=== PATIENT | female | born 1950 | race Caucasian/White ===

== ENCOUNTER 2022-06-17 13:34 | Outpatient (RCR) | payer MEDICARE, SELFPAY ==
--- NOTE | 2022-05-27 15:42 | URNOTE ---
Request received for authorization for Zoledronic acid (Reclast) ([id number]). Prior Authorization is Not Required per [facility] injectable drug authorization list.
[2022-06-17 14:15] VITALS: BP 126/76; PULSE 98; RESP 16; TEMP 36.9; O2SAT 98
[2022-06-17 14:31] LABS: Creatinine* 0.6 mg/dL (0.5-1.5); Est. Creatinine Clearance* 41.99; Estimated Glomerular Filt Rate 97 ml/min
[2022-06-17 14:32] LABS: Calcium* 9.2 mg/dL (8.4-10.6)
== END 2022-12-14 23:59 | disposition home or self-care (01) ==
LOC: CCIC 13:34
PROVIDERS: PCP Family Medicine; Referring Provider Family Medicine; Visit Provider Clinical Nurse Specialist
DX: M81.0 Age-related osteoporosis without current pathological fracture (principal)
CPT/HCPCS: 36415; 82310; 82565; 96374

== ENCOUNTER 2022-08-26 12:47 | Outpatient (CLI) | payer MEDICARE, SELFPAY ==
--- NOTE | 2022-08-26 13:00 | CRLHL7_ITS ---
For Patients: As a result of the Century Cures Act, medical imaging exams and procedure reports are released immediately into your electronic medical record. You may view this report before your referring provider. If you have questions, please contact your health care provider. DXA BONE MINERAL DENSITY STUDY 08/26/2022 Current height (in): 62.0. Weight (lb): 160.0. Menopause age: 54. Ethnicity: White. 1. Have you had a previous hip or vertebral fracture? No. 2. Have you had any fractures during your adult life which did not result from significant trauma (e.g., auto accident)? No. 3. Did either of your parents have a hip fracture? No. 4. Do you smoke? No. 5. Have you ever taken Glucocorticoids? No. 6. Do you have rheumatoid arthritis? No. 7. Do you have secondary osteoporosis? No. 8. Do you drink 3 or more alcoholic drinks per day? No. 9. Are you being treated for osteoporosis? Yes. 10. Have you ever taken any of the following medications: Actonel, Evista, Fosamax, Miacalcin, Reclast, Boniva, Forteo, HRT (i.e. estrogen/hormone therapy), Protelos, Prolia, Vitamin D, Calcium, other ??? please specify. ANSWER: Yes, Fosamax, Reclast, vitamin D, calcium. 11. Do you have any of the following medical conditions: Anorexia or bulimia, asthma or emphysema, end stage renal disease, hyperparathyroidism, any seizure disorders, cancer, inflammatory bowel diseases, hysterectomy, other ??? please specify. ANSWER: No. 12. What was your maximum height (inches)? 64. 13. Do you perform weight bearing exercise regularly? No. 14. Do you regularly consume dairy products? Yes. 15. Do you drink caffeinated beverages? Yes. 16. At what age did your period start? 15. 17. Are you premenopausal? No. 18. How many full term pregnancies have you had? 3. 19. Have you ever missed your period for more than 6 months in a row (not including or menopause)? No. TECHNIQUE: Bone mineral density study was performed using the [employer]. FINDINGS: The results of the study expressed as bone mineral density (BMD) are as follows: Lumbar spine L1 to L3: BMD: 0.838 g/cm2. T-score: -1.6. Z-score: 0.4. Neck Left: BMD: 0.601 g/cm2. T-score: -2.2. Z-score: -0.4. Right: BMD: 0.683 g/cm2. T-score: -1.5. Z-score: 0.3. Total Left: BMD: 0.720 g/cm2. T-score: -1.8. Z-score: -0.3. Right: BMD: 0.757 g/cm2. T-score: -1.5. Z-score: -0.0. IMPRESSION: Osteopenia. *Comparison exams done prior to 01/2020 were performed on different unit, [email or web address]. COMPARISON: Compared with scan of 07/11/2022, the bone mineral density has increased by 5.5 percent at the spine and decreased by 2.0 percent at the hips. Compared with scan of 03/17/2018, the bone mineral density has increased by 11.2 percent at the spine and increased by 4.8 percent at the hips. Eric Hardy M.D. Diagnostic Radiologist [email or web address] NEW/marline / be/Dictated by: Eric Hardy MD @ 08/27/2022 1:18:00 PM (Electronically Signed)
== END 2022-08-26 12:48 | disposition home or self-care (01) ==
LOC: RAD 12:48
PROVIDERS: PCP Family Medicine; Visit Provider Family Medicine
DX: M81.0 Age-related osteoporosis without current pathological fracture (principal); M85.89 Other specified disorders of bone density and structure, multiple sites
CPT/HCPCS: 77080

== ENCOUNTER 2023-05-28 14:04 | Outpatient (CLI) | payer MEDICARE, SELFPAY | END 2023-05-28 14:05 | disposition home or self-care (01) | LOC: NFLDREF 05-30 06:10 | PROVIDERS: PCP Family Medicine; Referring Provider Family Medicine; Visit Provider Family Medicine | DX: E05.90 Thyrotoxicosis, unspecified without thyrotoxic crisis or storm (principal); E78.5 Hyperlipidemia, unspecified; M81.0 Age-related osteoporosis without current pathological fracture | CPT/HCPCS: 80053; 80061; 82306; 84443 ==

== ENCOUNTER 2023-06-08 13:53 | Outpatient (RCR) | payer MEDICARE, SELFPAY ==
--- NOTE | 2023-06-03 12:39 | URNOTE ---
Request received for authorization for Zoledronic acid (Reclast) ([id number]). Prior Authorization is Not Required per [facility] injectable drug authorization list.
[2023-06-08 14:04] VITALS: BP 144/79; PULSE 81; RESP 16; TEMP 36.9; O2SAT 96
== END 2023-12-05 23:59 | disposition home or self-care (01) ==
LOC: CCIC 13:53
PROVIDERS: PCP Family Medicine; Referring Provider Family Medicine; Visit Provider Clinical Nurse Specialist
DX: M81.0 Age-related osteoporosis without current pathological fracture (principal)
CPT/HCPCS: 96374; J3489

== ENCOUNTER 2023-07-19 14:18 | Outpatient (CLI) | payer MEDICARE, SELFPAY | END 2023-07-19 14:19 | disposition home or self-care (01) | LOC: NFLDREF 07-23 18:38 | PROVIDERS: PCP Family Medicine; Referring Provider Family Medicine; Visit Provider Physician Assistant | DX: R30.0 Dysuria (principal); N39.0 Urinary tract infection, site not specified | CPT/HCPCS: 87086; 87186 ==

== ENCOUNTER 2023-09-07 15:47 | Outpatient (CLI) | payer MEDICARE, SELFPAY ==
--- OUTSIDE RECORDS SUMMARY | 2023-09-07 15:50 | XMS_ITS ---
Author Name Unknown Organization [facility] Address [address] [place] [address] Care Team Providers Care Vocational Aide Name Role Phone Unavailable Unavailable Unavailable Surgery Details Not on file Complications Check Surgery Details section. Procedure Estimated Blood Loss Check Surgery Details section. Procedure Findings Check Surgery Details section. Procedure Specimens Taken Check Surgery Details section.
--- OUTSIDE RECORDS SUMMARY | 2023-09-07 15:50 | XMS_ITS | Clinical Summary ---
Author Name Unknown Organization [facility] Address [address] [place] [address] Care Team Providers Care Ferruler Name Role Phone Unavailable Primary Care Provider Unavailabl e Source Comments Patient records contain information from all sites at [facility]. For routine questions regarding patient records, call [phone] during business hours, M-F 8:00 AM - 5:00 PM Central Time. Record requests for emergency care only can be directed to [phone] at any time.[facility] Allergies No known active allergies Immunizations Name Administration Dates Next Due Influenza, Unspecified 07/18/2013 Tdap 07/18/2013 Family History Medical History Relation Name Comments Arrhythmia Brother Coronary artery disease Father Deep vein thrombosis Father Tobacco Use Son Relation Name Status Comments Brother Father Son Social History Tobacco Use Types Packs/Day Years Used Date Smoking Tobacco: Former Social Connection and Isolation Panel [NHANES] A nswer Date Recorded Frequency of Communication with Friends and Fami ly Three times a week 02/19/2019 Frequency of Social Gatherin gs with Friends and Family Patient declined 02/19/2019 Attends Spiritism Services Patient declined 01/29 Active Member of Clubs or Organizations Patient declined 02/19/2019 Attends Club or Organization Meetings Patient de clined 02/19/2019 Marital Status 02/19/2019 AUDIT-C Answer Date Recorded Frequency of Alcohol Consumption 2-3 times a wee k 02/19/2019 Average Number of Drinks 3 or 4 019 Frequency of Binge Drinking Never 01/29 [facility] of Occupat ional Health - Occupational Stress Questionnaire Answer Date Recorded Feeling of Stress To some extent 02/19/2019 Hunger Vital Sign Answer Date Recorded Worried About Running Out of Food in the Last Ye ar Never true 02/19/2019 Ran Out of Food in the Last Year Never true 02/19/2019 PRAPARE - Transportation Answer Date Re corded Lack of Transportation (Medical) No 02/19/2019 Lack of Transportation (Non-Medical) No 02/19/2019 Nutrition Answer Date Recorded Nutrition: EVOO Fat Source Unknown 10/31 Nutrition: Servings of Fruits/Vegetables per Day Not on file 10/31/2020 Dental Answer Date Recorded Dental: Regular Dentist Unknown 11/01/19 Education Answer Date Recorded What is the highest level of school you have completed or the highest degree you have received? 12th grade 02/19/2019 Sex and Gender Information Value Date Recorded Sex Assigned at Not on file Gender Identity Not on file Sexual Orientation Not on file Last Filed Vital Signs Vital Sign Reading Time Taken Comments Blood Pressure 110/60 08/28/2013 3:02 PM TRAINING INSTRUCTOR Pulse 72 08/28/2013 3:02 PM TRAINING INSTRUCTOR Temperature - - Respiratory Rate 18 08/28/2013 3:02 PM TRAINING INSTRUCTOR Oxygen Saturation - - Inhaled Oxygen Concentration - - Weight 72.9 kg (160 lb 11.5 oz) 08/28/2013 3:02 PM TRAINING INSTRUCTOR Height 160 cm (5' 2.99) 07/18/2013 7:54 AM TRAINING INSTRUCTOR Body Mass Index 28.48 07/18/2013 7:54 AM TRAINING INSTRUCTOR Plan of Treatment Health Maintenance Due Date Last Done Comments Bone Density Scan (Osteoporo sis Screen) 1952 CT Colonography 1950 Cologuard 1950 FIT 1950 Hepatitis C Screening 1950 Colonoscopy 12/17/2015 12/16/2005 Colorectal Cancer Screening 12/17/2015 Fasting Glucose for Diabetes Screening 07/18/2016 07/18/2013, 02/23/2012 Depression Screening (Annual PHQ-2) 08/30/2022 Fall Risk Screen (Annual) 08/30/2022 COVID-19 Vaccine (4 - 2022-2 4 season) 2023 07/18/2021, 11/01/2020, 10/04/2020 DTaP,Tdap,and Td Vaccines (2 - Td or Tdap) 07/18/2023 07/18/2013, 07/18/2013 Mammogram 07/22/2023 07/22/2022, 06/30, 07/11/2020, Additional history exists Pneumococcal vaccine (65+ years) Completed 09/07/19, 09/16/2017 Zoster Vaccines Completed 09/15/2021, 03/2021, 02/19/2015 Influenza Vaccine Completed 05/05/2023, , 06/26/2020, Additional history exists
--- OUTSIDE RECORDS SUMMARY | 2023-09-07 15:50 | XMS_ITS | Encounter Summary ---
Author Name Unknown Organization [facility] Address [address] [place] [address] Care Team Providers Care Chaplaincy Name Role Phone HuseyinRamos Primary Care Provider Unavaila ble Encounter Details Date Type Department Care Team (Late st Contact Info) Description 06/23/2008 [facility] [address] [place] [phone] Linnea Rutherford [address] [place] [phone] Social History Tobacco Use Types Packs/Day Years Used Date Smoking Tobacco: Former Smokeless Tobacco: Never Alcohol Use Standard Drinks/Week Comments Yes 0 (1 standard drink = 0.6 oz pur e alcohol) once a week Sex and Gender Information Value Date Recorded Sex Assigned at Not on file Gender Identity Not on file Sexual Orientation Not on file documented as of this encounter Plan of Treatment Not on file documented as of this encounter Visit Diagnoses Not on filedocumented in this encounter Care Teams Chaplaincy Relationship Specialty Start Date End Date Edie FontanezBrodhead PCP - General 12/31/05 documented as of this encounter
--- OUTSIDE RECORDS SUMMARY | 2023-09-07 15:50 | XMS_ITS | Referral Summary ---
Author Name Unknown Organization [facility] Address [address] [place] [address] Care Team Providers Care Carpenter Mine Name Role Phone Unavailable Primary Care Provider Unavailabl e Source Comments Patient records contain information from all sites at [facility]. For routine questions regarding patient records, call [phone] during business hours, M-F 8:00 AM - 5:00 PM Central Time. Record requests for emergency care only can be directed to [phone] at any time.[facility] Allergies No known active allergies Immunizations Name Administration Dates Next Due Influenza, Unspecified 07/18/2013 Tdap 07/18/2013 Social History Tobacco Use Types Packs/Day Years Used Date Smoking Tobacco: Former Social Connection and Isolation Panel [NHANES] A nswer Date Recorded Frequency of Communication with Friends and Fami ly Three times a week 02/19/2019 Frequency of Social Gatherin gs with Friends and Family Patient declined 02/19/2019 Attends Buddhist Services Patient declined 01/29 Active Member of Clubs or Organizations Patient declined 02/19/2019 Attends Club or Organization Meetings Patient de clined 02/19/2019 Marital Status 02/19/2019 AUDIT-C Answer Date Recorded Frequency of Alcohol Consumption 2-3 times a wee k 02/19/2019 Average Number of Drinks 3 or 4 019 Frequency of Binge Drinking Never 01/29 [facility] [place] of Occupat ional Health - Occupational Stress [...] Date Recorded Dental: Regular Dentist Unknown 11/01/19 21 Education Answer Date Recorded What is the highest level of school you have completed or the highest degree you have received? 12th grade 02/19/2019 Sex and Gender Information Value Date Recorded Sex Assigned at Not on file Gender Identity Not on file Sexual Orientation Not on file Last Filed Vital Signs Vital Sign Reading Time Taken Comments Blood Pressure 110/60 08/28/2013 3:02 PM HAND BOOTMAKER Pulse 72 08/28/2013 3:02 PM HAND BOOTMAKER Temperature - - Respiratory Rate 18 08/28/2013 3:02 PM HAND BOOTMAKER Oxygen Saturation - - Inhaled Oxygen Concentration - - Weight 72.9 kg (160 lb 11.5 oz) 08/28/2013 3:02 PM HAND BOOTMAKER Height 160 cm (5' 2.99) 07/18/2013 7:54 AM HAND BOOTMAKER Body Mass Index 28.48 07/18/2013 7:54 AM HAND BOOTMAKER Plan of Treatment Not on file
--- OUTSIDE RECORDS SUMMARY | 2023-09-07 15:50 | XMS_ITS | Clinical Summary ---
Author Name Unknown Organization [facility] Address [address] [place] [address] Care Team Providers Care Soda Room Operator Name Role Phone Frmarco aMonikaPort Orange Primary Care Provider Unavaila ble Allergies No known active allergies Medications Medication Sig Dispensed Refills Start Date End Date Status alendronate (FOSAMAX) 70 MG tablet Take 70 mg by mouth every 7 days 0 07/09/2015 Active simvastatin (ZOCOR) 10 MG tablet 0 07/24/2016 Active cholecalciferol (VITAMIN D) 1000 UNIT tablet 0 10/14/2016 Active Active Problems Problem Noted Date Diagnosed Date Graves disease 08/16/2015 Hyperthyroidism 08/02/2015 Resolved Problems Problem Noted Date Diagnosed Date Resolved Date Graves disease 08/16/2015 08/16/2015 iamSPRAIN ROTATOR CUFF 05/27/200507/16 Immunizations Name Administration Dates Next Due Influenza (High Dose) 3 valent vaccine 9 Influenza Vaccine, 6+MO IM ( QUADRIVALENT W/PRESERVATIVES) 07/30/2015 Pneumo Conj 13-V (2010&after) 09/16/2017 Pneumococcal 23 valent 09/07/2018 Tdap (Adult) Unspecified Formulation 07/18/2013 Zoster vaccine, live 02/19/2015 Family History Medical History Relation Comments Heart Disease Brother Heart Disease Father Relation Status Comments Brother Father Social History Tobacco Use Types Packs/Day Years Used Date Smoking Tobacco: Former Smokeless Tobacco: Never Tobacco Cessation:Counseling Given: Yes Alcohol Use Standard Drinks/Week Comments Yes 0 (1 standard drink = 0.6 oz pur e alcohol) once a week Adolescent Education Answer Date Record ed Getting School Help Needed Not on file 05/31 Sex and Gender Information Value Date Recorded Sex Assigned at Not on file Gender Identity Not on file Sexual Orientation Not on file Last Filed Vital Signs Vital Sign Reading Time Taken Comments Blood Pressure 136/83 09/01/2019 9:42 AM CUSTOM SEAMSTRESS Pulse 71 09/01/2019 9:42 AM CUSTOM SEAMSTRESS Temperature 36.6 ??C (97.9 ??F) 09/01/2019 9:42 AM CS T Respiratory Rate 16 09/01/2019 9:42 AM CUSTOM SEAMSTRESS Oxygen Saturation 98% 03/16/2019 10:00 AM CDT Inhaled Oxygen Concentration - - Weight 74.4 kg (164 lb) 09/01/2019 9:42 AM CUSTOM SEAMSTRESS Height 158.8 cm (5' 2.5) 03/16/2019 10:00 AM CD T Body Mass Index 29.52 03/16/2019 10:00 AM CDT Plan of Treatment Health Maintenance Due Date Last Done Comments ADVANCE CARE PLANNING 1950 ANNUAL REVIEW OF HM ORDERS 1952 CT COLONOGRAPHY 1952 FIT 1950 FLEX SIG 1950 MAMMO SCREENING 1950 sDNA (Cologuard) 1950 COVID-19 Vaccine (#1) 03[birth year]20/1953 HEPATITIS C SCREENING 1970 LUNG CANCER SCREENING 2002 RSV VACCINE ( & 60+) (1 - 1-dose 60+ series) 2012 ZOSTER IMMUNIZATION (2 of 3) 04/16/2015 02/19/2015 MEDICARE ANNUAL WELLNESS VISIT 2017 FALL RISK ASSESSMENT 09/19/2019 09/19/2018 LIPID 02/20/2020 02/19/2015 PHQ-2 (once per calendar year) 2022 INFLUENZA VACCINE (#1) 2023 9, 09/07/2018, 09/16/2017, Additional history exists DTAP/TDAP/TD IMMUNIZATION (2 - Td or Tdap) 07/18/2023 07/18/2013 COLONOSCOPY 08/24/2026 08/24/2016, 12/16/2005 COLORECTAL CANCER SCREENING 08/24/2026 DEXA 02/19/2030 02/19/2015, 05/31, 06/15/2008, Additional history exists Pneumococcal Vaccine: 65+ Years Completed 09/07/2018, 09/16/2017 HPV IMMUNIZATION Aged Out No longer e ligible based on patient's age to complete this topic IPV IMMUNIZATION Aged Out No longer e ligible based on patient's age to complete this topic MENINGITIS IMMUNIZATION Aged Out No l onger eligible based on patient's age to complete this topic RSV MONOCLONAL ANTIBODY Aged Out No l onger eligible based on patient's age to complete this topic Care Teams Soda Room Operator Relationship Specialty Start Date End Date Monika Fontanez PCP - General 12/31/05
--- OUTSIDE RECORDS SUMMARY | 2023-09-07 15:50 | XMS_ITS | Referral Summary ---
Author Name Unknown Organization [facility] Address [address] [place] [address] Care Team Providers Care Information Systems Security Manager Name Role Phone Frmarco aRamosWoodworth Primary Care Provider Unavaila ble Allergies No [...] Unspecified Formulation 07/18/2013 Zoster vaccine, live 02/19/2015 Social History Tobacco Use Types Packs/Day Years [...] Comments Blood Pressure 136/83 09/01/2019 9:42 AM RESIN MIXER Pulse 71 09/01/2019 9:42 AM RESIN MIXER Temperature 36.6 ??C (97.9 ??F) 09/01/2019 9:42 AM CS T Respiratory Rate 16 09/01/2019 9:42 AM RESIN MIXER Oxygen Saturation 98% 03/16/2019 10:00 AM CDT Inhaled Oxygen Concentration - - Weight 74.4 kg (164 lb) 09/01/2019 9:42 AM RESIN MIXER Height 158.8 cm (5' 2.5) 03/16/2019 10:00 AM CD T Body Mass Index 29.52 03/16/2019 10:00 AM CDT Plan of Treatment Not on file Care Teams Information Systems Security Manager Relationship Specialty Start Date End Date Ramos Fontanez PCP - General 12/31/05
--- NOTE | 2023-09-07 16:00 | CRLHL7_ITS ---
For Patients: As a result of the Cures Act, medical imaging exams and procedure reports are released immediately into your electronic medical record. You may view this report before your referring provider. If you have questions, please contact your health care provider. BILATERAL SCREENING MAMMOGRAM WITH COMPUTER-AIDED DETECTION AND TOMOSYNTHESIS TECHNIQUE: CC and MLO views were obtained. These mammographic images have been obtained using full-field digital technique. These mammographic images were interpreted with the benefit of computer-aided detection. Breast Tomosynthesis was used in this interpretation. COMPARISON FILM: 07/22/22, 07/14/21, 07/11/20. FINDINGS: There are scattered areas of fibroglandular density IMPRESSION: There is no radiographic evidence for malignancy. ASSESSMENT: BI-RADS Category 1: Negative RECOMMENDATION: Routine screening mammogram in 1 year. A lay language report of this examination will be provided to the patient. ZACH FERNANDEZ M.D. Diagnostic/Nuclear Medicine Radiologist [email or web address] Transcribed: 3:01 p.mManny leslie/Dictated by: Zach Fernandez MD @ 09/09/2023 9:18:00 AM (Electronically Signed)
== END 2023-09-07 15:48 | disposition home or self-care (01) ==
LOC: MAMMO 15:47
PROVIDERS: PCP Family Medicine; Visit Provider Family Medicine
DX: Z12.31 Encounter for screening mammogram for malignant neoplasm of breast (principal)
CPT/HCPCS: 77063; 77067

== ENCOUNTER 2023-10-06 14:38 | Outpatient (CLI) | payer MEDICARE, SELFPAY ==
--- OUTSIDE RECORDS SUMMARY | 2023-10-08 06:06 | XMS_ITS | Referral Summary ---
Author Name Unknown Organization [facility] Address [address] [place] [address] Care Team Providers Care Medical Chemist Name Role Phone Frmarco aMonikaBenkelman Primary Care Provider Unavaila ble Allergies No [...] Comments Blood Pressure 136/83 09/01/2019 9:42 AM CUSTOMS DIRECTOR Pulse 71 09/01/2019 9:42 AM CUSTOMS DIRECTOR Temperature 36.6 ??C (97.9 ??F) 09/01/2019 9:42 AM CS T Respiratory Rate 16 09/01/2019 9:42 AM CUSTOMS DIRECTOR Oxygen Saturation 98% 03/16/2019 10:00 AM CDT Inhaled Oxygen Concentration - - Weight 74.4 kg (164 lb) 09/01/2019 9:42 AM CUSTOMS DIRECTOR Height 158.8 cm (5' 2.5) 03/16/2019 10:00 AM CD T Body Mass Index 29.52 03/16/2019 10:00 AM CDT Plan of Treatment Not on file Care Teams Medical Chemist Relationship Specialty Start Date End Date Monika Fontanez PCP - General 12/31/05
--- OUTSIDE RECORDS SUMMARY | 2023-10-08 06:06 | XMS_ITS | Encounter Summary ---
Author Name Unknown Organization [facility] Address [address] [place] [address] Care Team Providers Care Analytical Consultant Name Role Phone HuseyinRamos Primary Care Provider Unavaila ble Encounter Details Date Type Department Care Team (Late st Contact Info) Description 06/14/2008 [facility] [address] [place] [phone] Linnea Rutherford [address] [place] [phone] Social History Tobacco Use Types Packs/Day Years [...] on filedocumented in this encounter Care Teams Analytical Consultant Relationship Specialty Start Date End Date Edie FontanezWilliamsport PCP - General 12/31/05 documented as of this encounter
--- OUTSIDE RECORDS SUMMARY | 2023-10-08 06:06 | XMS_ITS ---
Author Name Unknown Organization [facility] Address [address] [place] [address] Care Team Providers Care Disability Insurance Claim Examiner Name Role Phone Unavailable Unavailable Unavailable Surgery Details Not on file Complications Check Surgery Details section. Procedure Estimated Blood Loss Check Surgery Details section. Procedure Findings Check Surgery Details section. Procedure Specimens Taken Check Surgery Details section.
--- OUTSIDE RECORDS SUMMARY | 2023-10-08 06:06 | XMS_ITS | Encounter Summary ---
Author Name Unknown Organization [facility] Address [address] [place] [address] Care Team Providers Care Mail Clerks Supervisor Name Role Phone HuseyinRamos Primary Care Provider Unavaila ble Encounter Details Date Type Department Care Team (Late st Contact Info) Description 06/23/2008 [facility] in [facility] [address] [place] [phone] Linnea Rutherford [address] [place] [phone] Social History Tobacco Use Types Packs/Day Years [...] on filedocumented in this encounter Care Teams Mail Clerks Supervisor Relationship Specialty Start Date End Date Edie FontanezDuncan PCP - General 12/31/05 documented as of this encounter
--- OUTSIDE RECORDS SUMMARY | 2023-10-08 06:06 | XMS_ITS | Referral Summary ---
Author Name Unknown Organization [facility] Address [address] [place] [address] Care Team Providers Care Gutter Hanger Name Role Phone Unavailable Primary Care Provider Unavailabl e Source Comments Patient records contain information from all sites at [facility]. For routine questions regarding patient records, call [phone] during business hours, M-F 8:00 AM - 5:00 PM Central Time. Record requests for emergency care only can be directed to [phone] at any time.[facility] Allergies No known active allergies Immunizations [...] Friends and Family Patient declined 02/19/2019 Attends Sikhism Services Patient declined 01/29 Active Member of Clubs or Organizations Patient declined 02/19/2019 Attends Club or Organization Meetings Patient de clined 02/19/2019 Marital Status 02/19/2019 AUDIT-C Answer Date Recorded Frequency of Alcohol Consumption 2-3 times a wee k 02/19/2019 Average Number of Drinks 3 or 4 019 Frequency of Binge Drinking Never 01/29 [facility] [place] of Occupat ional Health - Occupational Stress [...] Comments Blood Pressure 110/60 08/28/2013 3:02 PM CHIEF OF INTERNAL MEDICINE Pulse 72 08/28/2013 3:02 PM CHIEF OF INTERNAL MEDICINE Temperature - - Respiratory Rate 18 08/28/2013 3:02 PM CHIEF OF INTERNAL MEDICINE Oxygen Saturation - - Inhaled Oxygen Concentration - - Weight 72.9 kg (160 lb 11.5 oz) 08/28/2013 3:02 PM CHIEF OF INTERNAL MEDICINE Height 160 cm (5' 2.99) 07/18/2013 7:54 AM CHIEF OF INTERNAL MEDICINE Body Mass Index 28.48 07/18/2013 7:54 AM CHIEF OF INTERNAL MEDICINE Plan of Treatment Not on file
--- OUTSIDE RECORDS SUMMARY | 2023-10-08 06:06 | XMS_ITS | Clinical Summary ---
Author Name Unknown Organization [facility] Address [address] [place] [address] Care Team Providers Care Charge Loader Name Role Phone Frmarco aMonikaDuke Primary Care Provider Unavaila ble Allergies No [...] Comments Blood Pressure 136/83 09/01/2019 9:42 AM BINDER SELECTOR Pulse 71 09/01/2019 9:42 AM BINDER SELECTOR Temperature 36.6 ??C (97.9 ??F) 09/01/2019 9:42 AM CS T Respiratory Rate 16 09/01/2019 9:42 AM BINDER SELECTOR Oxygen Saturation 98% 03/16/2019 10:00 AM CDT Inhaled Oxygen Concentration - - Weight 74.4 kg (164 lb) 09/01/2019 9:42 AM BINDER SELECTOR Height 158.8 cm (5' 2.5) 03/16/2019 10:00 [...] 04/16/2015 02/19/2015 MEDICARE ANNUAL WELLNESS VISIT 2017 GLUCOSE 03/05/2018 03/05/2015, 02/19/2015 FALL RISK ASSESSMENT 09/19/2019 09/19/2018 LIPID 02/20/2020 02/19/2015 INFLUENZA VACCINE (#1) 2023 9, 09/07/2018, 09/16/2017, Additional history exists DTAP/TDAP/TD IMMUNIZATION (2 - Td or Tdap) 07/18/2023 07/18/2013 PHQ-2 (once per calendar year) 2023 COLONOSCOPY 08/24/2026 08/24/2016, 12/16/2005 COLORECTAL CANCER SCREENING [...] age to complete this topic Care Teams Charge Loader Relationship Specialty Start Date End Date Monika Fontanez PCP - General 12/31/05
--- OUTSIDE RECORDS SUMMARY | 2023-10-08 06:06 | XMS_ITS | Clinical Summary ---
Author Name Unknown Organization [facility] Address [address] [place] [address] Care Team Providers Care Grinder Set Up Operator Surface Name Role Phone Unavailable Primary Care Provider Unavailabl e Source Comments Patient records contain information from all sites at [facility]. For routine questions regarding patient records, call [phone] during business hours, M-F 8:00 AM - 5:00 PM Central Time. Record requests for emergency care only can be directed to [phone] at any time.[facility] Allergies No known active allergies Immunizations Name [...] Friends and Family Patient declined 02/19/2019 Attends Yazidi Services Patient declined 01/29 Active Member of Clubs or Organizations Patient declined 02/19/2019 Attends Club or Organization Meetings Patient de clined 02/19/2019 Marital Status 02/19/2019 AUDIT-C Answer Date Recorded Frequency of Alcohol Consumption 2-3 times a wee k 02/19/2019 Average Number of Drinks 3 or 4 019 Frequency of Binge Drinking Never 01/29 [facility] [place] of Occupat ional Health - Occupational Stress [...] Comments Blood Pressure 110/60 08/28/2013 3:02 PM HYPERBARIC TECH Pulse 72 08/28/2013 3:02 PM HYPERBARIC TECH Temperature - - Respiratory Rate 18 08/28/2013 3:02 PM HYPERBARIC TECH Oxygen Saturation - - Inhaled Oxygen Concentration - - Weight 72.9 kg (160 lb 11.5 oz) 08/28/2013 3:02 PM HYPERBARIC TECH Height 160 cm (5' 2.99) 07/18/2013 7:54 AM HYPERBARIC TECH Body Mass Index 28.48 07/18/2013 7:54 AM HYPERBARIC TECH Plan of Treatment Health Maintenance Due Date Last Done Comments Bone Density Scan (Osteoporo sis Screen) 1950 CT Colonography 1950 Cologuard 1950 FIT 1950 Hepatitis C Screening 1950 Colonoscopy 12/17/2015 12/16/2005 Colorectal Cancer Screening 12/17/2015 Fasting Glucose for Diabetes Screening 07/18/2016 07/18/2013, 02/23/2012 COVID-19 Vaccine ( - 2022-2 4 season) 2023 07/18/2021, 11/01/2020, 10/04/2020 DTaP,Tdap,and Td Vaccines (2 - Td or Tdap) 07/18/2023 07/18/2013, 07/18/2013 Mammogram 07/22/2023 07/22/2022, 06/30, 07/11/2020, Additional history exists Depression Screening (Annual PHQ-2) 08/30/2023 Fall Risk Screen (Annual) 08/30/2023 Pneumococcal vaccine (65+ years) Completed 09/07/19, 09/16/2017 Zoster Vaccines Completed 09/15/2021, 03/2021, 02/19/2015 Influenza Vaccine Completed 05/05/2023, , 06/26/2020, Additional history exists
== END 2023-10-06 14:39 | disposition home or self-care (01) ==
LOC: NFLDREF 10-08 06:04
PROVIDERS: PCP Family Medicine; Referring Provider Family Medicine; Visit Provider Physician Assistant
DX: R35.0 Frequency of micturition (principal); N39.0 Urinary tract infection, site not specified
CPT/HCPCS: 87086; 87186

== ENCOUNTER 2023-10-19 07:09 | Outpatient (CLI) | payer MEDICARE, SELFPAY ==
--- OUTSIDE RECORDS SUMMARY | 2023-10-19 07:11 | XMS_ITS | Referral Summary ---
Author Name Unknown Organization [facility] Address [address] [place] [address] Care Team Providers Care Lithographic Printing Machinist Name Role Phone Frmarco aMonikaSaratoga Primary Care Provider Unavaila ble Allergies No [...] Comments Blood Pressure 136/83 09/01/2019 9:42 AM OBSTETRICS/GYNECOLOGY NURSE Pulse 71 09/01/2019 9:42 AM OBSTETRICS/GYNECOLOGY NURSE Temperature 36.6 ??C (97.9 ??F) 09/01/2019 9:42 AM CS T Respiratory Rate 16 09/01/2019 9:42 AM OBSTETRICS/GYNECOLOGY NURSE Oxygen Saturation 98% 03/16/2019 10:00 AM CDT Inhaled Oxygen Concentration - - Weight 74.4 kg (164 lb) 09/01/2019 9:42 AM OBSTETRICS/GYNECOLOGY NURSE Height 158.8 cm (5' 2.5) 03/16/2019 10:00 AM CD T Body Mass Index 29.52 03/16/2019 10:00 AM CDT Plan of Treatment Not on file Care Teams Lithographic Printing Machinist Relationship Specialty Start Date End Date Monika Fontanez PCP - General 12/31/05
--- OUTSIDE RECORDS SUMMARY | 2023-10-19 07:11 | XMS_ITS | Encounter Summary ---
Author Name Unknown Organization [facility] Address [address] [place] [address] Care Team Providers Care Supervisor Refractory Products Name Role Phone HuseyinRamos Primary Care Provider Unavaila ble Encounter Details Date Type Department Care Team (Late st Contact Info) Description 06/23/2008 [facility] in [facility] [address] [place] [phone] Linnea Rutherford [address] [place] [phone] Social History Tobacco Use Types Packs/Day Years [...] on filedocumented in this encounter Care Teams Supervisor Refractory Products Relationship Specialty Start Date End Date Huseyin Webber PCP - General 12/31/05 documented as of this encounter
--- OUTSIDE RECORDS SUMMARY | 2023-10-19 07:11 | XMS_ITS | Referral Summary ---
Author Name Unknown Organization [facility] Address [address] [place] [address] Care Team Providers Care Hr Shared Services Consultant Name Role Phone Unavailable Primary Care Provider Unavailabl e Source Comments Patient records contain information from all sites at [facility]. For routine questions regarding patient records, call [phone] during business hours, M-F 8:00 AM - 5:00 PM Central Time. Record requests for emergency care only can be directed to [phone] at any time.[facility] Allergies No known active allergies Immunizations Name [...] Friends and Family Patient declined 02/19/2019 Attends Pentecostalism Services Patient declined 01/29 Active Member of Clubs or Organizations Patient declined 02/19/2019 Attends Club or Organization Meetings Patient de clined 02/19/2019 Marital Status 02/19/2019 AUDIT-C Answer Date Recorded Frequency of Alcohol Consumption 2-3 times a wee k 02/19/2019 Average Number of Drinks 3 or 4 019 Frequency of Binge Drinking Never 01/29 [facility] [place] of Occupat ional Health - Occupational Stress [...] Comments Blood Pressure 110/60 08/28/2013 3:02 PM RECYCLABLE MATERIALS SORTER Pulse 72 08/28/2013 3:02 PM RECYCLABLE MATERIALS SORTER Temperature - - Respiratory Rate 18 08/28/2013 3:02 PM RECYCLABLE MATERIALS SORTER Oxygen Saturation - - Inhaled Oxygen Concentration - - Weight 72.9 kg (160 lb 11.5 oz) 08/28/2013 3:02 PM RECYCLABLE MATERIALS SORTER Height 160 cm (5' 2.99) 07/18/2013 7:54 AM RECYCLABLE MATERIALS SORTER Body Mass Index 28.48 07/18/2013 7:54 AM RECYCLABLE MATERIALS SORTER Plan of Treatment Not on file
--- OUTSIDE RECORDS SUMMARY | 2023-10-19 07:11 | XMS_ITS | Encounter Summary ---
Author Name Unknown Organization [facility] Address [address] [place] [address] Care Team Providers Care Windscreen Fitter Name Role Phone HuseyinRamos Primary Care Provider Unavaila ble Encounter Details Date Type Department Care Team (Late st Contact Info) Description 06/14/2008 [facility] in [facility] [address] [place] [phone] Linnea Rutherford [address] [place] [phone] Social History Tobacco Use Types Packs/Day Years [...] on filedocumented in this encounter Care Teams Windscreen Fitter Relationship Specialty Start Date End Date Huseyin Keene PCP - General 12/31/05 documented as of this encounter
--- OUTSIDE RECORDS SUMMARY | 2023-10-19 07:11 | XMS_ITS | Clinical Summary ---
Author Name Unknown Organization [facility] Address [address] [place] [address] Care Team Providers Care Orthopedics Pediatric Physician Name Role Phone Frmarco aMon[place]igs[place] Primary Care Provider Unavaila ble Allergies No [...] Comments Blood Pressure 136/83 09/01/2019 9:42 AM LABOR EMPLOYMENT ASSOCIATE Pulse 71 09/01/2019 9:42 AM LABOR EMPLOYMENT ASSOCIATE Temperature 36.6 ??C (97.9 ??F) 09/01/2019 9:42 AM CS T Respiratory Rate 16 09/01/2019 9:42 AM LABOR EMPLOYMENT ASSOCIATE Oxygen Saturation 98% 03/16/2019 10:00 AM CDT Inhaled Oxygen Concentration - - Weight 74.4 kg (164 lb) 09/01/2019 9:42 AM LABOR EMPLOYMENT ASSOCIATE Height 158.8 cm (5' 2.5) 03/16/2019 10:00 [...] age to complete this topic Care Teams Orthopedics Pediatric Physician Relationship Specialty Start Date End Date oMnika Fontanez PCP - General 12/31/05
--- OUTSIDE RECORDS SUMMARY | 2023-10-19 07:11 | XMS_ITS | Clinical Summary ---
Author Name Unknown Organization [facility] Address [address] [place] [address] Care Team Providers Care Bill Of Lading Clerk Name Role Phone Unavailable Primary Care Provider Unavailabl e Source Comments Patient records contain information from all sites at [facility]. For routine questions regarding patient records, call [phone] during business hours, M-F 8:00 AM - 5:00 PM Central Time. Record requests for emergency care only can be directed to [phone] at any time.[facility] Allergies No known active allergies Immunizations [...] Friends and Family Patient declined 02/19/2019 Attends Jainism Services Patient declined 01/29 Active Member of Clubs or Organizations Patient declined 02/19/2019 Attends Club or Organization Meetings Patient de clined 02/19/2019 Marital Status 02/19/2019 AUDIT-C Answer Date Recorded Frequency of Alcohol Consumption 2-3 times a wee k 02/19/2019 Average Number of Drinks 3 or 4 019 Frequency of Binge Drinking Never 01/29 [facility] [place] of Occupat ional Health - Occupational Stress [...] Comments Blood Pressure 110/60 08/28/2013 3:02 PM BRAND DIRECTOR Pulse 72 08/28/2013 3:02 PM BRAND DIRECTOR Temperature - - Respiratory Rate 18 08/28/2013 3:02 PM BRAND DIRECTOR Oxygen Saturation - - Inhaled Oxygen Concentration - - Weight 72.9 kg (160 lb 11.5 oz) 08/28/2013 3:02 PM BRAND DIRECTOR Height 160 cm (5' 2.99) 07/18/2013 7:54 AM BRAND DIRECTOR Body Mass Index 28.48 07/18/2013 7:54 AM BRAND DIRECTOR Plan of Treatment Health Maintenance Due Date [...]
--- OUTSIDE RECORDS SUMMARY | 2023-10-19 07:12 | XMS_ITS ---
Author Name Unknown Organization [facility] Address [address] [place] [address] Care Team Providers Care Tube Laser Operator Name Role Phone Unavailable Unavailable Unavailable Surgery Details Not on file Complications Check Surgery Details section. Procedure Estimated Blood Loss Check Surgery Details section. Procedure Findings Check Surgery Details section. Procedure Specimens Taken Check Surgery Details section.
--- NOTE | 2023-10-19 07:15 | MR_ITS ---
[facility] [address] [facility] [address] Phone:?[phone] Fax:?[phone] Referring Physician Information: Tommy Cook M.D. [address] [facility] [address] Phone:?[phone] Fax:?[phone] Patient:Laney Ferguson D.O.B:?1950 Sex:?Female Phone:?[phone] [facility] MRN:?[id number] Exam Date:?10/19/2023 EXAM: MRI CERVICAL SPINE WITHOUT CONTRAST CLINICAL INFORMATION: Cervical radiculopathy region suspect C6-7. TECHNICAL INFORMATION: T1, T2 FSE and GRE, and STIR sagittal thin sections through the cervical spine with T2 FSE and GRE axial sections at selected levels. INTERPRETATION: Partially visualized intracranial structures appear normal. No Chiari malformation. Normal signal in the cervical spinal cord. Mild cervical lordotic straightening. Vertebral body heights are maintained. Normal atlantodental and atlantooccipital articulations. Paraspinal soft tissues appear normal. C2-3: Moderate right facet degeneration. No central or foraminal stenosis. C3-4: Developing left facet ankylosis. Mild to moderate disc degeneration and 2 mm degenerative spondylolisthesis, uncovertebral spurring, left facet degeneration. No central stenosis. Mild right and moderate to severe left foraminal stenosis. C4-5: Moderate disc degeneration with prominent left asymmetric degenerative endplate inflammation (Modic 1 signal), disc bulge and uncovertebral spurring, normal facet joints. No central stenosis. Severe right and moderate to severe left foraminal stenosis. C5-6: Moderate to severe disc degeneration, disc bulge and uncovertebral spurring, normal facet joints. No central stenosis. Mild right and moderate to severe left foraminal stenosis. C6-7: Moderate severe disc degeneration, subtle degenerative endplate inflammation, disc bulge and uncovertebral normal facet joints. No central stenosis. Moderate right and moderate to severe left foraminal stenosis. C7-T1, T1-2: Mild disc degeneration. No stenosis or impingement. CONCLUSION: Multilevel spondylosis with the following notable findings: 1. Chronic foraminal stenosis at least moderate to severe left C3-4 to C6-7, and right C4-5. 2. C4-5 prominent type 1 discogenic signal, minimally C6-7. 3. C2-3 moderate right facet degeneration, left C3-4 facet degeneration with developing ankylosis. Electronically signed on 10/20/2023 11:25:[address] M.D.
== END 2023-10-19 07:10 | disposition home or self-care (01) ==
LOC: MRI 07:09
PROVIDERS: PCP Family Medicine; Visit Provider Family Medicine
DX: M54.12 Radiculopathy, cervical region (principal); M48.02 Spinal stenosis, cervical region; M50.31 Other cervical disc degeneration, high cervical region
CPT/HCPCS: 72141

== ENCOUNTER 2024-01-05 15:30 | Outpatient (RCR) | payer MEDICARE, SELFPAY ==
--- NOTE | 2023-11-29 17:20 | PT.OPEX ---
PT [facility] Outpatient Eval PT [facility] Outpatient Eval Start: 11/29/23 10:08 Freq: Status: Active Protocol: Document 11/29/23 10:09 GUILLERMINA (Rec: 11/29/23 16:16 GUILLERMINA [id number]) E-signed By Yelitza Burks, PT Physical Therapy Outpatient Evaluation Insurance Information Recert Due Date 02/23/24 Insurance Name Medicare B,UCare Medical Diagnosis Cervical Radiculopathy C6 Treating Diagnosis Cervicalgia, radiculopathy- cervical, DNF and periscapular weakness Referring MD Cook Subjective Subjective Chely reports to PT with primary complaint of acute on chronic neck pain. Pain started about 2 months ago. With sharp pain mostly in the right side of her neck and radiating down to her shoulder and occasionally the elbow. 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 She has previously had R shoulder issues with RC tear however has done PT in the past and this pain feels different than that did in the past. She received R transforaminal DIAMOND C4-C5 in the middle of October which has helped the severity of the pain. She has tried ice and heat without much relief. She was originally not able to move her head to the side following the initial start of pain however now able to move it about 50%. She does do a lot of looking down at her ipad as well which she feels could be contributing to the pain. Denies headaches. Goals are to reduce neck and right shoulder pain in order to improve ability to drive, work (pushing, lifting, swinging arm). PMH: R RCT MRI 10/19/23: Multilevel spondylosis with the following notable findings : 1. Chronic foraminal stenosis at least moderate to severe left C3-4 to C6-7, and right C4-5. 2. C4-5 prominent type 1 discogenic signal, minimally C6-7. 3. C2-3 moderate right facet degeneration, left C3-4 facet degeneration with developing ankylosis. 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 Precautions Therapy Limitations/Systems Review Not Limited Objective Other/Pertinent Objective Seated posture: forward head and rounded shoulders, prominent inferior and medial border of R>L scapula Cervical ROM: -Flx: 16 -Ext: 11 -R Rot: 43 -L Rot: 50 -R Sidebend: 11 -L Sidebend: 15 DNF strength: 5 sec prior to accessory muscle use Spurling: + pain Distraction: + symptom relieving Palpation: excessive C-spine curvature, increased tone L>R UT, cervical paraspinals, hypomobility R cervical sideglides throughout c-spine Shoulder ROM: R/L -flexion 156 painful arc 80- 110/160 -abduction 148 painful arc 80- 110/162 Functional Test Performed & Score NDI: 9, 18% Assessment Assessment/Impression Patient is a 73 year old female presenting to physical therapy for evaluation and treatment of neck pain with C6 radiculopathy. Patient presents with limited cervical ROM, poor postural positioning, limited R UE ROM and pain in C6 distribution, DNF and periscapular weakness with possible continued underlying RC pathology. These impairments are limiting the patients ability to drive, sleep, perform job related tasks such as lifting, pushing , pulling. Patient appears motivated to participate in PT and presents with good prognosis to improve mobility, strength, proprioception and return to functional activities with skilled physical therapy intervention. Primary Functional Limitations drive, sleep, perform job related tasks such as lifting, pushing, pulling Plan of Care Rehabilitation Potential Good Physical Therapy Goals In 6 weeks (01/10/24) Pt will be able to look in all directions in order to perform ADLs and safe driving without pain. Pt will demonstrate improved sitting posture without cueing in consecutive sessions in order to decrease strain on neck and shoulder Pt will report 25-50% improvement in radicular symptoms in order to demonstrate functional improvement In 10 weeks (02/07/24) Pt will report 50-75% improvement in radicular symptoms in order to demonstrate functional improvement Pt will exhibit 10% improvement (or 5 points) in NDI Outcome measure to demonstrate functional improvement and progress towards goals. Pt will be able to maintain DNF chin tuck + lift for 30 seconds with minimal accessory muscle compensation in order to demonstrate increased DNF strength. Pt will demonstrate cervical rotation at least 60 degrees in order to perform ADLs and drive without pain Treatment Plan/Direct Interventions Ice/Cold/Vasopneumatic,Joint Mobilization,Manual Therapy, Neuromuscular Re-ed,Self-Care/ Home Management,Therapeutic Activities,Therapeutic Exercises Frequency/Duration 1x/wk for 6 weeks with additional 2-4 sessions prn based on progress Patient Will Be Discharged From Therapy Completion of LTG(s), Independent w/HEP, Independently Progressing Evaluation Billing Untimed Code Treatment Minutes 22 Complexity Low Certification Information Initial Certification Date 11/29/23 Ending Certification Date 02/23/24 Provider Signature Shows Agreement With POC & Medical Necessity Physician Signature & Date Requested Please Sign/Date Here Physician Comment/Change : Physician NPI Number #
== END 2024-01-05 17:00 | disposition home or self-care (01) ==
PROVIDERS: PCP Family Medicine; Visit Provider Family Medicine
DX: M54.12 Radiculopathy, cervical region (principal); Z51.89 Encounter for other specified aftercare
CPT/HCPCS: 97110; 97140; 97161

== ENCOUNTER 2024-03-01 07:10 | Outpatient (CLI) | payer MEDICARE, SELFPAY ==
--- OUTSIDE RECORDS SUMMARY | 2024-03-01 07:12 | XMS_ITS | Referral Summary ---
Author Organization [facility] Address [address] [place] [address] Care Team Providers Care Industrial Hygiene Manager Name Role Phone Unavailable Primary Care Provider Unavailabl e Source Comments Patient records contain information from all sites at [facility]. For routine questions regarding patient records, call [phone] during business hours, M-F 8:00 AM - 5:00 PM Central Time. Record requests for emergency care only can be directed to [phone] at any time.[facility] Allergies No known active allergies Immunizations [...] Friends and Family Patient declined 02/19/2019 Attends Church Services Patient declined 01/29 Active Member of Clubs or Organizations Patient declined 02/19/2019 Attends Club or Organization Meetings Patient de clined 02/19/2019 Marital Status 02/19/2019 AUDIT-C Answer Date Recorded Frequency of Alcohol Consumption 2-3 times a wee k 02/19/2019 Average Number of Drinks 3 or 4 019 Frequency of Binge Drinking Never 01/29 [place] of Occupat ional Health - Occupational Stress [...] Comments Blood Pressure 110/60 08/28/2013 3:02 PM SUPERVISOR IN CHARGE Pulse 72 08/28/2013 3:02 PM SUPERVISOR IN CHARGE Temperature - - Respiratory Rate 18 08/28/2013 3:02 PM SUPERVISOR IN CHARGE Oxygen Saturation - - Inhaled Oxygen Concentration - - Weight 72.9 kg (160 lb 11.5 oz) 08/28/2013 3:02 PM SUPERVISOR IN CHARGE Height 160 cm (5' 2.99) 07/18/2013 7:54 AM SUPERVISOR IN CHARGE Body Mass Index 28.48 07/18/2013 7:54 AM SUPERVISOR IN CHARGE Plan of Treatment Not on file Procedures Procedure Name Priority Date/Time Associated Diagnosis Comments BI BREAST SCREENING BILATERAL WITH TOMOSYNTHESIS RAD - Routine (most inpatients and all outpatients) 07/22/2022 2:42 PM SUPERVISOR IN CHARGE Screening Mammogram Breast Cancer GLUCOSE, FASTING, S/P Routine 07/18/2013 9:11 AM SUPERVISOR IN CHARGE from Last 3 Months or Most Recently Relevant to Health Maintenance Results * BI Breast Screening Bilateral with Tomosynthesis (07/22/2022 2:42 PM SUPERVISOR IN CHARGE) Anatomical Region Laterality Modality Breast, Breast Imaging RST L OS, Breast Imaging ARZ LOS, Breast Imaging FLA LOS Bilateral Mammography 07/23/2022 8:56 AM SUPERVISOR IN CHARGE Impressions 07/23/2022 8:59 AM SUPERVISOR IN CHARGE Negative. RECOMMENDATION: ??Annual Screening Mammogram ASSESSMENT: ??BI-RADS: 1: Negative. Narrative 07/23/2022 8:59 AM SUPERVISOR IN CHARGE EXAM: ??BI BREAST SCREENING BILATERAL WITH TOMOSYNTHESIS Current study was evaluated with a Computer Aided Detection (CAD) system. INDICATION: ??Screening mammogram. COMPARISON: ??Prior exam(s) were available and reviewed for comparison. DENSITY: ??b. There are scattered areas of fibroglandular density. FINDINGS: ??No mammographic findings of malignancy. Procedure Note Saul Costa M.D. - 07/23/2022 EXAM: BI BREAST SCREENING BILATERAL WITH TOMOSYNTHESIS Current study was evaluated with a Computer Aided Detection (CAD) system. INDICATION: Screening mammogram. COMPARISON: Prior exam(s) were available and reviewed for comparison. DENSITY: b. There are scattered areas of fibroglandular density. FINDINGS: No mammographic findings of malignancy. IMPRESSION: Negative. RECOMMENDATION: Annual Screening Mammogram ASSESSMENT: BI-RADS: 1: Negative. Anat Berumen M.D. IMG BI PROCEDURES * Glucose, Fasting (07/18/2013 9:11 AM SUPERVISOR IN CHARGE) Glucose, Fasting, S 93 70 - 99 MGDL POWERCHART Blood 07/18/2013 9:11 AM SUPERVISOR IN CHARGE Madonna Sanchez M.D. LAB BLOOD NON ADD-ON POWERCHART from Last 3 Months or Most Recently Relevant to Health Maintenance
--- OUTSIDE RECORDS SUMMARY | 2024-03-01 07:12 | XMS_ITS | Encounter Summary ---
Author Organization [facility] Address [address] [place] [address] Care Team Providers Care Strategic Planning Manager Name Role Phone HuseyinRamosChattanooga Primary Care Provider Unavaila ble Encounter Details Date Type Department Care Team (Late st Contact Info) Description 06/14/2008 [facility] in [facility] [address] [place] [phone] Linnea Rutherford [address] [place] [phone] Social History Tobacco Use Types Packs/Day Years [...] on filedocumented in this encounter Care Teams Strategic Planning Manager Relationship Specialty Start Date End Date Edie FontanezChattanooga PCP - General 12/31/05 documented as of this encounter
--- OUTSIDE RECORDS SUMMARY | 2024-03-01 07:12 | XMS_ITS | Clinical Summary ---
Author Organization [facility] Address [address] [place] [address] Care Team Providers Care Access Lead Name Role Phone Huseyin[place]amos[place] Primary Care Provider Unavaila ble Allergies No known active allergies Medications Medication Sig Dispensed Refills Start Date End Date Status alendronate (FOSAMAX) 70 MG tablet Take 70 mg by mouth every 7 days 07/09/2015 Active simvastatin (ZOCOR) 10 MG tablet 07/24/2016 Active cholecalciferol (VITAMIN D) 1000 UNIT tablet 10/14/2016 Active Active Problems Problem Noted Date [...] Comments Blood Pressure 136/83 09/01/2019 9:42 AM HOSPITAL PHARMACY DIRECTOR Pulse 71 09/01/2019 9:42 AM HOSPITAL PHARMACY DIRECTOR Temperature 36.6 ??C (97.9 ??F) 09/01/2019 9:42 AM CS T Respiratory Rate 16 09/01/2019 9:42 AM HOSPITAL PHARMACY DIRECTOR Oxygen Saturation 98% 03/16/2019 10:00 AM CDT Inhaled Oxygen Concentration - - Weight 74.4 kg (164 lb) 09/01/2019 9:42 AM HOSPITAL PHARMACY DIRECTOR Height 158.8 cm (5' 2.5) 03/16/2019 10:00 AM CD T Body Mass Index 29.52 03/16/2019 10:00 AM CDT Plan of Treatment Not on file Care Teams Access Lead Relationship Specialty Start Date End Date Ramos Fontanez PCP - General 12/31/05
--- OUTSIDE RECORDS SUMMARY | 2024-03-01 07:12 | XMS_ITS | Clinical Summary ---
Author Organization [facility] Address [address] [place] [address] Care Team Providers Care Workers Compensation Analyst Name Role Phone Unavailable Primary Care Provider Unavailabl e Source Comments Patient records contain information from all sites at [facility]. For routine questions regarding patient records, call [phone] during business hours, M-F 8:00 AM - 5:00 PM Central Time. Record requests for emergency care only can be directed to [phone] at any time.[facility] Allergies No known active allergies [...] Friends and Family Patient declined 02/19/2019 Attends Christianity Services Patient declined 01/29 Active Member of Clubs or Organizations Patient declined 02/19/2019 Attends Club or Organization Meetings Patient de clined 02/19/2019 Marital Status 02/19/2019 AUDIT-C Answer Date Recorded Frequency of Alcohol Consumption 2-3 times a wee k 02/19/2019 Average Number of Drinks 3 or 4 019 Frequency of Binge Drinking Never 01/29 [facility] [place] of Occupat ional Health - Occupational Stress [...] Comments Blood Pressure 110/60 08/28/2013 3:02 PM TIME CHECKER Pulse 72 08/28/2013 3:02 PM TIME CHECKER Temperature - - Respiratory Rate 18 08/28/2013 3:02 PM TIME CHECKER Oxygen Saturation - - Inhaled Oxygen Concentration - - Weight 72.9 kg (160 lb 11.5 oz) 08/28/2013 3:02 PM TIME CHECKER Height 160 cm (5' 2.99) 07/18/2013 7:54 AM TIME CHECKER Body Mass Index 28.48 07/18/2013 7:54 AM TIME CHECKER Plan of Treatment Health Maintenance Due Date Last Done Comments Bone Density Scan (Osteoporo sis Screen) 1950 CT Colonography 1950 Cologuard 1950 FIT 1950 Hepatitis C Screening 1950 Colonoscopy 12/17/2015 12/16/2005 Colorectal Cancer Screening 12/17/2015 Fasting Glucose for Diabetes Screening 07/18/2016 07/18/2013, 02/23/2012 COVID-19 Vaccine (4 - 2022-2 4 season) 2023 07/18/2021, 11/01/2020, 10/04/2020 DTaP,Tdap,and Td Vaccines (2 - Td or Tdap) 07/18/2023 07/18/2013, 07/18/2013 Mammogram 07/22/2023 07/22/2022, 06/30, 07/11/2020, Additional history exists Depression Screening (Annual PHQ-2) 08/30/2023 Fall Risk Screen (Annual) 08/30/2023 Influenza Vaccine (#1) 2024 3, 06/19/2022, 06/26/2020, Additional history exists Pneumococcal vaccine (65+ years) Completed 09/07/19 19, 09/16/2017 Zoster Vaccines Completed 09/15/2021, 1003/2021, 02/19/2015 Procedures Procedure Name Priority Date/Time Associated Diagnosis Comments BI BREAST SCREENING BILATERAL WITH TOMOSYNTHESIS RAD - Routine (most inpatients and all outpatients) 07/22/2022 2:42 PM TIME CHECKER Screening Mammogram Breast Cancer GLUCOSE, FASTING, S/P Routine 07/18/2013 9:11 AM TIME CHECKER from Last 3 Months or Most Recently Relevant to Health Maintenance Results * BI Breast Screening Bilateral with Tomosynthesis (07/22/2022 2:42 PM TIME CHECKER) Anatomical Region Laterality Modality Breast, Breast Imaging RST L OS, Breast Imaging ARZ LOS, Breast Imaging FLA LOS Bilateral Mammography 07/23/2022 8:56 AM TIME CHECKER Impressions 07/23/2022 8:59 AM TIME CHECKER Negative. RECOMMENDATION: ??Annual Screening Mammogram ASSESSMENT: ??BI-RADS: 1: Negative. Narrative 07/23/2022 8:59 AM TIME CHECKER EXAM: ??BI BREAST SCREENING BILATERAL WITH TOMOSYNTHESIS [...] PROCEDURES * Glucose, Fasting (07/18/2013 9:11 AM TIME CHECKER) Glucose, Fasting, S 93 70 - 99 MGDL POWERCHART Blood 07/18/2013 9:11 AM TIME CHECKER Madonna Sanchez M.D. LAB BLOOD NON ADD-ON POWERCHART from Last 3 Months or Most Recently Relevant to Health Maintenance
--- OUTSIDE RECORDS SUMMARY | 2024-03-01 07:12 | XMS_ITS ---
Author Organization [facility] Address [address] [place] [address] Care Team Providers Care Statistical Methods Teacher Name Role Phone Unavailable Unavailable Unavailable Surgery Details Not on file Complications Check Surgery Details section. Procedure Estimated Blood Loss Check Surgery Details section. Procedure Findings Check Surgery Details section. Procedure Specimens Taken Check Surgery Details section.
--- OUTSIDE RECORDS SUMMARY | 2024-03-01 07:12 | XMS_ITS | Continuity of Care Document ---
Author Organization [facility] Address [address] [address] [place] [address] Phone Care Team Providers Care Clinical Research Administrator Name Role Phone Unavailable Unavailable Unavailable Allergies, Adverse Reactions, Alerts Substance Reaction Status Criticality No Known Allergies Active No Inform ation Medications Medication Instructions Dosage Effective Dates (start - stop) Status Comments methimazole 10 mg tablet take 3 Tablet b y oral route every day 30 MG - Active simvastatin 10 mg tablet take 1 tablet b y oral route every day in the evening 10 MG - Active Vitamin D3 1,000 unit capsule take 1 Tablet by Oral route every day 1 Tablet - Active aspirin 81 mg chewable tablet chew 1 tablet by oral route every day 81 MG - Active Flonase Allergy Relief 50 mcg/actuation nasal spray,suspension spray 1 - 2 spray by intranasal route every day in each nostril as needed 50-100 MCG - Active MiralaxBisacodylMagCit Colon Prep Use as directed - No Longer Active Procedures Procedure Date Colonoscopy Flex; Dx (sep Pro) 16 Advance Directives Directive Yes / No Effective Date File Name No Information Encounters Encounter Description Practice Location Reason(s) For Visit Diagnoses Date Provider Providers Copied on Encounter [facility], [address] [address], [place], [id number], [place] tel:[phone] Mackenzie [facility] Diverticulosis of large intestine without hemorrhageColo n cancer screeningEncou nter for screening for malignant neoplasm of colonDvrtclos of lg int w/o perforation or abscess w/o bleeding No Information Referring Provider: Referral Self, USE FOR SELF REFERRALS. [facility], [address] [address], [place], [place], [id number], [place] tel:[phone] [facility] No Information Link MD Wang. [address] [place] [facility], [address], [place], [place], [id number], [place]. tel:[phone] Referring Provider: Referral Self, USE FOR SELF REFERRALS. Family History Family Member Type Diagnosis Age At Onset Mother Problem (finding) Son Problem (finding) Alive and well Brother Problem (finding) Alive and well Sister Problem (finding) Alive and well Father Problem (finding) Payers Payer name Insurance type Covered libertarian ID Jen reyes(s) [id number] Social History Type Description Quantity Date Captured Comments Alcohol Use Details Unknown Caffeine Use Details Unknown Tobacco Use Status No Information Smoking Status Never smoker Sex Female Vital Signs Date / Time: Height Weight BMI Pulse Rate Blood Pressure Temperature Respiratory Rate Body Surface Area Head Circumference Head Circ. Percentile Wt./Valentino. Percentile BMI percentile Pulse Ox Inhaled Ox 64.00 in 65.310 kg (144.00 lbs) 24.7 0 kg/m eter (2) 81 /min 154/72 mm[Hg] 0.00 F 16 /min 99 % Chief Complaint And Reason For Visit No Information Reason For Referral Reason For Referral No Information History Of Present Illness Encounter Date Complaint History Of Prese nt Illness No Information Functional Status Date Functional Assessmen t No Information Instructions Date Instruction Additional Infor mation No Information Assessments Type Assessment Date assessment Diverticulosis of large intestin e without hemorrhage Patient Care Teams Name Effective Dates (start - stop) Status Members No Information
--- OUTSIDE RECORDS SUMMARY | 2024-03-01 07:12 | XMS_ITS | Referral Summary ---
Author Organization [facility] Address [address] [place] [address] Care Team Providers Care Gray Tender Name Role Phone HuseyinRamosFairbank Primary Care Provider Unavaila ble Allergies No [...] Comments Blood Pressure 136/83 09/01/2019 9:42 AM CHILD DEVELOPMENT ASSOCIATE TEACHER Pulse 71 09/01/2019 9:42 AM CHILD DEVELOPMENT ASSOCIATE TEACHER Temperature 36.6 ??C (97.9 ??F) 09/01/2019 9:42 AM CS T Respiratory Rate 16 09/01/2019 9:42 AM CHILD DEVELOPMENT ASSOCIATE TEACHER Oxygen Saturation 98% 03/16/2019 10:00 AM CDT Inhaled Oxygen Concentration - - Weight 74.4 kg (164 lb) 09/01/2019 9:42 AM CHILD DEVELOPMENT ASSOCIATE TEACHER Height 158.8 cm (5' 2.5) 03/16/2019 10:00 AM CD T Body Mass Index 29.52 03/16/2019 10:00 AM CDT Plan of Treatment Not on file Care Teams Gray Tender Relationship Specialty Start Date End Date Ramos Fontanez PCP - General 12/31/05
--- OUTSIDE RECORDS SUMMARY | 2024-03-01 07:12 | XMS_ITS | Encounter Summary ---
Author Organization [facility] Address [address] [place] [address] Care Team Providers Care Strip Winder Name Role Phone HuseyinRamosBella Vista Primary Care Provider Unavaila ble Encounter Details Date Type Department Care Team (Late st Contact Info) Description 06/23/2008 [facility] in [facility] [address] [place] [phone] Linnea Rutherford [address] [place] [phone] Social History Tobacco Use Types Packs/Day Years [...] on filedocumented in this encounter Care Teams Strip Winder Relationship Specialty Start Date End Date Edie FontanezBella Vista PCP - General 12/31/05 documented as of this encounter
== END 2024-03-01 07:11 | disposition home or self-care (01) ==
LOC: NFLDREF 07:10
PROVIDERS: PCP Family Medicine; Visit Provider Family Medicine
DX: R39.9 Unspecified symptoms and signs involving the genitourinary system (principal); N30.00 Acute cystitis without hematuria
CPT/HCPCS: 87086; 87186

== ENCOUNTER 2024-04-20 10:03 | Outpatient (CLI) | payer MEDICARE, SELFPAY ==
--- OUTSIDE RECORDS SUMMARY | 2024-04-20 10:06 | XMS_ITS | Referral Summary ---
Author Organization [facility] Address [address] [place] [address] Care Team Providers Care Pastry Artist Name Role Phone Unavailable Primary Care Provider Unavailabl e Source Comments Patient records contain information from all sites at [facility]. For routine questions regarding patient records, call [phone] during business hours, M-F 8:00 AM - 5:00 PM Central Time. Record requests for emergency care only can be directed to [phone] at any time.[facility] Allergies No known active allergies Immunizations [...] Friends and Family Patient declined 02/19/2019 Attends Jain Services Patient declined 01/29 Active Member of Clubs or Organizations Patient declined 02/19/2019 Attends Club or Organization Meetings Patient de clined 02/19/2019 Marital Status 02/19/2019 AUDIT-C Answer Date Recorded Frequency of Alcohol Consumption 2-3 times a wee k 02/19/2019 Average Number of Drinks 3 or 4 019 Frequency of Binge Drinking Never 01/29 [employer] [facility] [place] of Occupat ional Health - Occupational Stress [...] Comments Blood Pressure 110/60 08/28/2013 3:02 PM EPIC AMBULATORY ANALYST Pulse 72 08/28/2013 3:02 PM EPIC AMBULATORY ANALYST Temperature - - Respiratory Rate 18 08/28/2013 3:02 PM EPIC AMBULATORY ANALYST Oxygen Saturation - - Inhaled Oxygen Concentration - - Weight 72.9 kg (160 lb 11.5 oz) 08/28/2013 3:02 PM EPIC AMBULATORY ANALYST Height 160 cm (5' 2.99) 07/18/2013 7:54 AM EPIC AMBULATORY ANALYST Body Mass Index 28.48 07/18/2013 7:54 AM EPIC AMBULATORY ANALYST Plan of Treatment Not on file Procedures Procedure Name Priority Date/Time Associated Diagnosis Comments BI BREAST SCREENING BILATERAL WITH TOMOSYNTHESIS RAD - Routine (most inpatients and all outpatients) 07/22/2022 2:42 PM EPIC AMBULATORY ANALYST Screening Mammogram Breast Cancer GLUCOSE, FASTING, S/P Routine 07/18/2013 9:11 AM EPIC AMBULATORY ANALYST from Last 3 Months or Most Recently Relevant to Health Maintenance Results * BI Breast Screening Bilateral with Tomosynthesis (07/22/2022 2:42 PM EPIC AMBULATORY ANALYST) Anatomical Region Laterality Modality Breast, Breast Imaging RST L OS, Breast Imaging ARZ LOS, Breast Imaging FLA LOS Bilateral Mammography 07/23/2022 8:56 AM EPIC AMBULATORY ANALYST Impressions 07/23/2022 8:59 AM EPIC AMBULATORY ANALYST Negative. RECOMMENDATION: ??Annual Screening Mammogram ASSESSMENT: ??BI-RADS: 1: Negative. Narrative 07/23/2022 8:59 AM EPIC AMBULATORY ANALYST EXAM: ??BI BREAST SCREENING BILATERAL WITH TOMOSYNTHESIS [...] PROCEDURES * Glucose, Fasting (07/18/2013 9:11 AM EPIC AMBULATORY ANALYST) Glucose, Fasting, S 93 70 - 99 MGDL POWERCHART Blood 07/18/2013 9:11 AM EPIC AMBULATORY ANALYST Madonna Sanchez M.D. LAB BLOOD NON ADD-ON POWERCHART from Last 3 Months or Most Recently Relevant to Health Maintenance
--- OUTSIDE RECORDS SUMMARY | 2024-04-20 10:06 | XMS_ITS | Encounter Summary ---
Author Organization [facility] Address [address] [place] [address] Care Team Providers Care Life Skills Educator Name Role Phone HuseyinRamosBlairsburg Primary Care Provider Unavaila ble Encounter Details Date Type Department Care Team (Late st Contact Info) Description 06/14/2008 [facility] in [facility] [address] [place] [phone] Linnea Rutherford [address] [place] [phone] Social History Tobacco Use Types Packs/Day Years [...] on filedocumented in this encounter Care Teams Life Skills Educator Relationship Specialty Start Date End Date Edie FontanezBlairsburg PCP - General 12/31/05 documented as of this encounter
--- OUTSIDE RECORDS SUMMARY | 2024-04-20 10:06 | XMS_ITS | Referral Summary ---
Author Organization [facility] Address [address] [place] [address] Care Team Providers Care Electrician Deck Name Role Phone HuseyinRamosTacoma Primary Care Provider Unavaila ble Allergies No [...] Comments Blood Pressure 136/83 09/01/2019 9:42 AM COLLECTION SPECIALIST Pulse 71 09/01/2019 9:42 AM COLLECTION SPECIALIST Temperature 36.6 ??C (97.9 ??F) 09/01/2019 9:42 AM CS T Respiratory Rate 16 09/01/2019 9:42 AM COLLECTION SPECIALIST Oxygen Saturation 98% 03/16/2019 10:00 AM CDT Inhaled Oxygen Concentration - - Weight 74.4 kg (164 lb) 09/01/2019 9:42 AM COLLECTION SPECIALIST Height 158.8 cm (5' 2.5) 03/16/2019 10:00 AM CD T Body Mass Index 29.52 03/16/2019 10:00 AM CDT Plan of Treatment Not on file Care Teams Electrician Deck Relationship Specialty Start Date End Date Ramos Fontanez PCP - General 12/31/05
--- OUTSIDE RECORDS SUMMARY | 2024-04-20 10:06 | XMS_ITS ---
Author Organization [facility] Address [address] [place] [address] Care Team Providers Care School Bus Driver/Mechanic Name Role Phone Unavailable Unavailable Unavailable Surgery Details Not on file Complications Check Surgery Details section. Procedure Estimated Blood Loss Check Surgery Details section. Procedure Findings Check Surgery Details section. Procedure Specimens Taken Check Surgery Details section.
--- OUTSIDE RECORDS SUMMARY | 2024-04-20 10:06 | XMS_ITS | Clinical Summary ---
Author Organization [facility] Address [address] [place] [address] Care Team Providers Care Directional Drill Operator Name Role Phone HuseyinRamosLitch[place] Primary Care Provider Unavaila ble Allergies No [...] Comments Blood Pressure 136/83 09/01/2019 9:42 AM PLAYGROUND WORKER Pulse 71 09/01/2019 9:42 AM PLAYGROUND WORKER Temperature 36.6 ??C (97.9 ??F) 09/01/2019 9:42 AM CS T Respiratory Rate 16 09/01/2019 9:42 AM PLAYGROUND WORKER Oxygen Saturation 98% 03/16/2019 10:00 AM CDT Inhaled Oxygen Concentration - - Weight 74.4 kg (164 lb) 09/01/2019 9:42 AM PLAYGROUND WORKER Height 158.8 cm (5' 2.5) 03/16/2019 10:00 AM CD T Body Mass Index 29.52 03/16/2019 10:00 AM CDT Plan of Treatment Not on file Care Teams Directional Drill Operator Relationship Specialty Start Date End Date Ramos Fontanez PCP - General 12/31/05
--- OUTSIDE RECORDS SUMMARY | 2024-04-20 10:06 | XMS_ITS | Clinical Summary ---
Author Organization [facility] Address [address] [place] [address] Care Team Providers Care Observation Assistant Name Role Phone Unavailable Primary Care Provider Unavailabl e Source Comments Patient records contain information from all sites at [facility]. For routine questions regarding patient records, call [phone] during business hours, M-F 8:00 AM - 5:00 PM Central Time. Record requests for emergency care only can be directed to [phone] at any time.[facility] Allergies No known active allergies Immunizations [...] Friends and Family Patient declined 02/19/2019 Attends Hindu Services Patient declined 01/29 Active Member of Clubs or Organizations Patient declined 02/19/2019 Attends Club or Organization Meetings Patient de clined 02/19/2019 Marital Status 02/19/2019 AUDIT-C Answer Date Recorded Frequency of Alcohol Consumption 2-3 times a wee k 02/19/2019 Average Number of Drinks 3 or 4 019 Frequency of Binge Drinking Never 01/29 [facility] [place] of Occupat ional Health - Occupational Stress [...] Comments Blood Pressure 110/60 08/28/2013 3:02 PM LINER MACHINE OPERATOR Pulse 72 08/28/2013 3:02 PM LINER MACHINE OPERATOR Temperature - - Respiratory Rate 18 08/28/2013 3:02 PM LINER MACHINE OPERATOR Oxygen Saturation - - Inhaled Oxygen Concentration - - Weight 72.9 kg (160 lb 11.5 oz) 08/28/2013 3:02 PM LINER MACHINE OPERATOR Height 160 cm (5' 2.99) 07/18/2013 7:54 AM LINER MACHINE OPERATOR Body Mass Index 28.48 07/18/2013 7:54 AM LINER MACHINE OPERATOR Plan of Treatment Health Maintenance Due Date [...] 09/07/19 19, 09/16/2017 Zoster Vaccines Completed 09/15/2021, 10/0 03/2021, 02/19/2015 Procedures Procedure Name Priority Date/Time Associated Diagnosis Comments BI BREAST SCREENING BILATERAL WITH TOMOSYNTHESIS RAD - Routine (most inpatients and all outpatients) 07/22/2022 2:42 PM LINER MACHINE OPERATOR Screening Mammogram Breast Cancer GLUCOSE, FASTING, S/P Routine 07/18/2013 9:11 AM LINER MACHINE OPERATOR from Last 3 Months or Most Recently Relevant to Health Maintenance Results * BI Breast Screening Bilateral with Tomosynthesis (07/22/2022 2:42 PM LINER MACHINE OPERATOR) Anatomical Region Laterality Modality Breast, Breast Imaging RST L OS, Breast Imaging ARZ LOS, Breast Imaging FLA LOS Bilateral Mammography 07/23/2022 8:56 AM LINER MACHINE OPERATOR Impressions 07/23/2022 8:59 AM LINER MACHINE OPERATOR Negative. RECOMMENDATION: ??Annual Screening Mammogram ASSESSMENT: ??BI-RADS: 1: Negative. Narrative 07/23/2022 8:59 AM LINER MACHINE OPERATOR EXAM: ??BI BREAST SCREENING BILATERAL WITH TOMOSYNTHESIS [...] PROCEDURES * Glucose, Fasting (07/18/2013 9:11 AM LINER MACHINE OPERATOR) Glucose, Fasting, S 93 70 - 99 MGDL POWERCHART Blood 07/18/2013 9:11 AM LINER MACHINE OPERATOR Madonna Sanchez M.D. LAB BLOOD NON ADD-ON POWERCHART from Last 3 Months or Most Recently Relevant to Health Maintenance
--- OUTSIDE RECORDS SUMMARY | 2024-04-20 10:06 | XMS_ITS | Encounter Summary ---
Author Organization [facility] Address [address] [place] [address] Care Team Providers Care E Commerce Merchant Name Role Phone HuseyinRamosEaston Primary Care Provider Unavaila ble Encounter Details Date Type Department Care Team (Late st Contact Info) Description 06/23/2008 [facility] [address] [place] [phone] Linnea Rutherford [address] [place] [phone] Social History Tobacco Use Types Packs/Day Years [...] on filedocumented in this encounter Care Teams E Commerce Merchant Relationship Specialty Start Date End Date Edie FontanezEaston PCP - General 12/31/05 documented as of this encounter
--- NOTE | 2024-04-20 10:15 | MR_ITS ---
[facility] [address] [facility] [address] Phone:?[phone] Fax:?[phone] Referring Physician Information: Emerson Greenwood M.D. [address] [facility] [address] Phone:?[phone] Fax:?[phone] Patient:Laney Ferguson D.O.B:?1950 Sex:?Female Phone:?[phone] [facility] MRN:?[id number] Exam Date:?04/20/2024 EXAM: MRI of the RIGHT SHOULDER, without contrast CLINICAL: Female, 73 years old, with right shoulder pain. INDICATION: Evaluate rotator cuff for tear. PRIOR SURGERY: None reported. PLAIN FILMS: 04/11/2024 radiographic series of the right shoulder. COMPARISONS: No prior MRIs available. TECHNICAL: Using a 1.5T MR scanner and a localizing shoulder surface coil: 3.0 mm?coronal obliques: PD, T2, STIR 3.0 mm?sagittal obliques: PD, T2 3.0 mm?axials: PD, T2 SEDATION: None. CONTRAST: None. IMPRESSION: 1. 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 2. Also abnormal tendinosis/attenuation of the subscapularis tendon without full-thickness tear but with moderate muscle atrophy. 3. Intermediate approaching late stage biceps jessica lesion with biceps tendinopathy. 4. Early rotator cuff arthropathy predominantly consisting of localized chondral thinning of the superior glenoid rim as well as an element of spherical sculpting of the undersurface of the acromion. 5. Marked inferior degenerative hypertrophy of the acromioclavicular joint contributes encroachment upon the subacromial space. FINDINGS: Glenohumeral joint: Effusion/cyst: Small] glenohumeral joint effusion. Ganglion cyst: None. Articular cartilage: Humeral head: Intact. Glenoid: Localized chondral thinning of the superior glenoid rim without subjacent marrow edema. Loose bodies: None demonstrable. Inferior glenohumeral ligament/axillary recess: Unremarkable. Labrum: Chronic attenuation of the superior labrum without defined linear tear. The anterior and posterior labrum appear intact. Bones: Proximal humerus: Mild chronic hyperostosis of the greater tuberosity and humeral sulcus underlies chronic full-thickness rotator cuff tear detailed below. The proximal humerus otherwise intact and unremarkable. No humeral Hill-Sachs or reverse Hill-Sachs lesion. Glenoid: Intact. No osseous Bankart lesion. Coracoacromial arch: Acromion morphology: Pronounced type II acromion with suspected chronic spherical sculpting of inferior surface as may reflect chronic residua of chronic proximal migration of the humeral head associated with rotator cuff tear and rotator cuff arthropathy. Os acromiale: None. Acromiohumeral space: Severely narrowed at a minimum of 1 mm predominantly secondary to proximal migration of the humeral head associated with the very large chronic full-thickness rotator cuff tear detailed below. Coracohumeral space: Within normal limits. Acromioclavicular joint: Joint: Marked chronic degenerative hypertrophy of the acromioclavicular joint contributes marked encroachment upon the subacromial space (coronal PD series 5, images 14-12; sagittal PDFS series 7, images 12 & 13). Ligaments: Intact coracoclavicular ligaments. Bursae: Subacromial-subdeltoid: Fluid in the subacromial space reflects accumulation associated with the full-thickness rotator cuff tear discussed below. Subcoracoid: Unremarkable. Rotator cuff and muscles/tendons: Supraspinatus: Chronic full-thickness full-width supraspinatus and infraspinatus tendon tears with marked 5 cm of proximal tendon retraction to the level of the glenohumeral joint and severe Goutallier stage 3- 4 fatty infiltration (coronal images 9-15). Infraspinatus: Full-thickness tear extends into most of the infraspinatus tendon although there is an attenuated portion of its posterior aspect which does remain intact. Moderate decreased muscle bulk and pronounced Goutallier stage 3 fatty infiltration. Teres minor: Unremarkable. Subscapularis: Tendinosis and some deep surface attenuation of the subscapularis tendon is not associated with full-thickness tear. Associated moderate decreased superior supraspinatus and infraspinatus muscle bulk and pronounced Goutallier stage 2 fatty infiltration. Deltoid: Unremarkable. Biceps tendon, long head: Although the long head of biceps tendon is intact, rather prominent medial subluxation from the bicipital sulcus superficial to the lesser tuberosity is accompanied by moderate towards marked tendinopathy with some thickening and then also some abnormal attenuation, without full-thickness tear or complete dislocation at this time (axial images 24-11). Axilla: None. HMF Electronically signed on 04/20/2024 5:45:00 PM by Ismael Kelley M.D.
== END 2024-04-20 10:04 | disposition home or self-care (01) ==
LOC: MRI 10:04
PROVIDERS: PCP Family Medicine; Visit Provider Orthopaedic Surgery Sports Medicine
DX: M25.511 Pain in right shoulder (principal); M75.101 Unspecified rotator cuff tear or rupture of right shoulder, not specified as traumatic
CPT/HCPCS: 73221

== ENCOUNTER 2024-04-25 10:32 | Emergency (ER) | payer MEDICARE, SELFPAY ==
[2024-04-25 10:37] VITALS: BP 145/84; PULSE 96; RESP 16; TEMP 36.6; O2SAT 98; BMI 28.9
--- NOTE | 2024-04-25 10:50 | ED_ITS ---
HPI - General Adult General Chief complaint: Back Injury/Pain Stated complaint: Back and foot pain Time Seen by Provider: 04/25/24 10:35 History of Present Illness HPI narrative: Lower back pain since beginning of March, worse on the right. Fell on her right hip in December. Has been seeing Dr. Cook at spine clinic with minimal improvement. Patient has been icing, last night took a leftover muscle relaxer without relief. Patient notes she is now having pain in buttocks, lateral legs ( felix aterally). She also notes her left foot has been quite swollen, she stubbed her toe around the same time her back started ( has had negative xray per patient). 73-year-old woman presenting to the emergency department with worsening low back pain now radiating into the buttocks. Had a fall onto her hip in December and has had increasing low back pain. Did not really have radicular symptoms beyond her low back. Does have cervical spine problems treated back in November. Took a leftover cyclobenzaprine this morning with increased pain. Pain is escalated across the low back seems to radiate somewhat into her buttocks but in particular over the lateral hips down her legs. Incidentally has also noticed now that her left foot is more swollen. In the 1st week of March while on vacation sounds as though stubbed the left 2nd toe. Think she had an insect bite in the same vicinity around the same time. Has been favoring on ambulation now. 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 She is having more pain in the right hip area particularly painful to roll over onto that side at night. Is having trouble sleeping due to this. No fever. No wound/drainage. Reviewing recent clinic notes was seen 5 days ago. Noted to have osteoarthritic changes on imaging along with discogenic disease. Discussion of upper level imaging was done at that time. The left toe is more swollen as well as swelling into her distal foot since that time. Did receive x-rays of the left 2nd toe at that time as well at the same time showing osteoarthritic changes but no fractures. Related Data Home Medications ?Medication ?Instructions ?Recorded ?Confirmed [id number]-tyh-odzw 18 mg-FA 400 1 tab PO DAILY 06/01/23 04/25/24 mcg-calcium 500 mg-vit K 50 mcg tablet (Women's Multivitamin) gabapentin 100 mg capsule 200 mg PO QHS 04/25/24 04/25/24 Previous Rx's ?Medication ?Instructions ?Recorded rosuvastatin 5 mg tablet 5 mg PO QDAY #90 tabs 03/01/24 ibuprofen 800 mg tablet 800 mg PO TID #30 tabs 04/13/24 hydrocodone 5 mg-acetaminophen 325 1 - 2 tab PO Q4-6H PRN pain #8 tabs 04/25/24 mg tablet prednisone 20 mg tablet 40 mg (2 x 20 mg) PO DAILY 5 days 04/25/24 #10 tabs Allergies Allergy/AdvReac Type Severity Reaction Status Date / Time alendronate sodium Allergy Mild Verified 04/25/24 10:42 [From Fosamax] Review of Systems Status of ROS: Reports: 6 or more systems reviewed and unremarkable except as noted in History and below [facility] Medical History Osteoarthritis of right patellofemoral joint (11/2020) ?M17.11 - Unilateral primary osteoarthritis, right knee (ICD-10) Cognitive change (05/22/21) ?R41.89 - Other symptoms and signs involving cognitive functions and awareness (ICD-10) Hyperthyroidism (07/2015) ?E05.90 - Thyrotoxicosis, unspecified without thyrotoxic crisis or storm (ICD-10) History of vitamin D deficiency ?Z86.39 - Personal history of other endocrine, nutritional and metabolic disease (ICD-10) GERD (gastroesophageal reflux disease) ?K21.9 - Gastro-esophageal reflux disease without esophagitis (ICD-10) Dyslipidemia ?E78.5 - Hyperlipidemia, unspecified (ICD-10) Antibiotic-associated diarrhea ?K52.1 - Toxic gastroenteritis and colitis (ICD-10) ?T36.95XA - Adverse effect of unspecified systemic antibiotic, initial encounter (ICD-10) Surgical History Status post tonsillectomy and adenoidectomy ?Z90.89 - Acquired absence of other organs (ICD-10) History of tubal ligation ?Z98.51 - Tubal ligation status (ICD-10) History of endoscopy (05/30/20) ?Z98.890 - Other specified postprocedural states (ICD-10) Family History Father Coronary artery disease, Onset Age: 50 Hx of CABG, Onset Age: 50 Son High blood pressure Cardiomyopathy Maternal Grandfather Lupus erythematosus Social History Narrative: -[place]. 3 adult children. 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 Nonsmoker (quit age 27; 15 pack years). Regular exercise (walks >10,000 steps daily & weights). Smoking Status: Former smoker What tobacco products do you use: cigarettes Smoking quit date/years: >15 years ago Do you use any of these nicotine containing products: None Second hand tobacco smoke exposure: No How often do you have a drink containing alcohol: 2-3 times a week AUDIT-C Alcohol total score: 3 Non-prescribed substance use: denies use Little interest or pleasure in doing things: not at all Feeling down, depressed, or hopeless: not at all Exam Narrative: Exam Narrative: Very pleasant. Uncomfortable appearing in transitions. Skin is warm, dry. Has pain to palpation across the low back right greater than left sacroiliac joints. Negative straight leg raise bilaterally. Not really positive with Sandra's. Is quite sore to palpation behind bilateral greater trochanters right greater than left. Is sore somewhat also down that lateral thighs but not at pes anserine bursa area. The left foot distally mildly warm faintly erythematous puffy. Moderately swollen and rather tender left 2nd toe as well. Faintly erythematous. Tender particularly on the plantar surface at the metatarsal heads and more so at this 2nd toe. Const: Vital Signs, click to edit/add: Vital Signs - 24 hr 04/25/24 10:37 Temperature 97.8 F Pulse Rate [Pulse Oximeter] 96 Respiratory Rate 16 Blood Pressure [Ri ght Upper Arm] 145/84 H Pulse Oximetry 98 Oxygen Delivery Me thod Room Air Documenting provider has reviewed patient's vital signs: yes Course Vital Signs Vital signs: Initial Vital Signs Temperature 97.8 F 04/25/24 10:37 Temperature Source Temporal Artery Scan 04/25/24 10:37 Pulse Rate 96 04/25/24 10:37 Respiratory Rate 16 04/25/24 10:37 Blood Pressure 145/84 H 04/25/24 10:37 Blood Pressure Mean 104 04/25/24 10:37 Blood Pressure Position Sitting 04/25/24 10:37 Pulse Oximetry 98 04/25/24 10:37 Oxygen Delivery Method Room Air 04/25/24 10:37 Vital Signs Temperature 97.8 F 04/25/24 10:37 Pulse Rate 96 04/25/24 10:37 Respiratory Rate 16 04/25/24 10:37 Blood Pressure 145/84 H 04/25/24 10:37 Pulse Oximetry 98 04/25/24 10:37 Oxygen Delivery Method Room Air 04/25/24 10:37 Temperature 97.8 F 04/25/24 10:37 Pulse Rate 96 04/25/24 10:37 Respiratory Rate 16 04/25/24 10:37 Blood Pressure 145/84 H 04/25/24 10:37 Pulse Oximetry 98 04/25/24 10:37 Oxygen Delivery Method Room Air 04/25/24 10:37 Medical Decision Making MDM Narrative Medical decision making narrative: Seems to have pain across the low back with focus in the sacroiliac joints. Pain also about the greater trochanters. I think iliotibial band irritation, may be evolving greater trochanteric bursitis as well. Differential in the foot includes capsulitis or fracture. Gout? However unusual location and has never had this before. Metatarsalgia? Does not appear to be cellulitis; appears to be inflammatory otherwise. Osteoarthritic inflammation? Repeating x-rays of the left 2nd toe does not reveal any acute abnormality other than soft tissue swelling. I did review these images. I am not convinced that the pain with which she is presenting here today represents radicular back pain. I think perhaps compensating for this left foot pain and has resulted in worse right hip and back area discomfort. Discussed with clinician who has seen her for her back. Anticipating close follow-up in his clinic. I would defer to his judgment as to when or if lumbar MRI per Ms. Winn concern, will be necessary. Meanwhile plan is to increase gabapentin. Initiate course of prednisone. nsaids. With further discussion though Ms. Samuels is particularly concerned given the degree of pain she has been experiencing overnight. We settled on having available a small quantity of [place] if really needed. Please see patient discharge plan for further discussion/recommendations. Dispensed postop sandal. Medical Records Medical records reviewed: Yes I reviewed the patient's medical records Discharge Plan Discharge Clinical Impression: Iliotibial band syndrome, Sacroiliac joint pain, Foot pain, left Patient Disposition: Home w/ Parent or Adult Condition: Stable Additional Instructions: Elevate your left foot for comfort. You seem to be experiencing some degree of capsulitis or metatarsalgia in your left foot. For now avoid walking on hard floors while barefoot or just wearing socks. I think you have had some underlying sacroiliac joint pain in your back. Your handout says greater trochanteric bursitis -- what I think your actual diagnosis here is more of an iliotibial band syndrome but these really exist in somewhat of a continuing. Either the sacral iliac joint pain or the iliotibial band syndrome/trochanteric bursitis would be/could be exacerbated by lower extremity problem like your foot. To make sure to wear good insoles like soft soled Birkenstock. Other good insoles but that do not include the metatarsal pad are Superfeet or SOLE brand. Hafflinger clogs/slippers would probably also be a good option and comfortable over the course of the school day. Consider wearing this postop sandal over the next week or 2. [address] a metatarsal pad (can usually purchase them [id number]) as discussed right behind the point on the sole of your foot where it most seems to hurt; could also stick on to the postop sandal. Or attach this to your usual flat insoles. Your requested some more pain medication for particularly for at night; prescribing a small quantity of [place] from [facility]. Member this can make you sleepy and also potentially constipated. Otherwise as discussed prednisone from [facility]. Increase gabapentin dosing to 300 mg twice a day. As discussed, consider taking 200-375 mg of naproxen twice daily. We have arranged to follow-up for you with Dr. Cook on . Follow up appointment is scheduled at the [facility] on 04/27 with a 12:20 appointment time. If you have any questions or need to reschedule, please call [phone]. Prescriptions: New prednisone 20 mg tablet 40 mg PO DAILY 5 Days Qty: 10 0RF hydrocodone-acetaminophen 5-325 mg tablet 1 - 2 tab PO Q4-6H PRN (Reason: pain) Qty: 8 0RF No Action ibuprofen 800 mg tablet 800 mg PO TID Qty: 30 0RF Hold Instructions: on hold per Joey. Taking 200mg gabapentin instead Women's Multivitamin 18 mg-400 mcg- 500 mg-50 mcg tablet 1 tab PO DAILY rosuvastatin 5 mg tablet 5 mg PO QDAY Qty: 90 0RF gabapentin 100 mg capsule 200 mg PO QHS Follow Up/Referrals: Diana Perkins MD [Primary Care Provider] - Stand Alone Forms: Clicks for a Cause Info Instructions
--- NOTE | 2024-04-25 11:30 | CRLHL7_ITS ---
For Patients: As a result of the Cures Act, medical imaging exams and procedure reports are released immediately into your electronic medical record. You may view this report before your referring provider. If you have questions, please contact your health care provider. INDICATION: Pain and swelling. COMPARISON: 04/20/2024 TECHNIQUE: Two views left 2nd toe. FINDINGS: Normal mineralization and alignment. No fracture. Nonspecific diffuse soft tissue swelling, similar to the prior study. IMPRESSION: Soft tissue swelling. Dictated by Kali Proctor MD @ 04/25/2024 12:07:53 PM (Electronically Signed)
== END 2024-04-25 13:26 | disposition home or self-care (01) ==
PROVIDERS: Emergency Provider Family Medicine; PCP Family Medicine
DX: M76.32 Iliotibial band syndrome, left leg (principal); M53.3 Sacrococcygeal disorders, not elsewhere classified
CPT/HCPCS: 73660; 99284

== ENCOUNTER 2024-05-09 14:12 | Outpatient (CLI) | payer MEDICARE, SELFPAY ==
--- OUTSIDE RECORDS SUMMARY | 2024-05-09 14:15 | XMS_ITS | Referral Summary ---
Author Organization [facility] Address [address] [place] [address] Care Team Providers Care Redevelopment Manager Name Role Phone Unavailable Primary Care Provider Unavailabl e Source Comments Patient records contain information from all sites at [facility]. For routine questions regarding patient records, call [phone] during business hours, M-F 8:00 AM - 5:00 PM Central Time. Record requests for emergency care only can be directed to [phone] at any time.[facility] Allergies No known active allergies Immunizations Name [...] Friends and Family Patient declined 02/19/2019 Attends Catholic Services Patient declined 01/29 Active Member of Clubs or Organizations Patient declined 02/19/2019 Attends Club or Organization Meetings Patient de clined 02/19/2019 Marital Status 02/19/2019 AUDIT-C Answer Date Recorded Frequency of Alcohol Consumption 2-3 times a wee k 02/19/2019 Average Number of Drinks 3 or 4 019 Frequency of Binge Drinking Never 01/29 [employer] [place] of Occupat ional Health - Occupational Stress [...] Comments Blood Pressure 110/60 08/28/2013 3:02 PM AUTO BODY REPAIRMAN Pulse 72 08/28/2013 3:02 PM AUTO BODY REPAIRMAN Temperature - - Respiratory Rate 18 08/28/2013 3:02 PM AUTO BODY REPAIRMAN Oxygen Saturation - - Inhaled Oxygen Concentration - - Weight 72.9 kg (160 lb 11.5 oz) 08/28/2013 3:02 PM AUTO BODY REPAIRMAN Height 160 cm (5' 2.99) 07/18/2013 7:54 AM AUTO BODY REPAIRMAN Body Mass Index 28.48 07/18/2013 7:54 AM AUTO BODY REPAIRMAN Plan of Treatment Not on file Procedures Procedure Name Priority Date/Time Associated Diagnosis Comments BI BREAST SCREENING BILATERAL WITH TOMOSYNTHESIS RAD - Routine (most inpatients and all outpatients) 07/22/2022 2:42 PM AUTO BODY REPAIRMAN Screening Mammogram Breast Cancer GLUCOSE, FASTING, S/P Routine 07/18/2013 9:11 AM AUTO BODY REPAIRMAN from Last 3 Months or Most Recently Relevant to Health Maintenance Results * BI Breast Screening Bilateral with Tomosynthesis (07/22/2022 2:42 PM AUTO BODY REPAIRMAN) Anatomical Region Laterality Modality Breast, Breast Imaging RST L OS, Breast Imaging ARZ LOS, Breast Imaging FLA LOS Bilateral Mammography 07/23/2022 8:56 AM AUTO BODY REPAIRMAN Impressions 07/23/2022 8:59 AM AUTO BODY REPAIRMAN Negative. RECOMMENDATION: ??Annual Screening Mammogram ASSESSMENT: ??BI-RADS: 1: Negative. Narrative 07/23/2022 8:59 AM AUTO BODY REPAIRMAN EXAM: ??BI BREAST SCREENING BILATERAL WITH TOMOSYNTHESIS [...] PROCEDURES * Glucose, Fasting (07/18/2013 9:11 AM AUTO BODY REPAIRMAN) Glucose, Fasting, S 93 70 - 99 MGDL POWERCHART Blood 07/18/2013 9:11 AM AUTO BODY REPAIRMAN Madonna Sanchez M.D. LAB BLOOD NON ADD-ON POWERCHART from Last 3 Months or Most Recently Relevant to Health Maintenance
--- OUTSIDE RECORDS SUMMARY | 2024-05-09 14:15 | XMS_ITS | Clinical Summary ---
Author Organization [facility] Address [address] [place] [address] Care Team Providers Care Hiv Counselor Name Role Phone HuseyinRamosUnalakleet Primary Care Provider Unavaila ble Allergies No [...] Administration Dates Next Due Influenza (High Dose) Trivalent,PF (Fluzone) 04/2019 Influenza Vaccine, 6+MO IM ( QUADRIVALENT W/PRESERVATIVES) [...] Comments Blood Pressure 136/83 09/01/2019 9:42 AM UX DESIGN MANAGER Pulse 71 09/01/2019 9:42 AM UX DESIGN MANAGER Temperature 36.6 ??C (97.9 ??F) 09/01/2019 9:42 AM CS T Respiratory Rate 16 09/01/2019 9:42 AM UX DESIGN MANAGER Oxygen Saturation 98% 03/16/2019 10:00 AM CDT Inhaled Oxygen Concentration - - Weight 74.4 kg (164 lb) 09/01/2019 9:42 AM UX DESIGN MANAGER Height 158.8 cm (5' 2.5) 03/16/2019 10:00 AM CD T Body Mass Index 29.52 03/16/2019 10:00 AM CDT Plan of Treatment Not on file Care Teams Hiv Counselor Relationship Specialty Start Date End Date Ramos Fontanez PCP - General 12/31/05
--- OUTSIDE RECORDS SUMMARY | 2024-05-09 14:15 | XMS_ITS | Referral Summary ---
Author Organization [facility] Address [address] [place] [address] Care Team Providers Care Marketing Director Name Role Phone HuseyinRamosCowdrey Primary Care Provider Unavaila ble Allergies No [...] Comments Blood Pressure 136/83 09/01/2019 9:42 AM MED AIDE Pulse 71 09/01/2019 9:42 AM MED AIDE Temperature 36.6 ??C (97.9 ??F) 09/01/2019 9:42 AM CS T Respiratory Rate 16 09/01/2019 9:42 AM MED AIDE Oxygen Saturation 98% 03/16/2019 10:00 AM CDT Inhaled Oxygen Concentration - - Weight 74.4 kg (164 lb) 09/01/2019 9:42 AM MED AIDE Height 158.8 cm (5' 2.5) 03/16/2019 10:00 AM CD T Body Mass Index 29.52 03/16/2019 10:00 AM CDT Plan of Treatment Not on file Care Teams Marketing Director Relationship Specialty Start Date End Date Ramos Fontanez PCP - General 12/31/05
--- OUTSIDE RECORDS SUMMARY | 2024-05-09 14:15 | XMS_ITS ---
Author Organization [facility] Address [address] [place] [address] Care Team Providers Care Enterprise Security Architect Name Role Phone Unavailable Unavailable Unavailable Surgery Details Not on file Complications Check Surgery Details section. Procedure Estimated Blood Loss Check Surgery Details section. Procedure Findings Check Surgery Details section. Procedure Specimens Taken Check Surgery Details section.
--- OUTSIDE RECORDS SUMMARY | 2024-05-09 14:15 | XMS_ITS | Clinical Summary ---
Author Organization [facility] Address [address] [place] [address] Care Team Providers Care Clutch Assembler Name Role Phone Unavailable Primary Care Provider Unavailabl e Source Comments Patient records contain information from all sites at [facility]. For routine questions regarding patient records, call [phone] during business hours, M-F 8:00 AM - 5:00 PM Central Time. Record requests for emergency care only can be directed to [phone] at any time.[facility] Allergies No known active allergies Immunizations [...] Friends and Family Patient declined 02/19/2019 Attends [employer] Services Patient declined 01/29 Active Member of Clubs or Organizations Patient declined 02/19/2019 Attends Club or Organization Meetings Patient de clined 02/19/2019 Marital Status 02/19/2019 AUDIT-C Answer Date Recorded Frequency of Alcohol Consumption 2-3 times a wee k 02/19/2019 Average Number of Drinks 3 or 4 019 Frequency of Binge Drinking Never 01/29 [facility] [place] of Occupat ional Health - Occupational Stress [...] Comments Blood Pressure 110/60 08/28/2013 3:02 PM DIRECTOR OF OCCUPATIONAL HEALTH Pulse 72 08/28/2013 3:02 PM DIRECTOR OF OCCUPATIONAL HEALTH Temperature - - Respiratory Rate 18 08/28/2013 3:02 PM DIRECTOR OF OCCUPATIONAL HEALTH Oxygen Saturation - - Inhaled Oxygen Concentration - - Weight 72.9 kg (160 lb 11.5 oz) 08/28/2013 3:02 PM DIRECTOR OF OCCUPATIONAL HEALTH Height 160 cm (5' 2.99) 07/18/2013 7:54 AM DIRECTOR OF OCCUPATIONAL HEALTH Body Mass Index 28.48 07/18/2013 7:54 AM DIRECTOR OF OCCUPATIONAL HEALTH Plan of Treatment Health Maintenance Due Date Last Done Comments Bone Density Scan (Osteoporo sis Screen) 1952 CT Colonography 1950 Cologuard 1950 FIT 1950 Hepatitis C Screening 1950 Colonoscopy 12/17/2015 12/16/2005 Colorectal Cancer Screening 12/17/2015 Fasting Glucose for Diabetes Screening 07/18/2016 07/18/2013, 02/23/2012 DTaP,Tdap,and Td Vaccines (2 - Td or Tdap) 07/18/2023 07/18/2013, 07/18/2013 Mammogram 07/22/2023 07/22/2022, 06/30, 07/11/2020, Additional history exists Depression Screening (Annual PHQ-2) 08/30/2023 Fall Risk Screen (Annual) 08/30/2023 COVID-19 Vaccine (4 - 2022-2 4 season) 2024 07/18/2021, 11/01/2020, 10/04/2020 Influenza Vaccine (#1) 2024 3, 06/19/2022, 06/26/2020, Additional history exists Pneumococcal vaccine (65+ years) Completed 09/07/19 19, 09/16/2017 Zoster Vaccines Completed 09/15/2021, 10/0 03/2021, 02/19/2015 Procedures Procedure Name Priority Date/Time Associated Diagnosis Comments BI BREAST SCREENING BILATERAL WITH TOMOSYNTHESIS RAD - Routine (most inpatients and all outpatients) 07/22/2022 2:42 PM DIRECTOR OF OCCUPATIONAL HEALTH Screening Mammogram Breast Cancer GLUCOSE, FASTING, S/P Routine 07/18/2013 9:11 AM DIRECTOR OF OCCUPATIONAL HEALTH from Last 3 Months or Most Recently Relevant to Health Maintenance Results * BI Breast Screening Bilateral with Tomosynthesis (07/22/2022 2:42 PM DIRECTOR OF OCCUPATIONAL HEALTH) Anatomical Region Laterality Modality Breast, Breast Imaging RST L OS, Breast Imaging ARZ LOS, Breast Imaging FLA LOS Bilateral Mammography 07/23/2022 8:56 AM DIRECTOR OF OCCUPATIONAL HEALTH Impressions 07/23/2022 8:59 AM DIRECTOR OF OCCUPATIONAL HEALTH Negative. RECOMMENDATION: ??Annual Screening Mammogram ASSESSMENT: ??BI-RADS: 1: Negative. Narrative 07/23/2022 8:59 AM DIRECTOR OF OCCUPATIONAL HEALTH EXAM: ??BI BREAST SCREENING BILATERAL WITH TOMOSYNTHESIS [...] PROCEDURES * Glucose, Fasting (07/18/2013 9:11 AM DIRECTOR OF OCCUPATIONAL HEALTH) Glucose, Fasting, S 93 70 - 99 MGDL POWERCHART Blood 07/18/2013 9:11 AM DIRECTOR OF OCCUPATIONAL HEALTH Madonna Sanchez M.D. LAB BLOOD NON ADD-ON POWERCHART from Last 3 Months or Most Recently Relevant to Health Maintenance
--- OUTSIDE RECORDS SUMMARY | 2024-05-09 14:15 | XMS_ITS | Encounter Summary ---
Author Organization [facility] Address [address] [place] [address] Care Team Providers Care Cardiology Tech Name Role Phone HuseyinRamosTampa Primary Care Provider Unavaila ble Encounter Details Date Type Department Care Team (Late st Contact Info) Description 06/14/2008 [facility] in [facility] [address] [place] [phone] Linnea Rutherford [address] [place] [phone] Social History Tobacco Use Types Packs/Day Years [...] on filedocumented in this encounter Care Teams Cardiology Tech Relationship Specialty Start Date End Date Edie FontanezTampa PCP - General 12/31/05 documented as of this encounter
--- OUTSIDE RECORDS SUMMARY | 2024-05-09 14:15 | XMS_ITS | Encounter Summary ---
Author Organization [facility] Address [address] [place] [address] Care Team Providers Care Formstone Fitter Name Role Phone [place]amos[place] Primary Care Provider Unavaila ble Encounter Details Date Type Department Care Team (Late st Contact Info) Description 06/23/2008 [facility] in [facility] [address] [place] [phone] Linnea Rutherford [address] [place] [phone] Social History Tobacco Use Types Packs/Day Years [...] on filedocumented in this encounter Care Teams Formstone Fitter Relationship Specialty Start Date End Date Edie FontanezShelbyville PCP - General 12/31/05 documented as of this encounter
--- NOTE | 2024-05-09 14:30 | CRLHL7_ITS ---
For Patients: As a result of the Century Cures Act, medical imaging exams and procedure reports are released immediately into your electronic medical record. You may view this report before your referring provider. If you have questions, please contact your health care provider. INDICATION: Sacral pain. TECHNIQUE: Noncontrast MRI of the sacrum/pelvis. Sagittal, axial and coronal oblique T1 and STIR images were obtained of the sacrum, sacroiliac joints and coccyx. Coronal T1 and coronal STIR large [id number] images were obtained of the entire pelvis. 1.5 tawanda MRI scanner. COMPARISON: Radiographs from 04/13/2024. FINDINGS: There are findings of bilateral sacroiliitis with periarticular bone marrow edema about both sacroiliac joints. There are erosions. Mild periarticular soft tissue edema anteriorly. No ankylosis. No acute sacral or coccygeal fracture. Degenerative disc and joint disease within the lower lumbar spine. Periarticular bone marrow edema and soft tissue edema about bilateral L4-L5 facet joints. Lumbar MRI is reported separately. Arthrosis of the pubic symphysis with periarticular bone marrow edema which may relate to osteitis pubis or degenerative bone marrow edema. No hip joint effusion on either side. No erosive change involving either hip. Uterine fibroid. Colonic diverticulosis. IMPRESSION: 1. Bilateral sacroiliitis with periarticular bone marrow edema and erosive change. 2. Degenerative changes within the lower lumbar spine. Periarticular bone marrow edema and soft tissue edema about bilateral L4-L5 facet joints. Lumbar MRI reported separately. 3. Arthrosis of the pubic symphysis with periarticular bone marrow edema which may relate either to osteitis pubis or degenerative bone marrow edema. 4. No hip joint effusion. No erosive change involving either hip. Dictated by Trevin Muniz MD @ 05/10/2024 12:25:45 PM (Electronically Signed)
--- NOTE | 2024-05-09 15:15 | CRLHL7_ITS ---
For Patients: As a result of the 21st Century Cures Act, medical imaging exams and procedure reports are released immediately into your electronic medical record. You may view this report before your referring provider. If you have questions, please contact your health care provider. INDICATION: Low back pain. COMPARISON: 04/13/2024. Technique Sagittal T1, T2, and STIR sequences. Axial T1 and T2 weighted sequences. FINDINGS: Grade 1 anterolisthesis of L4 on L5 measures approximately 4 mm. Otherwise, normal alignment. No fractures. No vertebral body loss of height. No ligamentous injury. No suspicious osseous lesions. Normal conus terminates at L2. There is marrow edema of the articular processes of the bilateral L4-5 facet joints, right greater left, which may represent stress reaction or inflammation from facet arthritis. Associated surrounding soft tissue edema, greater on the right. At the level of L2-3, there is an intradural nodule measuring approximately 8 mm in diameter (best seen on series 2, image 9; series 7, image 17). Associated displacement of the cauda equina nerve roots posteriorly. Finding may represent a nerve sheath tumor. T12-L1: No spinal canal neural foraminal narrowing. L1-2: Disc degeneration. Diffuse disc bulge. No narrowing of spinal canal. No neural foraminal narrowing. L2-3: Disc degeneration posted disc bulge. Mild narrowing of spinal canal. No neural foraminal narrowing. L3-4: Disc degeneration. Diffuse disc bulge. No spinal canal neural foraminal narrowing. L4-5: Grade 1 anterolisthesis. Disc degeneration. Loss of disc height. Motor type 1 endplate changes. Mild narrowing of spinal canal. Oblique orientation of bilateral foramina with moderate narrowing. Moderate arthropathy. L5-S1: Disc degeneration posted disc bulge. No narrowing of spinal canal. No impingement of the traversing S1 nerve roots. Mild right and esnb-lg-[id number] left neural foraminal narrowing. Moderate arthropathy. Degenerative changes of the SI joints. IMPRESSION: 1. Trace grade 1 anterolisthesis of L4 on L5. Otherwise normal alignment. No fractures 2. Marrow edema of the articular processes of the bilateral L4-5 facet joints, right greater than left, which may represent stress reaction or inflammation. 3. Intradural nodule at the level of L2-3. Findings indeterminate and may represent a nerve sheath tumor. Recommend follow-up with MRI with IV gadolinium for further evaluation. 4. Lumbar spondylosis. 5. At L4-5, mild narrowing of the spinal canal. Moderate narrowing of the bilateral neural foramina 6. At L5-S1, mild right and xnra-od-owfqogub left neural foraminal narrowing. Dictated by Colton Contreras MD @ 05/11/2024 10:21:34 AM (Electronically Signed)
== END 2024-05-09 14:13 | disposition home or self-care (01) ==
LOC: MRI 14:13
PROVIDERS: PCP Family Medicine; Visit Provider Family Medicine
DX: M53.3 Sacrococcygeal disorders, not elsewhere classified (principal); M46.1 Sacroiliitis, not elsewhere classified; M19.09 Primary osteoarthritis, other specified site; M54.16 Radiculopathy, lumbar region; M54.9 Dorsalgia, unspecified
CPT/HCPCS: 72148; 72195

== ENCOUNTER 2024-05-15 15:04 | Outpatient (CLI) | payer MEDICARE, SELFPAY ==
--- OUTSIDE RECORDS SUMMARY | 2024-05-15 15:07 | XMS_ITS | Clinical Summary ---
Author Organization [facility] Address [address] [place] [address] Care Team Providers Care Gate Services Supervisor Name Role Phone HuseyinRamosMelrose Primary Care Provider Unavaila ble Allergies No [...] Comments Blood Pressure 136/83 09/01/2019 9:42 AM FARMWORKER LIVESTOCK Pulse 71 09/01/2019 9:42 AM FARMWORKER LIVESTOCK Temperature 36.6 ??C (97.9 ??F) 09/01/2019 9:42 AM CS T Respiratory Rate 16 09/01/2019 9:42 AM FARMWORKER LIVESTOCK Oxygen Saturation 98% 03/16/2019 10:00 AM CDT Inhaled Oxygen Concentration - - Weight 74.4 kg (164 lb) 09/01/2019 9:42 AM FARMWORKER LIVESTOCK Height 158.8 cm (5' 2.5) 03/16/2019 10:00 AM CD T Body Mass Index 29.52 03/16/2019 10:00 AM CDT Plan of Treatment Not on file Care Teams Gate Services Supervisor Relationship Specialty Start Date End Date Ramos Fontanez PCP - General 12/31/05
--- OUTSIDE RECORDS SUMMARY | 2024-05-15 15:07 | XMS_ITS | Referral Summary ---
Author Organization [facility] Address [address] [place] [address] Care Team Providers Care Neuropsychiatrist Name Role Phone HuseyinRamosPrescott Primary Care Provider Unavaila ble Allergies No [...] Comments Blood Pressure 136/83 09/01/2019 9:42 AM LABORER Pulse 71 09/01/2019 9:42 AM LABORER Temperature 36.6 ??C (97.9 ??F) 09/01/2019 9:42 AM CS T Respiratory Rate 16 09/01/2019 9:42 AM LABORER Oxygen Saturation 98% 03/16/2019 10:00 AM CDT Inhaled Oxygen Concentration - - Weight 74.4 kg (164 lb) 09/01/2019 9:42 AM LABORER Height 158.8 cm (5' 2.5) 03/16/2019 10:00 AM CD T Body Mass Index 29.52 03/16/2019 10:00 AM CDT Plan of Treatment Not on file Care Teams Neuropsychiatrist Relationship Specialty Start Date End Date Ramos Fontanez PCP - General 12/31/05
--- OUTSIDE RECORDS SUMMARY | 2024-05-15 15:07 | XMS_ITS | Encounter Summary ---
Author Organization [facility] Address [address] [place] [address] Care Team Providers Care Well Site Drilling Engineer Name Role Phone [place]yin[place]amos[place]ecks [place] Primary Care Provider Unavaila ble Encounter Details Date Type Department Care Team (Late st Contact Info) Description 06/14/2008 [facility] in [facility] [address] [place] [phone] Linnea Rutherford [address] [place] [phone] Social History Tobacco Use Types Packs/Day Years [...] on filedocumented in this encounter Care Teams Well Site Drilling Engineer Relationship Specialty Start Date End Date Edie FontanezPecks Mill PCP - General 12/31/05 documented as of this encounter
--- OUTSIDE RECORDS SUMMARY | 2024-05-15 15:07 | XMS_ITS | Encounter Summary ---
Author Organization [facility] Address [address] [place] [address] Care Team Providers Care Street Superintendent Name Role Phone HuseyinRamosIredell Primary Care Provider Unavaila ble Encounter Details Date Type Department Care Team (Late st Contact Info) Description 06/23/2008 [facility] in [facility] [address] [place] [phone] Linnea Rutherford [address] [place] [phone] Social History Tobacco Use Types Packs/Day Years [...] on filedocumented in this encounter Care Teams Street Superintendent Relationship Specialty Start Date End Date Edie FontanezIredell PCP - General 12/31/05 documented as of this encounter
--- OUTSIDE RECORDS SUMMARY | 2024-05-15 15:07 | XMS_ITS | Clinical Summary ---
Author Organization [facility] Address [address] [place] [address] Care Team Providers Care Pet Caregiver Name Role Phone Unavailable Primary Care Provider Unavailabl e Source Comments Patient records contain information from all sites at [facility]. For routine questions regarding patient records, call [phone] during business hours, M-F 8:00 AM - 5:00 PM Central Time. Record requests for emergency care only can be directed to [phone] at any time.[facility] Allergies No known active allergies Immunizations Name [...] Friends and Family Patient declined 02/19/2019 Attends Yazdanism Services Patient declined 01/29 Active Member of Clubs or Organizations Patient declined 02/19/2019 Attends Club or Organization Meetings Patient de clined 02/19/2019 Marital Status 02/19/2019 AUDIT-C Answer Date Recorded Frequency of Alcohol Consumption 2-3 times a wee k 02/19/2019 Average Number of Drinks 3 or 4 019 Frequency of Binge Drinking Never 01/29 [facility] [place] of Occupat ional Health - Occupational Stress [...] Comments Blood Pressure 110/60 08/28/2013 3:02 PM OCCUPATIONAL THERAPY DEPARTMENT CHAIR Pulse 72 08/28/2013 3:02 PM OCCUPATIONAL THERAPY DEPARTMENT CHAIR Temperature - - Respiratory Rate 18 08/28/2013 3:02 PM OCCUPATIONAL THERAPY DEPARTMENT CHAIR Oxygen Saturation - - Inhaled Oxygen Concentration - - Weight 72.9 kg (160 lb 11.5 oz) 08/28/2013 3:02 PM OCCUPATIONAL THERAPY DEPARTMENT CHAIR Height 160 cm (5' 2.99) 07/18/2013 7:54 AM OCCUPATIONAL THERAPY DEPARTMENT CHAIR Body Mass Index 28.48 07/18/2013 7:54 AM OCCUPATIONAL THERAPY DEPARTMENT CHAIR Plan of Treatment Health Maintenance Due Date [...] inpatients and all outpatients) 07/22/2022 2:42 PM OCCUPATIONAL THERAPY DEPARTMENT CHAIR Screening Mammogram Breast Cancer GLUCOSE, FASTING, S/P Routine 07/18/2013 9:11 AM OCCUPATIONAL THERAPY DEPARTMENT CHAIR from Last 3 Months or Most Recently Relevant to Health Maintenance Results * BI Breast Screening Bilateral with Tomosynthesis (07/22/2022 2:42 PM OCCUPATIONAL THERAPY DEPARTMENT CHAIR) Anatomical Region Laterality Modality Breast, Breast Imaging RST L OS, Breast Imaging ARZ LOS, Breast Imaging FLA LOS Bilateral Mammography 07/23/2022 8:56 AM OCCUPATIONAL THERAPY DEPARTMENT CHAIR Impressions 07/23/2022 8:59 AM OCCUPATIONAL THERAPY DEPARTMENT CHAIR Negative. RECOMMENDATION: ??Annual Screening Mammogram ASSESSMENT: ??BI-RADS: 1: Negative. Narrative 07/23/2022 8:59 AM OCCUPATIONAL THERAPY DEPARTMENT CHAIR EXAM: ??BI BREAST SCREENING BILATERAL WITH TOMOSYNTHESIS [...] PROCEDURES * Glucose, Fasting (07/18/2013 9:11 AM OCCUPATIONAL THERAPY DEPARTMENT CHAIR) Glucose, Fasting, S 93 70 - 99 MGDL POWERCHART Blood 07/18/2013 9:11 AM OCCUPATIONAL THERAPY DEPARTMENT CHAIR Madonna Sanchez M.D. LAB BLOOD NON ADD-ON POWERCHART from Last 3 Months or Most Recently Relevant to Health Maintenance
--- OUTSIDE RECORDS SUMMARY | 2024-05-15 15:07 | XMS_ITS ---
Author Organization [facility] Address [address] [place] [address] Care Team Providers Care Pier Hand Name Role Phone Unavailable Unavailable Unavailable Surgery Details Not on file Complications Check Surgery Details section. Procedure Estimated Blood Loss Check Surgery Details section. Procedure Findings Check Surgery Details section. Procedure Specimens Taken Check Surgery Details section.
--- OUTSIDE RECORDS SUMMARY | 2024-05-15 15:07 | XMS_ITS | Referral Summary ---
Author Organization [facility] Address [address] [place] [address] Care Team Providers Care Application Integration Engineer Name Role Phone Unavailable Primary Care Provider Unavailabl e Source Comments Patient records contain information from all sites at [facility]. For routine questions regarding patient records, call [phone] during business hours, M-F 8:00 AM - 5:00 PM Central Time. Record requests for emergency care only can be directed to [phone] at any time.[facility] Allergies No known active allergies [...] Friends and Family Patient declined 02/19/2019 Attends Voodoo Services Patient declined 01/29 Active Member of Clubs or Organizations Patient declined 02/19/2019 Attends Club or Organization Meetings Patient de clined 02/19/2019 Marital Status 02/19/2019 AUDIT-C Answer Date Recorded Frequency of Alcohol Consumption 2-3 times a wee k 02/19/2019 Average Number of Drinks 3 or 4 019 Frequency of Binge Drinking Never 01/29 [place] of Occupat ional Health - Occupational Stress [...] Comments Blood Pressure 110/60 08/28/2013 3:02 PM RECRUITING SCHEDULER Pulse 72 08/28/2013 3:02 PM RECRUITING SCHEDULER Temperature - - Respiratory Rate 18 08/28/2013 3:02 PM RECRUITING SCHEDULER Oxygen Saturation - - Inhaled Oxygen Concentration - - Weight 72.9 kg (160 lb 11.5 oz) 08/28/2013 3:02 PM RECRUITING SCHEDULER Height 160 cm (5' 2.99) 07/18/2013 7:54 AM RECRUITING SCHEDULER Body Mass Index 28.48 07/18/2013 7:54 AM RECRUITING SCHEDULER Plan of Treatment Not on file Procedures Procedure Name Priority Date/Time Associated Diagnosis Comments BI BREAST SCREENING BILATERAL WITH TOMOSYNTHESIS RAD - Routine (most inpatients and all outpatients) 07/22/2022 2:42 PM RECRUITING SCHEDULER Screening Mammogram Breast Cancer GLUCOSE, FASTING, S/P Routine 07/18/2013 9:11 AM RECRUITING SCHEDULER from Last 3 Months or Most Recently Relevant to Health Maintenance Results * BI Breast Screening Bilateral with Tomosynthesis (07/22/2022 2:42 PM RECRUITING SCHEDULER) Anatomical Region Laterality Modality Breast, Breast Imaging RST L OS, Breast Imaging ARZ LOS, Breast Imaging FLA LOS Bilateral Mammography 07/23/2022 8:56 AM RECRUITING SCHEDULER Impressions 07/23/2022 8:59 AM RECRUITING SCHEDULER Negative. RECOMMENDATION: ??Annual Screening Mammogram ASSESSMENT: ??BI-RADS: 1: Negative. Narrative 07/23/2022 8:59 AM RECRUITING SCHEDULER EXAM: ??BI BREAST SCREENING BILATERAL WITH TOMOSYNTHESIS [...] PROCEDURES * Glucose, Fasting (07/18/2013 9:11 AM RECRUITING SCHEDULER) Glucose, Fasting, S 93 70 - 99 MGDL POWERCHART Blood 07/18/2013 9:11 AM RECRUITING SCHEDULER Madonna Sanchez M.D. LAB BLOOD NON ADD-ON POWERCHART from Last 3 Months or Most Recently Relevant to Health Maintenance
--- NOTE | 2024-05-15 15:30 | CRLHL7_ITS ---
For Patients: As a result of the Century Cures Act, medical imaging exams and procedure reports are released immediately into your electronic medical record. You may view this report before your referring provider. If you have questions, please contact your health care provider. Indication: Evaluate nerve sheath tumor Technique: MRI lumbar spine with contrast. Noncontrast sagittal T1, coronal T2 weighted, axial and sagittal T1 weighted postcontrast fat-suppressed sequences following administration of 15 cc Dotarem IV contrast. Comparison: MRI 05/09/2024 Findings: Mild levocurvature of the lumbar spine. Degenerative grade 1 anterolisthesis at L4-5. Leftward listhesis of L4 on L5. Chronic Schmorl`s nodes at multiple levels. Chronic T12 superior endplate compression fracture. Modic type 2 endplate degenerative changes at L1-2 and L4-5. Advanced left and moderate right facet arthrosis L5-S1. Advanced bilateral facet arthrosis at L4-5. Bilateral sacroiliitis with acute inflammation and enhancement, without joint effusion. There are 2 enhancing intradural extramedullary nodules along the cauda equina nerve roots centered at the L2-3 level measuring up to 1 cm by 1 cm by 0.8 cm and 0.5 by 0.5 x 0.5 cm. Diffuse enhancement of the right L4 and L5 pedicles and right facet joint with moderate periarticular edema and enhancement and to a lesser extent the left L4 and L5 pedicles and left facet joint. Findings likely due to advanced osteoarthritic changes and acute inflammation. Diverticulosis of the sigmoid colon. Incidental right renal cysts. Impression : 1. Bilateral acute sacroiliitis. No sacroiliac joint effusions. 2. Diffuse edema and enhancement of the bilateral L4-5 facet joints and right greater than left pedicles likely due to advanced osteoarthritic changes and acute inflammation. 3. There are 2 enhancing intradural extramedullary nodules along the cauda equina nerve roots centered at the L2-3 level measuring up to 1 cm by 1 cm by 0.8 cm and 0.5 by 0.5 x 0.5 cm. 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 Dictated by Eric Snider MD @ 05/16/2024 2:45:15 PM (Electronically Signed)
== END 2024-05-15 15:05 | disposition home or self-care (01) ==
LOC: MRI 15:05
PROVIDERS: PCP Family Medicine; Visit Provider Family Medicine
DX: M54.50 Low back pain, unspecified (principal); M46.1 Sacroiliitis, not elsewhere classified; D49.2 Neoplasm of unspecified behavior of bone, soft tissue, and skin
CPT/HCPCS: 72149

== ENCOUNTER 2024-05-18 14:05 | Outpatient (CLI) | payer MEDICARE, SELFPAY ==
--- OUTSIDE RECORDS SUMMARY | 2024-05-19 09:11 | XMS_ITS | Encounter Summary ---
Author Organization [place] [facility] Address [address] [place] [address] Care Team Providers Care Corporate Scheduler Name Role Phone HuseyinRamosHealy Primary Care Provider Unavaila ble Encounter Details Date Type Department Care Team (Late st Contact Info) Description 06/14/2008 [facility] in [facility] [address] [place] [phone] Linnea Rutherford [address] [place] [phone] Social History Tobacco Use Types Packs/Day Years [...] on filedocumented in this encounter Care Teams Corporate Scheduler Relationship Specialty Start Date End Date Edie FontanezHealy PCP - General 12/31/05 documented as of this encounter
--- OUTSIDE RECORDS SUMMARY | 2024-05-19 09:11 | XMS_ITS | Referral Summary ---
Author Organization [facility] Address [address] [place] [address] Care Team Providers Care Information Technology Project Manager Name Role Phone Unavailable Primary Care Provider Unavailabl e Source Comments Patient records contain information from all sites at [facility]. For routine questions regarding patient records, call [phone] during business hours, M-F 8:00 AM - 5:00 PM Central Time. Record requests for emergency care only can be directed to [phone] at any time.[facility] Allergies No known active allergies Immunizations Name [...] Friends and Family Patient declined 02/19/2019 Attends Anabaptism Services Patient declined 01/29 Active Member of Clubs or Organizations Patient declined 02/19/2019 Attends Club or Organization Meetings Patient de clined 02/19/2019 Marital Status 02/19/2019 AUDIT-C Answer Date Recorded Frequency of Alcohol Consumption 2-3 times a wee k 02/19/2019 Average Number of Drinks 3 or 4 019 Frequency of Binge Drinking Never 01/29 [facility] [place] of Occupat ional Health - Occupational Stress [...] Comments Blood Pressure 110/60 08/28/2013 3:02 PM CATAPULT AND ARRESTING GEAR OFFICER Pulse 72 08/28/2013 3:02 PM CATAPULT AND ARRESTING GEAR OFFICER Temperature - - Respiratory Rate 18 08/28/2013 3:02 PM CATAPULT AND ARRESTING GEAR OFFICER Oxygen Saturation - - Inhaled Oxygen Concentration - - Weight 72.9 kg (160 lb 11.5 oz) 08/28/2013 3:02 PM CATAPULT AND ARRESTING GEAR OFFICER Height 160 cm (5' 2.99) 07/18/2013 7:54 AM CATAPULT AND ARRESTING GEAR OFFICER Body Mass Index 28.48 07/18/2013 7:54 AM CATAPULT AND ARRESTING GEAR OFFICER Plan of Treatment Not on file Procedures Procedure Name Priority Date/Time Associated Diagnosis Comments BI BREAST SCREENING BILATERAL WITH TOMOSYNTHESIS RAD - Routine (most inpatients and all outpatients) 07/22/2022 2:42 PM CATAPULT AND ARRESTING GEAR OFFICER Screening Mammogram Breast Cancer GLUCOSE, FASTING, S/P Routine 07/18/2013 9:11 AM CATAPULT AND ARRESTING GEAR OFFICER from Last 3 Months or Most Recently Relevant to Health Maintenance Results * BI Breast Screening Bilateral with Tomosynthesis (07/22/2022 2:42 PM CATAPULT AND ARRESTING GEAR OFFICER) Anatomical Region Laterality Modality Breast, Breast Imaging RST L OS, Breast Imaging ARZ LOS, Breast Imaging FLA LOS Bilateral Mammography 07/23/2022 8:56 AM CATAPULT AND ARRESTING GEAR OFFICER Impressions 07/23/2022 8:59 AM CATAPULT AND ARRESTING GEAR OFFICER Negative. RECOMMENDATION: ??Annual Screening Mammogram ASSESSMENT: ??BI-RADS: 1: Negative. Narrative 07/23/2022 8:59 AM CATAPULT AND ARRESTING GEAR OFFICER EXAM: ??BI BREAST SCREENING BILATERAL WITH TOMOSYNTHESIS [...] PROCEDURES * Glucose, Fasting (07/18/2013 9:11 AM CATAPULT AND ARRESTING GEAR OFFICER) Glucose, Fasting, S 93 70 - 99 MGDL POWERCHART Blood 07/18/2013 9:11 AM CATAPULT AND ARRESTING GEAR OFFICER Madonna Sanchez M.D. LAB BLOOD NON ADD-ON POWERCHART from Last 3 Months or Most Recently Relevant to Health Maintenance
--- OUTSIDE RECORDS SUMMARY | 2024-05-19 09:11 | XMS_ITS ---
Author Organization [facility] Address [address] [place] [address] Care Team Providers Care Lever Operator Name Role Phone Unavailable Unavailable Unavailable Surgery Details Not on file Complications Check Surgery Details section. Procedure Estimated Blood Loss Check Surgery Details section. Procedure Findings Check Surgery Details section. Procedure Specimens Taken Check Surgery Details section.
--- OUTSIDE RECORDS SUMMARY | 2024-05-19 09:11 | XMS_ITS | Clinical Summary ---
Author Organization [facility] Address [address] [place] [address] Care Team Providers Care Clinical Trials Manager Name Role Phone Unavailable Primary Care Provider Unavailabl e Source Comments Patient records contain information from all sites at [facility]. For routine questions regarding patient records, call [phone] during business hours, M-F 8:00 AM - 5:00 PM Central Time. Record requests for emergency care only can be directed to [phone] at any time.[facility] Allergies No known active allergies Immunizations [...] Friends and Family Patient declined 02/19/2019 Attends Protestant Services Patient declined 01/29 Active Member of Clubs or Organizations Patient declined 02/19/2019 Attends Club or Organization Meetings Patient de clined 02/19/2019 Marital Status 02/19/2019 AUDIT-C Answer Date Recorded Frequency of Alcohol Consumption 2-3 times a wee k 02/19/2019 Average Number of Drinks 3 or 4 019 Frequency of Binge Drinking Never 01/29 [facility] [place] of Occupat ional Health - Occupational Stress [...] Comments Blood Pressure 110/60 08/28/2013 3:02 PM CONCRETE MIXING PLANT SUPERINTENDENT Pulse 72 08/28/2013 3:02 PM CONCRETE MIXING PLANT SUPERINTENDENT Temperature - - Respiratory Rate 18 08/28/2013 3:02 PM CONCRETE MIXING PLANT SUPERINTENDENT Oxygen Saturation - - Inhaled Oxygen Concentration - - Weight 72.9 kg (160 lb 11.5 oz) 08/28/2013 3:02 PM CONCRETE MIXING PLANT SUPERINTENDENT Height 160 cm (5' 2.99) 07/18/2013 7:54 AM CONCRETE MIXING PLANT SUPERINTENDENT Body Mass Index 28.48 07/18/2013 7:54 AM CONCRETE MIXING PLANT SUPERINTENDENT Plan of Treatment Health Maintenance Due Date [...] inpatients and all outpatients) 07/22/2022 2:42 PM CONCRETE MIXING PLANT SUPERINTENDENT Screening Mammogram Breast Cancer GLUCOSE, FASTING, S/P Routine 07/18/2013 9:11 AM CONCRETE MIXING PLANT SUPERINTENDENT from Last 3 Months or Most Recently Relevant to Health Maintenance Results * BI Breast Screening Bilateral with Tomosynthesis (07/22/2022 2:42 PM CONCRETE MIXING PLANT SUPERINTENDENT) Anatomical Region Laterality Modality Breast, Breast Imaging RST L OS, Breast Imaging ARZ LOS, Breast Imaging FLA LOS Bilateral Mammography 07/23/2022 8:56 AM CONCRETE MIXING PLANT SUPERINTENDENT Impressions 07/23/2022 8:59 AM CONCRETE MIXING PLANT SUPERINTENDENT Negative. RECOMMENDATION: ??Annual Screening Mammogram ASSESSMENT: ??BI-RADS: 1: Negative. Narrative 07/23/2022 8:59 AM CONCRETE MIXING PLANT SUPERINTENDENT EXAM: ??BI BREAST SCREENING BILATERAL WITH TOMOSYNTHESIS [...] PROCEDURES * Glucose, Fasting (07/18/2013 9:11 AM CONCRETE MIXING PLANT SUPERINTENDENT) Glucose, Fasting, S 93 70 - 99 MGDL POWERCHART Blood 07/18/2013 9:11 AM CONCRETE MIXING PLANT SUPERINTENDENT Madonna Sanchez M.D. LAB BLOOD NON ADD-ON POWERCHART from Last 3 Months or Most Recently Relevant to Health Maintenance
--- OUTSIDE RECORDS SUMMARY | 2024-05-19 09:11 | XMS_ITS | Encounter Summary ---
Author Organization [facility] Address [address] [place] [address] Care Team Providers Care Continuous Loft Operator Name Role Phone HuseyinRamosTalbotton Primary Care Provider Unavaila ble Encounter Details Date Type Department Care Team (Late st Contact Info) Description 06/23/2008 [facility] in [facility] [address] [place] [phone] Linnea Rutherford [address] [place] [phone] Social History Tobacco Use Types Packs/Day Years [...] on filedocumented in this encounter Care Teams Continuous Loft Operator Relationship Specialty Start Date End Date Edie FontanezTalbotton PCP - General 12/31/05 documented as of this encounter
--- OUTSIDE RECORDS SUMMARY | 2024-05-19 09:11 | XMS_ITS | Clinical Summary ---
Author Organization [facility] Address [address] [place] [address] Care Team Providers Care Linux Devops Engineer Name Role Phone HuseyinRamosLignum Primary Care Provider Unavaila ble Allergies No [...] Comments Blood Pressure 136/83 09/01/2019 9:42 AM FORGING PRESS OPERATOR Pulse 71 09/01/2019 9:42 AM FORGING PRESS OPERATOR Temperature 36.6 ??C (97.9 ??F) 09/01/2019 9:42 AM CS T Respiratory Rate 16 09/01/2019 9:42 AM FORGING PRESS OPERATOR Oxygen Saturation 98% 03/16/2019 10:00 AM CDT Inhaled Oxygen Concentration - - Weight 74.4 kg (164 lb) 09/01/2019 9:42 AM FORGING PRESS OPERATOR Height 158.8 cm (5' 2.5) 03/16/2019 10:00 AM CD T Body Mass Index 29.52 03/16/2019 10:00 AM CDT Plan of Treatment Not on file Care Teams Linux Devops Engineer Relationship Specialty Start Date End Date Ramos Fontanez PCP - General 12/31/05
--- OUTSIDE RECORDS SUMMARY | 2024-05-19 09:11 | XMS_ITS | Referral Summary ---
Author Organization [facility] Address [address] [place] [address] Care Team Providers Care Continuous Mining Machine Company Miner Name Role Phone HuseyinRamosGreenbank Primary Care Provider Unavaila ble Allergies No [...] Comments Blood Pressure 136/83 09/01/2019 9:42 AM LEATHER TANNER Pulse 71 09/01/2019 9:42 AM LEATHER TANNER Temperature 36.6 ??C (97.9 ??F) 09/01/2019 9:42 AM CS T Respiratory Rate 16 09/01/2019 9:42 AM LEATHER TANNER Oxygen Saturation 98% 03/16/2019 10:00 AM CDT Inhaled Oxygen Concentration - - Weight 74.4 kg (164 lb) 09/01/2019 9:42 AM LEATHER TANNER Height 158.8 cm (5' 2.5) 03/16/2019 10:00 AM CD T Body Mass Index 29.52 03/16/2019 10:00 AM CDT Plan of Treatment Not on file Care Teams Continuous Mining Machine Company Miner Relationship Specialty Start Date End Date Ramos Fontanez PCP - General 12/31/05
== END 2024-05-18 14:06 | disposition home or self-care (01) ==
LOC: NFLDREF 05-19 09:08
PROVIDERS: PCP Family Medicine; Referring Provider Family Medicine; Visit Provider Family Medicine
DX: R93.7 Abnormal findings on diagnostic imaging of other parts of musculoskeletal system (principal); M54.50 Low back pain, unspecified; D49.2 Neoplasm of unspecified behavior of bone, soft tissue, and skin; M54.16 Radiculopathy, lumbar region; M19.011 Primary osteoarthritis, right shoulder; M81.0 Age-related osteoporosis without current pathological fracture
CPT/HCPCS: 86140; 86431; 86812; 87086; 87491; 87591

== ENCOUNTER 2024-05-19 13:30 | Outpatient (CLI) | payer MEDICARE, SELFPAY ==
--- OUTSIDE RECORDS SUMMARY | 2024-05-21 03:47 | XMS_ITS | Continuity of Care Document ---
Author Organization [facility] Address [address] [address] [place] [address] Phone Care Team Providers Care Senior It Specialist Name Role Phone Unavailable Unavailable Unavailable Allergies, [...] Diagnoses Date Provider Providers Copied on Encounter [facility], [address] [address], [place], [id number], [place] tel:[phone] Mackenzie [facility] Diverticulosis of large intestine without hemorrhageColo n cancer screeningEncou nter for screening for malignant neoplasm of colonDvrtclos of lg int w/o perforation or abscess w/o bleeding No Information Referring Provider: Referral Self, USE FOR SELF REFERRALS. [facility], [address] [address], [place], [place], [id number], [place] tel:[phone] [facility] No Information Link MD Wang. [address] [facility], [address], [place], [place], [id number], [place]. tel:[phone] Referring Provider: Referral Self, USE FOR SELF REFERRALS. Family History Family Member Type Diagnosis Age At Onset Mother Problem (finding) Son Problem (finding) Alive and well Brother Problem (finding) Alive and well Sister Problem (finding) Alive and well Father Problem (finding) Payers Payer name Insurance type Covered constitution party ID Jen reyes(s) [id number] Social History Type Description Quantity Date Captured [...]
--- OUTSIDE RECORDS SUMMARY | 2024-05-21 03:47 | XMS_ITS | Referral Summary ---
Author Organization [facility] Address [address] [place] [address] Care Team Providers Care Senior Product Analyst Name Role Phone HuseyinRamosSilver Creek Primary Care Provider Unavaila ble Allergies No [...] Comments Blood Pressure 136/83 09/01/2019 9:42 AM FRAME OPERATOR Pulse 71 09/01/2019 9:42 AM FRAME OPERATOR Temperature 36.6 ??C (97.9 ??F) 09/01/2019 9:42 AM CS T Respiratory Rate 16 09/01/2019 9:42 AM FRAME OPERATOR Oxygen Saturation 98% 03/16/2019 10:00 AM CDT Inhaled Oxygen Concentration - - Weight 74.4 kg (164 lb) 09/01/2019 9:42 AM FRAME OPERATOR Height 158.8 cm (5' 2.5) 03/16/2019 10:00 AM CD T Body Mass Index 29.52 03/16/2019 10:00 AM CDT Plan of Treatment Not on file Care Teams Senior Product Analyst Relationship Specialty Start Date End Date Ramos Fontanez PCP - General 12/31/05
--- OUTSIDE RECORDS SUMMARY | 2024-05-21 03:47 | XMS_ITS | Referral Summary ---
Author Organization [facility] Address [address] [place] [address] Care Team Providers Care Biofuels Product Manager Name Role Phone Unavailable Primary Care Provider Unavailabl e Source Comments Patient records contain information from all sites at [facility]. For routine questions regarding patient records, call [phone] during business hours, M-F 8:00 AM - 5:00 PM Central Time. Record requests for emergency care only can be directed to [phone] at any time.[facility] Allergies No known active allergies Immunizations Name [...] Friends and Family Patient declined 02/19/2019 Attends Yazidism Services Patient declined 01/29 Active Member of Clubs or Organizations Patient declined 02/19/2019 Attends Club or Organization Meetings Patient de clined 02/19/2019 Marital Status 02/19/2019 AUDIT-C Answer Date Recorded Frequency of Alcohol Consumption 2-3 times a wee k 02/19/2019 Average Number of Drinks 3 or 4 019 Frequency of Binge Drinking Never 01/29 [facility] [place] of Occupat ional Health - Occupational Stress [...] Comments Blood Pressure 110/60 08/28/2013 3:02 PM MAP AND CHART MOUNTER Pulse 72 08/28/2013 3:02 PM MAP AND CHART MOUNTER Temperature - - Respiratory Rate 18 08/28/2013 3:02 PM MAP AND CHART MOUNTER Oxygen Saturation - - Inhaled Oxygen Concentration - - Weight 72.9 kg (160 lb 11.5 oz) 08/28/2013 3:02 PM MAP AND CHART MOUNTER Height 160 cm (5' 2.99) 07/18/2013 7:54 AM MAP AND CHART MOUNTER Body Mass Index 28.48 07/18/2013 7:54 AM MAP AND CHART MOUNTER Plan of Treatment Not on file Procedures Procedure Name Priority Date/Time Associated Diagnosis Comments BI BREAST SCREENING BILATERAL WITH TOMOSYNTHESIS RAD - Routine (most inpatients and all outpatients) 07/22/2022 2:42 PM MAP AND CHART MOUNTER Screening Mammogram Breast Cancer GLUCOSE, FASTING, S/P Routine 07/18/2013 9:11 AM MAP AND CHART MOUNTER from Last 3 Months or Most Recently Relevant to Health Maintenance Results * BI Breast Screening Bilateral with Tomosynthesis (07/22/2022 2:42 PM MAP AND CHART MOUNTER) Anatomical Region Laterality Modality Breast, Breast Imaging RST L OS, Breast Imaging ARZ LOS, Breast Imaging FLA LOS Bilateral Mammography 07/23/2022 8:56 AM MAP AND CHART MOUNTER Impressions 07/23/2022 8:59 AM MAP AND CHART MOUNTER Negative. RECOMMENDATION: ??Annual Screening Mammogram ASSESSMENT: ??BI-RADS: 1: Negative. Narrative 07/23/2022 8:59 AM MAP AND CHART MOUNTER EXAM: ??BI BREAST SCREENING BILATERAL WITH TOMOSYNTHESIS [...] PROCEDURES * Glucose, Fasting (07/18/2013 9:11 AM MAP AND CHART MOUNTER) Glucose, Fasting, S 93 70 - 99 MGDL POWERCHART Blood 07/18/2013 9:11 AM MAP AND CHART MOUNTER Madonna Sanchez M.D. LAB BLOOD NON ADD-ON POWERCHART from Last 3 Months or Most Recently Relevant to Health Maintenance
--- OUTSIDE RECORDS SUMMARY | 2024-05-21 03:47 | XMS_ITS | Encounter Summary ---
Author Organization [facility] Address [address] [place] [address] Care Team Providers Care Domestic Housekeeper Name Role Phone HuseyinRamosGlen Spey Primary Care Provider Unavaila ble Encounter Details Date Type Department Care Team (Late st Contact Info) Description 06/23/2008 [facility] in [facility] [address] [place] [phone] Linnea Rutherford [address] [place] [phone] Social History Tobacco Use Types Packs/Day Years [...] on filedocumented in this encounter Care Teams Domestic Housekeeper Relationship Specialty Start Date End Date Edie FontanezGlen Spey PCP - General 12/31/05 documented as of this encounter
--- OUTSIDE RECORDS SUMMARY | 2024-05-21 03:47 | XMS_ITS | Clinical Summary ---
Author Organization [facility] Address [address] [place] [address] Care Team Providers Care Corrections Caseworker Name Role Phone Unavailable Primary Care Provider Unavailabl e Source Comments Patient records contain information from all sites at [facility]. For routine questions regarding patient records, call [phone] during business hours, M-F 8:00 AM - 5:00 PM Central Time. Record requests for emergency care only can be directed to [phone] at any time.[facility] Allergies No known active allergies Immunizations Name [...] Friends and Family Patient declined 02/19/2019 Attends Sikh Services Patient declined 01/29 Active Member of Clubs or Organizations Patient declined 02/19/2019 Attends Club or Organization Meetings Patient de clined 02/19/2019 Marital Status 02/19/2019 AUDIT-C Answer Date Recorded Frequency of Alcohol Consumption 2-3 times a wee k 02/19/2019 Average Number of Drinks 3 or 4 019 Frequency of Binge Drinking Never 01/29 [facility] [place] of Occupat ional Health - Occupational Stress [...] Comments Blood Pressure 110/60 08/28/2013 3:02 PM PATTERN LAYOUT WORKER Pulse 72 08/28/2013 3:02 PM PATTERN LAYOUT WORKER Temperature - - Respiratory Rate 18 08/28/2013 3:02 PM PATTERN LAYOUT WORKER Oxygen Saturation - - Inhaled Oxygen Concentration - - Weight 72.9 kg (160 lb 11.5 oz) 08/28/2013 3:02 PM PATTERN LAYOUT WORKER Height 160 cm (5' 2.99) 07/18/2013 7:54 AM PATTERN LAYOUT WORKER Body Mass Index 28.48 07/18/2013 7:54 AM PATTERN LAYOUT WORKER Plan of Treatment Health Maintenance Due Date [...] Fall Risk Screen (Annual) 08/30/2023 COVID-19 Vaccine (2023-2 5 season) 2024 07/18/2021, 11/01/2020, 10/04/2020 Influenza Vaccine (#1) 2024 3, 06/19/2022, 06/26/2020, Additional history exists Pneumococcal vaccine (65+ years) Completed 09/07/19 19, 09/16/2017 Zoster Vaccines Completed 09/15/2021, 10/0 03/2021, 02/19/2015 Procedures Procedure Name Priority Date/Time Associated Diagnosis Comments BI BREAST SCREENING BILATERAL WITH TOMOSYNTHESIS RAD - Routine (most inpatients and all outpatients) 07/22/2022 2:42 PM PATTERN LAYOUT WORKER Screening Mammogram Breast Cancer GLUCOSE, FASTING, S/P Routine 07/18/2013 9:11 AM PATTERN LAYOUT WORKER from Last 3 Months or Most Recently Relevant to Health Maintenance Results * BI Breast Screening Bilateral with Tomosynthesis (07/22/2022 2:42 PM PATTERN LAYOUT WORKER) Anatomical Region Laterality Modality Breast, Breast Imaging RST L OS, Breast Imaging ARZ LOS, Breast Imaging FLA LOS Bilateral Mammography 07/23/2022 8:56 AM PATTERN LAYOUT WORKER Impressions 07/23/2022 8:59 AM PATTERN LAYOUT WORKER Negative. RECOMMENDATION: ??Annual Screening Mammogram ASSESSMENT: ??BI-RADS: 1: Negative. Narrative 07/23/2022 8:59 AM PATTERN LAYOUT WORKER EXAM: ??BI BREAST SCREENING BILATERAL WITH TOMOSYNTHESIS [...] PROCEDURES * Glucose, Fasting (07/18/2013 9:11 AM PATTERN LAYOUT WORKER) Glucose, Fasting, S 93 70 - 99 MGDL POWERCHART Blood 07/18/2013 9:11 AM PATTERN LAYOUT WORKER Madonna Sanchez M.D. LAB BLOOD NON ADD-ON POWERCHART from Last 3 Months or Most Recently Relevant to Health Maintenance
--- OUTSIDE RECORDS SUMMARY | 2024-05-21 03:47 | XMS_ITS | Encounter Summary ---
Author Organization [facility] Address [address] [place] [address] Care Team Providers Care Nursery Supervisor Name Role Phone HuseyinRamosMccook Primary Care Provider Unavaila ble Encounter Details Date Type Department Care Team (Late st Contact Info) Description 06/14/2008 [facility] in [facility] [address] [place] [phone] Linnea Rutherford [address] [place] [phone] Social History Tobacco Use Types Packs/Day Years [...] on filedocumented in this encounter Care Teams Nursery Supervisor Relationship Specialty Start Date End Date Edie FontanezMccook PCP - General 12/31/05 documented as of this encounter
--- OUTSIDE RECORDS SUMMARY | 2024-05-21 03:47 | XMS_ITS | Clinical Summary ---
Author Organization [facility] Address [address] [place] [address] Care Team Providers Care Sterile Instrument Technician Name Role Phone HuseyinRamosAthens Primary Care Provider Unavaila ble Allergies No [...] Comments Blood Pressure 136/83 09/01/2019 9:42 AM ROTO ROOTER OPERATOR Pulse 71 09/01/2019 9:42 AM ROTO ROOTER OPERATOR Temperature 36.6 ??C (97.9 ??F) 09/01/2019 9:42 AM CS T Respiratory Rate 16 09/01/2019 9:42 AM ROTO ROOTER OPERATOR Oxygen Saturation 98% 03/16/2019 10:00 AM CDT Inhaled Oxygen Concentration - - Weight 74.4 kg (164 lb) 09/01/2019 9:42 AM ROTO ROOTER OPERATOR Height 158.8 cm (5' 2.5) 03/16/2019 10:00 AM CD T Body Mass Index 29.52 03/16/2019 10:00 AM CDT Plan of Treatment Not on file Care Teams Sterile Instrument Technician Relationship Specialty Start Date End Date Ramos Fontanez PCP - General 12/31/05
--- OUTSIDE RECORDS SUMMARY | 2024-05-21 03:47 | XMS_ITS ---
Author Organization [facility] Address [address] [place] [address] Care Team Providers Care Monorail Charger Operator Name Role Phone Unavailable Unavailable Unavailable Surgery Details Not on file Complications Check Surgery Details section. Procedure Estimated Blood Loss Check Surgery Details section. Procedure Findings Check Surgery Details section. Procedure Specimens Taken Check Surgery Details section.
== END 2024-05-19 13:31 | disposition home or self-care (01) ==
LOC: NFLDREF 05-21 03:46
PROVIDERS: PCP Family Medicine; Referring Provider Family Medicine; Visit Provider Family Medicine
DX: M54.50 Low back pain, unspecified (principal); N30.00 Acute cystitis without hematuria; R93.7 Abnormal findings on diagnostic imaging of other parts of musculoskeletal system
CPT/HCPCS: 87086; 87491; 87591

== ENCOUNTER 2024-06-07 14:07 | Outpatient (CLI) | payer MEDICARE, SELFPAY ==
--- OUTSIDE RECORDS SUMMARY | 2024-06-09 12:40 | XMS_ITS | Referral Summary ---
Author Organization [facility] Address [address] [place] [address] Care Team Providers Care Glazier Helper Name Role Phone HuseyinRamosFishers Land[place] Primary Care Provider Unavaila ble Allergies No [...] Comments Blood Pressure 136/83 09/01/2019 9:42 AM TOMBSTONE SETTER Pulse 71 09/01/2019 9:42 AM TOMBSTONE SETTER Temperature 36.6 ??C (97.9 ??F) 09/01/2019 9:42 AM CS T Respiratory Rate 16 09/01/2019 9:42 AM TOMBSTONE SETTER Oxygen Saturation 98% 03/16/2019 10:00 AM CDT Inhaled Oxygen Concentration - - Weight 74.4 kg (164 lb) 09/01/2019 9:42 AM TOMBSTONE SETTER Height 158.8 cm (5' 2.5) 03/16/2019 10:00 AM CD T Body Mass Index 29.52 03/16/2019 10:00 AM CDT Plan of Treatment Not on file Care Teams Glazier Helper Relationship Specialty Start Date End Date Ramos Fontanez PCP - General 12/31/05
--- OUTSIDE RECORDS SUMMARY | 2024-06-09 12:40 | XMS_ITS | Referral Summary ---
Author Organization [facility] Address [address] [place] [address] Care Team Providers Care Mail Clerks Supervisor Name Role Phone Unavailable Primary Care Provider Unavailabl e Source Comments Patient records contain information from all sites at [facility]. For routine questions regarding patient records, call [phone] during business hours, M-F 8:00 AM - 5:00 PM Central Time. Record requests for emergency care only can be directed to [phone] at any time.[facility] Allergies [...] Friends and Family Patient declined 02/19/2019 Attends Denominational Services Patient declined 01/29 Active Member of Clubs or Organizations Patient declined 02/19/2019 Attends Club or Organization Meetings Patient de clined 02/19/2019 Marital Status 02/19/2019 AUDIT-C Answer Date Recorded Frequency of Alcohol Consumption 2-3 times a wee k 02/19/2019 Average Number of Drinks 3 or 4 019 Frequency of Binge Drinking Never 01/29 [facility] [place] of Occupat ional Health - Occupational Stress [...] Comments Blood Pressure 110/60 08/28/2013 3:02 PM SURVEY ASSOCIATE Pulse 72 08/28/2013 3:02 PM SURVEY ASSOCIATE Temperature - - Respiratory Rate 18 08/28/2013 3:02 PM SURVEY ASSOCIATE Oxygen Saturation - - Inhaled Oxygen Concentration - - Weight 72.9 kg (160 lb 11.5 oz) 08/28/2013 3:02 PM SURVEY ASSOCIATE Height 160 cm (5' 2.99) 07/18/2013 7:54 AM SURVEY ASSOCIATE Body Mass Index 28.48 07/18/2013 7:54 AM SURVEY ASSOCIATE Plan of Treatment Not on file Procedures Procedure Name Priority Date/Time Associated Diagnosis Comments BI BREAST SCREENING BILATERAL WITH TOMOSYNTHESIS RAD - Routine (most inpatients and all outpatients) 07/22/2022 2:42 PM SURVEY ASSOCIATE Screening Mammogram Breast Cancer GLUCOSE, FASTING, S/P Routine 07/18/2013 9:11 AM SURVEY ASSOCIATE from Last 3 Months or Most Recently Relevant to Health Maintenance Results * BI Breast Screening Bilateral with Tomosynthesis (07/22/2022 2:42 PM SURVEY ASSOCIATE) Anatomical Region Laterality Modality Breast, Breast Imaging RST L OS, Breast Imaging ARZ LOS, Breast Imaging FLA LOS Bilateral Mammography 07/23/2022 8:56 AM SURVEY ASSOCIATE Impressions 07/23/2022 8:59 AM SURVEY ASSOCIATE Negative. RECOMMENDATION: ??Annual Screening Mammogram ASSESSMENT: ??BI-RADS: 1: Negative. Narrative 07/23/2022 8:59 AM SURVEY ASSOCIATE EXAM: ??BI BREAST SCREENING BILATERAL WITH TOMOSYNTHESIS [...] PROCEDURES * Glucose, Fasting (07/18/2013 9:11 AM SURVEY ASSOCIATE) Glucose, Fasting, S 93 70 - 99 MGDL POWERCHART Blood 07/18/2013 9:11 AM SURVEY ASSOCIATE Madonna Sanchez M.D. LAB BLOOD NON ADD-ON POWERCHART from Last 3 Months or Most Recently Relevant to Health Maintenance
--- OUTSIDE RECORDS SUMMARY | 2024-06-09 12:40 | XMS_ITS | Clinical Summary ---
Author Organization [facility] Address [address] [place] [address] Care Team Providers Care Briquette Machine Operator Helper Name Role Phone Unavailable Primary Care Provider Unavailabl e Source Comments Patient records contain information from all sites at [facility]. For routine questions regarding patient records, call [phone] during business hours, M-F 8:00 AM - 5:00 PM Central Time. Record requests for emergency care only can be directed to [phone] at any time.[facility] Allergies No known active allergies [...] Friends and Family Patient declined 02/19/2019 Attends Shinto Services Patient declined 01/29 Active Member of Clubs or Organizations Patient declined 02/19/2019 Attends Club or Organization Meetings Patient de clined 02/19/2019 Marital Status 02/19/2019 AUDIT-C Answer Date Recorded Frequency of Alcohol Consumption 2-3 times a wee k 02/19/2019 Average Number of Drinks 3 or 4 019 Frequency of Binge Drinking Never 01/29 [facility] of Occupat ional Health - Occupational Stress [...] Comments Blood Pressure 110/60 08/28/2013 3:02 PM FOOD TRUCK CATERER Pulse 72 08/28/2013 3:02 PM FOOD TRUCK CATERER Temperature - - Respiratory Rate 18 08/28/2013 3:02 PM FOOD TRUCK CATERER Oxygen Saturation - - Inhaled Oxygen Concentration - - Weight 72.9 kg (160 lb 11.5 oz) 08/28/2013 3:02 PM FOOD TRUCK CATERER Height 160 cm (5' 2.99) 07/18/2013 7:54 AM FOOD TRUCK CATERER Body Mass Index 28.48 07/18/2013 7:54 AM FOOD TRUCK CATERER Plan of Treatment Health Maintenance Due Date [...] inpatients and all outpatients) 07/22/2022 2:42 PM FOOD TRUCK CATERER Screening Mammogram Breast Cancer GLUCOSE, FASTING, S/P Routine 07/18/2013 9:11 AM FOOD TRUCK CATERER from Last 3 Months or Most Recently Relevant to Health Maintenance Results * BI Breast Screening Bilateral with Tomosynthesis (07/22/2022 2:42 PM FOOD TRUCK CATERER) Anatomical Region Laterality Modality Breast, Breast Imaging RST L OS, Breast Imaging ARZ LOS, Breast Imaging FLA LOS Bilateral Mammography 07/23/2022 8:56 AM FOOD TRUCK CATERER Impressions 07/23/2022 8:59 AM FOOD TRUCK CATERER Negative. RECOMMENDATION: ??Annual Screening Mammogram ASSESSMENT: ??BI-RADS: 1: Negative. Narrative 07/23/2022 8:59 AM FOOD TRUCK CATERER EXAM: ??BI BREAST SCREENING BILATERAL WITH TOMOSYNTHESIS [...] PROCEDURES * Glucose, Fasting (07/18/2013 9:11 AM FOOD TRUCK CATERER) Glucose, Fasting, S 93 70 - 99 MGDL POWERCHART Blood 07/18/2013 9:11 AM FOOD TRUCK CATERER Madonna Sanchez M.D. LAB BLOOD NON ADD-ON POWERCHART from Last 3 Months or Most Recently Relevant to Health Maintenance
--- OUTSIDE RECORDS SUMMARY | 2024-06-09 12:40 | XMS_ITS | Encounter Summary ---
Author Organization [facility] Address [address] [place] [address] Care Team Providers Care Cw Operator Name Role Phone HuseyinRamosRainier Primary Care Provider Unavaila ble Encounter Details Date Type Department Care Team (Late st Contact Info) Description 06/23/2008 [facility] [address] [place] [phone] Linnea Rutherford [address] [place] [phone] Social History Tobacco Use Types Packs/Day Years [...] on filedocumented in this encounter Care Teams Cw Operator Relationship Specialty Start Date End Date Edie FontanezRainier PCP - General 12/31/05 documented as of this encounter
--- OUTSIDE RECORDS SUMMARY | 2024-06-09 12:40 | XMS_ITS | Clinical Summary ---
Author Organization [facility] Address [address] [place] [address] Care Team Providers Care System Architect Name Role Phone HuseyinRamosFrenchmans Bay[place] Primary Care Provider Unavaila ble Allergies No [...] Comments Blood Pressure 136/83 09/01/2019 9:42 AM RN ENTEROSTOMAL Pulse 71 09/01/2019 9:42 AM RN ENTEROSTOMAL Temperature 36.6 ??C (97.9 ??F) 09/01/2019 9:42 AM CS T Respiratory Rate 16 09/01/2019 9:42 AM RN ENTEROSTOMAL Oxygen Saturation 98% 03/16/2019 10:00 AM CDT Inhaled Oxygen Concentration - - Weight 74.4 kg (164 lb) 09/01/2019 9:42 AM RN ENTEROSTOMAL Height 158.8 cm (5' 2.5) 03/16/2019 10:00 AM CD T Body Mass Index 29.52 03/16/2019 10:00 AM CDT Plan of Treatment Not on file Care Teams System Architect Relationship Specialty Start Date End Date Ramos Fontanez PCP - General 12/31/05
--- OUTSIDE RECORDS SUMMARY | 2024-06-09 12:40 | XMS_ITS | Encounter Summary ---
Author Organization [facility] Address [address] [place] [address] Care Team Providers Care Hotel Or Motel Receptionist Name Role Phone [place] Primary Care Provider Unavaila ble Encounter Details Date Type Department Care Team (Late st Contact Info) Description 06/14/2008 [facility] [place] [facility] [address] [place] [phone] Linnea Rutherford [address] [place] [phone] Social History Tobacco Use Types Packs/Day Years [...] on filedocumented in this encounter Care Teams Hotel Or Motel Receptionist Relationship Specialty Start Date End Date Edie FontanezNew Orleans PCP - General 12/31/05 documented as of this encounter
--- OUTSIDE RECORDS SUMMARY | 2024-06-09 12:40 | XMS_ITS ---
Author Organization [facility] Address [address] [place] [address] Care Team Providers Care Cupola Liner Name Role Phone Unavailable Unavailable Unavailable Surgery Details Not on file Complications Check Surgery Details section. Procedure Estimated Blood Loss Check Surgery Details section. Procedure Findings Check Surgery Details section. Procedure Specimens Taken Check Surgery Details section.
== END 2024-06-07 14:08 | disposition home or self-care (01) ==
LOC: NFLDREF 06-09 12:37
PROVIDERS: PCP Family Medicine; Referring Provider Family Medicine; Visit Provider Family Medicine
DX: E55.9 Vitamin D deficiency, unspecified (principal); E05.90 Thyrotoxicosis, unspecified without thyrotoxic crisis or storm; E78.5 Hyperlipidemia, unspecified; M81.0 Age-related osteoporosis without current pathological fracture; R03.0 Elevated blood-pressure reading, without diagnosis of hypertension
CPT/HCPCS: 80053; 80061; 82306; 84443

== ENCOUNTER 2024-06-16 10:17 | Outpatient (RCR) | payer MEDICARE, SELFPAY ==
--- NOTE | 2024-06-15 09:45 | URNOTE ---
Prior auth is not required for Reclast ([id number]) per [facility]'s Medical Injectable drug list.
[2024-06-16 10:31] VITALS: BP 99/66; PULSE 77; RESP 16; TEMP 36.3; O2SAT 100
[2024-06-16] MEDS: ZOLEDRONIC ACID 5 mg/100 ml 100 ML 400 MG IVPB (12:01)
[2024-06-16] MEDS: SODIUM CHLORIDE 0.9 % (FLUSH) 10 ML SYRINGE IVF (12:29)
== END 2024-12-13 23:59 | disposition home or self-care (01) ==
LOC: CCIC 10:17
PROVIDERS: PCP Family Medicine; Visit Provider Clinical Nurse Specialist
DX: M81.0 Age-related osteoporosis without current pathological fracture (principal)
CPT/HCPCS: 96374; J3489

== ENCOUNTER 2024-07-04 09:51 | Outpatient (CLI) | payer MEDICARE, SELFPAY ==
--- OUTSIDE RECORDS SUMMARY | 2024-07-04 09:54 | XMS_ITS | Encounter Summary ---
Author Organization [facility] Address [address] [place] [address] Care Team Providers Care Signal Person Name Role Phone Ramos Fontanez Primary Care Provider Shericea ble Encounter Details Date Type Department Care Team (Late st Contact Info) Description 06/23/2008 [facility] in [facility] [address] [place] [phone] Linnea Rutherford [address] [place] [phone] Social History Tobacco Use Types Packs/Day Years Used Date Smoking Tobacco: Former Smokeless Tobacco: Never Alcohol Use Standard Drinks/Week Comments Yes 0 (1 standard drink = 0.6 oz pur e alcohol) once a week Comments No Sex and Gender Information Value Date Recorded Sex Assigned at Not on file Legal Sex Female 3:31 AM PATTERNMAKER Gender Identity Not on file Sexual Orientation Not on file documented as of this encounter Plan of Treatment Not on file documented as of this encounter Visit Diagnoses Not on filedocumented in this encounter Care Teams Signal Person Relationship Specialty Start Date End Date Ramos Fontanez PCP - General 12/31/05 documented as of this encounter
--- OUTSIDE RECORDS SUMMARY | 2024-07-04 09:54 | XMS_ITS | Clinical Summary ---
Author Organization [facility] Address [address] [place] [address] Care Team Providers Care Quality Improvement Coordinator Name Role Phone HuseyinMonika Primary Care Provider Unavaila ble Allergies No known active allergies Medications alendronate (FOSAMAX) 70 MG tablet Take 70 [...] School Help Needed Not on file 05/31 Comments No Sex and Gender Information Value Date Recorded Sex Assigned at Not on file Legal Sex Female 3:31 AM SLAB POLISHER Gender Identity Not on file Sexual Orientation Not on file Last Filed Vital Signs Vital Sign Reading Time Taken Comments Blood Pressure 136/83 09/01/2019 9:42 AM SLAB POLISHER Pulse 71 09/01/2019 9:42 AM SLAB POLISHER Temperature 36.6 ??C (97.9 ??F) 09/01/2019 9:42 AM CS T Respiratory Rate 16 09/01/2019 9:42 AM SLAB POLISHER Oxygen Saturation 98% 03/16/2019 10:00 AM CDT Inhaled Oxygen Concentration - - Weight 74.4 kg (164 lb) 09/01/2019 9:42 AM SLAB POLISHER Height 158.8 cm (5' 2.5) 03/16/2019 10:00 AM CD T Body Mass Index 29.52 03/16/2019 10:00 AM CDT Plan of Treatment Not on file Insurance [facility] MEDICARE Care Teams Quality Improvement Coordinator Relationship Specialty Start Date End Date Monika Fontanez PCP - General 12/31/05
--- OUTSIDE RECORDS SUMMARY | 2024-07-04 09:54 | XMS_ITS | Clinical Summary ---
Author Organization [facility] Address [address] [place] [address]. [place] [address] Phone Care Team Providers Care Computer Education Professor Name Role Phone Francine Perkins MD Primary Care Provider [phone] Source Comments [employer] is fully rolled out on [employer]. Last update 02/01/09.[facility] Encounters Date Type Department Care Team Description 05/22/2024 Orders Only [facility] Radiology Department [facility] [address] [place] [address] Provider, Outside Referral of patient (Primary Dx) from Last 3 Months Social History Tobacco Use Types Packs/Day Years Used Date Smoking Tobacco: Never Assessed Comments Unknown Sex and Gender Information Value Date Recorded Sex Assigned at Not on file Legal Sex Female 4:38 PM CDT Gender Identity Not on file Sexual Orientation Not on file Plan of Treatment Upcoming Encounters Date Type Department Care Team (Late st Contact Info) Description 07/06/2024 9:30 AM DIRECTOR SPECIAL EDUCATION [facility] [address] [place] [address] Óscar Gordon MD [address] [place] [address] Scheduled Discharge Disposition: Discharged to home or self care Health Maintenance Due Date Last Done Comments CT Colonography 1952 Colonoscopy 1952 Colorectal Cancer Screening 1952 Dental Oral Exam 1952 Dental Prophylaxis 1952 Dental X-Ray: Bitewings 1952 FIT/Cologuard 1952 Hepatitis C Screening 1952 Sigmoidoscopy 1952 iFOB/FIT 1952 Lipid Screening 1953 Periodontal Maintenance 1966 Medicare Annual Wellness 1970 PREVENTATIVE VISIT 1970 HEALTH MAINTENANCE PROTOCOL 1971 Osteoporosis Screening (Dexa Scan) 2017 Imm: Pneumonia greater than 65 years (2 of 2 - PCV) 09/07/2019 09/07/2018 Imm: DTaP/Tdap (2 - Td or Tdap) 07/18/2023 07/18/2013, 07/18/2013 Imm: COVID-19 () 04/30/2024 07/18/2021, 11/01/2020, 10/04/2020 Imm: Flu (#1) 04/30/2024 05/05/2023, 05/31, 09/07/2018, Additional history exists Breast Cancer Screening 07/22/2024 07/22/2022, 07/18 Imm: Zoster Completed 09/15/2021, 06/06/2021 Imm: HPV Aged Out No longer eligi ble based on patient's age to complete this topic Imm: HepA Aged Out No longer eligi ble based on patient's age to complete this topic Imm: HepB Aged Out No longer eligi ble based on patient's age to complete this topic Imm: Hib Aged Out No longer eligi ble based on patient's age to complete this topic Imm: Meningitis Aged Out No longer el igible based on patient's age to complete this topic Procedures Procedure Name Priority Date/Time Associated Diagnosis Comments MR SPINE OUTSIDE FILMS Routine 05/15/2024 3:23 PM CDT Referral of patient MR SPINE OUTSIDE FILMS Routine 05/09/2024 2:40 PM CDT Referral of patient MR SPINE OUTSIDE FILMS Routine 05/09/2024 2:40 PM CDT Referral of patient XR SPINE OUTSIDE FILMS Routine 04/13/2024 8:02 AM CDT Referral of patient from Last 3 Months Results * MR SPINE OUTSIDE FILMS (05/15/2024 3:23 PM CDT) Only the most recent of3 resultswithin the time period is included. Narrative User, [id number] - 05/22/2024 1:39 PM CDT Outside Film Only us Outside Provider RAD OUTSIDE FILMS Final Result * XR SPINE OUTSIDE FILMS (04/13/2024 8:02 AM CDT) Narrative User, [id number] - 05/22/2024 1:41 PM CDT Outside Film Only us Outside Provider RAD OUTSIDE FILMS Final Result from Last [address] [facility] Care Teams Computer Education Professor Relationship Specialty Start Date End Date Francine Perkins MD [address] [place] [address] PCP - General 05/22/24
--- OUTSIDE RECORDS SUMMARY | 2024-07-04 09:54 | XMS_ITS | Encounter Summary ---
Author Organization [facility] Address [address] [place] [address] Care Team Providers Care Technical Administrator Name Role Phone Ramos Fontanez Primary Care Provider Shericea ble Encounter Details Date Type Department Care Team (Late st Contact Info) Description 06/14/2008 [facility] in [facility] [address] [place] [phone] Linnea Rutherford [address] [place] [phone] Social History Tobacco Use Types Packs/Day Years Used Date Smoking Tobacco: Former Smokeless Tobacco: Never Alcohol Use Standard Drinks/Week Comments Yes 0 (1 standard drink = 0.6 oz pur e alcohol) once a week Comments No Sex and Gender Information Value Date Recorded Sex Assigned at Not on file Legal Sex Female 3:31 AM LABOR RELATIONS OR PERSONNEL NEGOTIATOR Gender Identity Not on file Sexual Orientation Not on file documented as of this encounter Plan of Treatment Not on file documented as of this encounter Visit Diagnoses Not on filedocumented in this encounter Care Teams Technical Administrator Relationship Specialty Start Date End Date Ramos Fontanez PCP - General 12/31/05 documented as of this encounter
--- OUTSIDE RECORDS SUMMARY | 2024-07-04 09:54 | XMS_ITS | Clinical Summary ---
Author Organization [facility] Address [address] [place] [address] Care Team Providers Care Inker Machine Name Role Phone Unavailable Primary Care Provider Unavailabl e Source Comments Patient records contain information from all sites at [facility]. For routine questions regarding patient records, call [phone] during business hours, M-F 8:00 AM - 5:00 PM Central Time. Record requests for emergency care only can be directed to [phone] at any time.[facility] Allergies No known active allergies Immunizations [...] 019 Frequency of Binge Drinking Never 01/29 [facility] [place] of Occupat ional Health - Occupational Stress [...] degree you have received? 12th grade 02/19/2019 Comments Unknown Sex and Gender Information Value Date Recorded Sex Assigned at Not on file Legal Sex Female 5:32 AM AUGER OPERATOR Gender Identity Not on file Sexual Orientation Not on file Last Filed Vital Signs Vital Sign Reading Time Taken Comments Blood Pressure 110/60 08/28/2013 3:02 PM AUGER OPERATOR Pulse 72 08/28/2013 3:02 PM AUGER OPERATOR Temperature - - Respiratory Rate 18 08/28/2013 3:02 PM AUGER OPERATOR Oxygen Saturation - - Inhaled Oxygen Concentration - - Weight 72.9 kg (160 lb 11.5 oz) 08/28/2013 3:02 PM AUGER OPERATOR Height 160 cm (5' 2.99) 07/18/2013 7:54 AM AUGER OPERATOR Body Mass Index 28.48 07/18/2013 7:54 AM AUGER OPERATOR Plan of Treatment Health Maintenance Due Date Last Done Comments Bone Density Scan (Osteoporosis Screen) 1952 CT Colonography 1952 Cologuard 1952 FIT 1952 Hepatitis C Screening 1952 Colonoscopy 12/17/2015 12/16/2005 Colorectal Cancer Screening 12/17/2015 Fasting Glucose for Diabetes Screening 07/18/2016 07/18/2013, 02/23/2012 DTaP,Tdap,and Td Vaccines (2 - Td or Tdap) 07/18/2023 07/18/2013, 07/18/2013 Mammogram 07/22/2023 07/22/2022, 06/30, 07/11/2020, Additional history exists Depression Screening (Annual PHQ-2) 08/30/2023 Fall Risk Screen (Annual) 08/30/2023 COVID-19 Vaccine ( season) 2024 07/18/2021, 11/01/2020, 10/04/2020 Influenza Vaccine (#1) 2024 3, 06/19/2022, 06/26/2020, Additional history exists Pneumococcal vaccine (65+ years) Completed 09/07/2018, 09/16/2017 Zoster Vaccines Completed 09/15/2021, 10/03/2021, 02/19/2015 IPV Vaccines Aged Out No longer eligi ble based on patient's age to complete this topic Procedures Procedure Name Priority Date/Time Associated Diagnosis Comments BI BREAST SCREENING BILATERAL WITH TOMOSYNTHESIS RAD - Routine (most inpatients and all outpatients) 07/22/2022 2:42 PM AUGER OPERATOR Screening Mammogram Breast Cancer GLUCOSE, FASTING, S/P Routine 07/18/2013 9:11 AM AUGER OPERATOR from Last 3 Months or Most Recently Relevant to Health Maintenance Results * BI Breast Screening Bilateral with Tomosynthesis (07/22/2022 2:42 PM AUGER OPERATOR) Anatomical Region Laterality Modality Breast, Breast Imaging RST L OS, Breast Imaging ARZ LOS, Breast Imaging FLA LOS Bilateral Mammography 07/23/2022 8:56 AM AUGER OPERATOR Impressions 07/23/2022 8:59 AM AUGER OPERATOR Negative. RECOMMENDATION: ??Annual Screening Mammogram ASSESSMENT: ??BI-RADS: 1: Negative. Narrative 07/23/2022 8:59 AM AUGER OPERATOR EXAM: ??BI BREAST SCREENING BILATERAL WITH [...] Annual Screening Mammogram ASSESSMENT: BI-RADS: 1: Negative. us Anat Berumen M.D. IMG BI PROCEDURES Final Resul t * Glucose, Fasting (07/18/2013 9:11 AM AUGER OPERATOR) Glucose, Fasting, S 93 70 - 99 MGDL POWERCHART Blood 07/18/2013 9:11 AM AUGER OPERATOR us Madonna Sanchez M.D. LAB BLOOD NON ADD -ON Final Result POWERCHART from Last 3 Months or Most Recently Relevant to Health Maintenance Insurance [facility]
--- OUTSIDE RECORDS SUMMARY | 2024-07-04 09:54 | XMS_ITS ---
Author Organization [facility] Address [address] [place] [address] Care Team Providers Care Third Cook Name Role Phone Unavailable Unavailable Unavailable Surgery Details Not on file Complications Check Surgery Details section. Procedure Estimated Blood Loss Check Surgery Details section. Procedure Findings Check Surgery Details section. Procedure Specimens Taken Check Surgery Details section.
--- OUTSIDE RECORDS SUMMARY | 2024-07-04 09:54 | XMS_ITS | Referral Summary ---
Author Organization [facility] Address [address] [place] [address] Care Team Providers Care Switch Coupler Name Role Phone HuseyinMonika Primary Care Provider [...] on file Legal Sex Female 3:31 AM TAWER Gender Identity Not on file Sexual Orientation Not on file Last Filed Vital Signs Vital Sign Reading Time Taken Comments Blood Pressure 136/83 09/01/2019 9:42 AM TAWER Pulse 71 09/01/2019 9:42 AM TAWER Temperature 36.6 ??C (97.9 ??F) 09/01/2019 9:42 AM CS T Respiratory Rate 16 09/01/2019 9:42 AM TAWER Oxygen Saturation 98% 03/16/2019 10:00 AM CDT Inhaled Oxygen Concentration - - Weight 74.4 kg (164 lb) 09/01/2019 9:42 AM TAWER Height 158.8 cm (5' 2.5) 03/16/2019 10:00 AM CD T Body Mass Index 29.52 03/16/2019 10:00 AM CDT Plan of Treatment Not on file Insurance [facility] MEDICARE Care Teams Switch Coupler Relationship Specialty Start Date End Date Monika Fontanez PCP - General 12/31/05
--- OUTSIDE RECORDS SUMMARY | 2024-07-04 09:54 | XMS_ITS | Referral Summary ---
Author Organization [facility] Address [address] [place] [address]. [place] [address] Phone Care Team Providers Care Medical Claims Examiner Name Role Phone Francine Perkins MD Primary Care Provider [phone] Source Comments [employer] is fully rolled out on [employer]. Last update 02/01/09.[facility] Encounters Date Type Department Care Team Description 05/22/2024 Orders Only [facility] Film Room [facility] Radiology Department [facility] [address] [place] [address] Provider, Outside Referral of patient (Primary Dx) [...] st Contact Info) Description 07/06/2024 9:30 AM PATTERN CHART WRITER [facility] [address] [place] [address] Óscar Gordon MD [address] [place] [address] Scheduled Discharge Disposition: Discharged to home or self care Procedures Procedure Name Priority Date/Time Associated Diagnosis [...] the time period is included. Narrative User, [id number] - 05/22/2024 1:39 PM CDT Outside Film Only us Outside Provider RAD OUTSIDE FILMS Final Result * XR SPINE OUTSIDE FILMS (04/13/2024 8:02 AM CDT) Narrative User, [id number] - 05/22/2024 1:41 PM CDT Outside Film Only us Outside Provider RAD OUTSIDE FILMS Final Result from Last 3 Months Insurance [employer] Care Teams Medical Claims Examiner Relationship Specialty Start Date End Date Francine Perkins MD [address] [place] [address] PCP - General 05/22/24
--- OUTSIDE RECORDS SUMMARY | 2024-07-04 09:54 | XMS_ITS | Referral Summary ---
Author Organization [facility] Address [address] [place] [address] Care Team Providers Care Aviation Electrician Name Role Phone Unavailable Primary Care Provider Unavailabl e Source Comments Patient records contain information from all sites at [facility]. For routine questions regarding patient records, call [phone] during business hours, M-F 8:00 AM - 5:00 PM Central Time. Record requests for emergency care only can be directed to [phone] at any time.[facility] Allergies No known active allergies Immunizations Name [...] Friends and Family Patient declined 02/19/2019 Attends Caodaism Services Patient declined 01/29 Active Member of Clubs or Organizations Patient declined 02/19/2019 Attends Club or Organization Meetings Patient de clined 02/19/2019 Marital Status 02/19/2019 AUDIT-C Answer Date Recorded Frequency of Alcohol Consumption 2-3 times a wee k 02/19/2019 Average Number of Drinks 3 or 4 019 Frequency of Binge Drinking Never 01/29 [facility] [place] [facility] - Occupational Stress [...] on file Legal Sex Female 5:32 AM CABLE INSTALLATION TECHNICIAN Gender Identity Not on file Sexual Orientation Not on file Last Filed Vital Signs Vital Sign Reading Time Taken Comments Blood Pressure 110/60 08/28/2013 3:02 PM CABLE INSTALLATION TECHNICIAN Pulse 72 08/28/2013 3:02 PM CABLE INSTALLATION TECHNICIAN Temperature - - Respiratory Rate 18 08/28/2013 3:02 PM CABLE INSTALLATION TECHNICIAN Oxygen Saturation - - Inhaled Oxygen Concentration - - Weight 72.9 kg (160 lb 11.5 oz) 08/28/2013 3:02 PM CABLE INSTALLATION TECHNICIAN Height 160 cm (5' 2.99) 07/18/2013 7:54 AM CABLE INSTALLATION TECHNICIAN Body Mass Index 28.48 07/18/2013 7:54 AM CABLE INSTALLATION TECHNICIAN Plan of Treatment Not on file Procedures Procedure Name Priority Date/Time Associated Diagnosis Comments BI BREAST SCREENING BILATERAL WITH TOMOSYNTHESIS RAD - Routine (most inpatients and all outpatients) 07/22/2022 2:42 PM CABLE INSTALLATION TECHNICIAN Screening Mammogram Breast Cancer GLUCOSE, FASTING, S/P Routine 07/18/2013 9:11 AM CABLE INSTALLATION TECHNICIAN from Last 3 Months or Most Recently Relevant to Health Maintenance Results * BI Breast Screening Bilateral with Tomosynthesis (07/22/2022 2:42 PM CABLE INSTALLATION TECHNICIAN) Anatomical Region Laterality Modality Breast, Breast Imaging RST L OS, Breast Imaging ARZ LOS, Breast Imaging FLA LOS Bilateral Mammography 07/23/2022 8:56 AM CABLE INSTALLATION TECHNICIAN Impressions 07/23/2022 8:59 AM CABLE INSTALLATION TECHNICIAN Negative. RECOMMENDATION: ??Annual Screening Mammogram ASSESSMENT: ??BI-RADS: 1: Negative. Narrative 07/23/2022 8:59 AM CABLE INSTALLATION TECHNICIAN EXAM: ??BI BREAST SCREENING BILATERAL WITH TOMOSYNTHESIS [...] Negative. Anat Berumen M.D. IMG BI PROCEDURES Final Resul t * Glucose, Fasting (07/18/2013 9:11 AM CABLE INSTALLATION TECHNICIAN) Glucose, Fasting, S 93 70 - 99 MGDL POWERCHART Blood 07/18/2013 9:11 AM CABLE INSTALLATION TECHNICIAN Madonna Sanchez M.D. LAB BLOOD NON ADD -ON Final Result POWERCHART from Last 3 Months or Most Recently Relevant to Health Maintenance Insurance [facility]
--- OUTSIDE RECORDS SUMMARY | 2024-07-04 09:54 | XMS_ITS | Encounter Summary ---
Author Organization [facility] [place] Address [address] [place] [address] Phone Care Team Providers Care Tobacco Stripping Machine Operator Name Role Phone Francine Perkins MD Primary Care Provider [phone] Encounter Details Date Type Department Care Team (Late Contact Info) Description 05/22/2024 Orders Only [facility] [place] [facility] Radiology Department [facility] [address] [place] [phone] Provider, [place] [address] Referral of patient (Primary Dx) Social History Tobacco Use Types Packs/Day Years Used Date Smoking Tobacco: Never Assessed Comments Unknown Sex and Gender Information Value Date Recorded Sex Assigned at Not on file Legal Sex Female 4:38 PM CDT Gender Identity Not on file Sexual Orientation Not on file documented as of this encounter Plan of Treatment Upcoming Encounters Date Type Department Care Team (Late Contact Info) Description 07/06/2024 9:30 AM RADIO FREQUENCY TECHNICIAN [facility] [address] [place] [phone] Óscar Gordon MD [address] [place] [phone] Scheduled Discharge Disposition: Discharged to home or self care documented as of this encounter Results * MR SPINE OUTSIDE FILMS (05/15/2024 3:23 PM CDT) Narrative User, [id number]-[id number] - 05/22/2024 1:39 PM CDT Outside Film Only us Outside Provider RAD OUTSIDE FILMS Final Result * MR SPINE OUTSIDE FILMS (05/09/2024 2:40 PM CDT) Kedar User, Peyr-Yfgpdu-Zvuzafngm - 05/22/2024 1:40 PM CDT Outside Film Only us Outside Provider RAD OUTSIDE FILMS Final Result * MR SPINE OUTSIDE FILMS (05/09/2024 2:40 PM CDT) Narrative User, [id number] - 05/22/2024 1:40 PM CDT Outside Film Only us Outside Provider RAD OUTSIDE FILMS Final Result * XR SPINE OUTSIDE FILMS (04/13/2024 8:02 AM CDT) Kedar User, [id number]-Bmmlvf-Ksgwvzbvm - 05/22/2024 1:41 PM CDT Outside Film Only us Outside Provider RAD OUTSIDE FILMS Final Result * MR SPINE OUTSIDE FILMS (10/19/2023 7:34 AM RADIO FREQUENCY TECHNICIAN) Narrative User, [id number]-[id number] - 05/22/2024 1:39 PM CDT Outside Film Only us Outside Provider RAD OUTSIDE FILMS Final Result * XR SPINE OUTSIDE FILMS (10/14/2023 8:50 AM RADIO FREQUENCY TECHNICIAN) Kedar User, Knrg-[id number] - 05/22/2024 1:41 PM CDT Outside Film Only us Outside Provider RAD OUTSIDE FILMS Final Result documented in this encounter Visit Diagnoses Diagnosis Referral of patient- Primary Referral of patient without examination or treatment documented in this encounter Care Teams Tobacco Stripping Machine Operator Relationship Specialty Start Date End Date Francine Perkins MD [address] [place] [id number] PCP - General 05/22/24 documented as of this encounter
== END 2024-07-04 09:52 | disposition home or self-care (01) ==
LOC: INJ CL 09:51
PROVIDERS: PCP Family Medicine; Visit Provider Family Medicine
DX: M53.3 Sacrococcygeal disorders, not elsewhere classified (principal)
CPT/HCPCS: 27096; J0702; Q9966

== ENCOUNTER 2024-07-24 14:30 | Outpatient (RCR) | payer MEDICARE, SELFPAY ==
--- NOTE | 2024-05-18 15:43 | PT.OPEX ---
PT [place] Outpatient Eval PT [facility] Outpatient Eval Start: 05/02/24 14:25 Freq: Status: Active Protocol: Document 05/18/24 07:14 MLS (Rec: 05/18/24 15:41 MLS [id number]) E-signed By Arlette Keyes DPT Physical Therapy Outpatient Evaluation Insurance Information Recert Due Date 08/15/24 Insurance Name Medicare B,[place] Medical Diagnosis M54.50 LBP Treating Diagnosis LBP - right worse than left stretching and strengthening program Referring MD Dr. Cook Subjective Subjective Patient is a 73 year old female who presents to physical therapy with signs and symptoms consistent with low back pain. She states that it started in March and she is unsure what she did. It may have started from getting in the boat or sitting on futons at the cabin. She states that she did an xray and then a MRI. She states that she has a fracture of T12 . She states that they also found a nodule in her MRI. She also just had lab work done today. She is waiting on results. She also has to do a urine sample. She states that she she stubbed her toe in March and it is still swollen. She reports that her entire foot swelled up and she three xrays that all came back negative. She is going to set up an appointment with a registered land surveyor. She also had a UTI at that time. She reports that she does not have numbness and tingling in her legs but they do ache. She has more pain in her right low back than her left and it is worse in the morning. She states that it is always there as an ache, but it is not sharp. She states that she tries to stretch. She states that she saw a chiropractor 6 times but it did not help. Aggravating factors include: sitting, sitting up in bed, bending down, standing for a long time, walking, stairs. Alleviating factors include: not at this time. She also has to get a right reverse shoulder replacement at some point. Significant past medical history includes arthritis, osteoporosis, left foot injury. Patient would like to achieve less pain through physical therapy sessions. 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 Objective Other/Pertinent Objective Posture Assessment: Decreased lordosis LUMBAR ROM Flexion: mid horan with pain, repeated flexion: worsening pain Extension: min past neutral repeated ext: no pain Right Sidebend: mid thigh with pain Left Sidebend: mid thigh with pain Right Rotation: 75% Left Rotation: 75% LE MMT Hip flexion: R 4/5 L 4/5 Hip Extension: R 4/5 L 4/5 Hip abduction: R 4/5 L 4/5 Knee extension: R 4/5 L 4/5 Knee Flexion: R 4/5 L 4/5 Dorsiflexion/heel walk: R 4/5 L 4/5 Plantarflexion/toe walk: unable due to left toe JOINT MOBILITY/PALPATION Moderate tightness and tenderness with palpation of right more than left QL and Es today SPECIAL TESTS -Quadrant test: negative -Single leg stance: negative for pain -Slump test: negative -Straight leg raise: negative -Crossed straight leg raise: negative SI/HIP -IVAN: negative -FADIR: negative TX: Access Code: [email or web address] URL: [email or web address] Ask The Doctor/ Date: 05/18/2024 Prepared by: Arlette Keyes Exercises - Supine Lower Trunk Rotation - 1 x daily - 7 x weekly - 3 sets - 10 reps - Supine Single Knee to Chest Stretch - 1 x daily - 7 x weekly - 3 sets - 10 reps - Supine Figure 4 Piriformis Stretch - 1 x daily - 7 x weekly - 3 sets - 10 reps Functional Test Performed & Score 16/50 Modified Oswestry Low Back Pain Questionnaire Assessment Assessment/Impression Pt is a 73 year old female who presents with concerns of low back pain. Patient also has notable objective findings including limited ROM, tenderness to palpation, and decreased strength which are also likely contributing to the problem. Patient is a good candidate for skilled therapy to target deficits described above. Skilled PT intervention is necessary for use of therapeutic exercise manual therapy, neuromuscular re- education, gait training, and therapeutic activity. Functional impairments include difficulty with: standing, walking, sleeping, driving, exercising, and ADLs. See appropriate sections of PT eval for complete list of goals and POC. D/C plan and criteria is for pt to achieve the goals as listed below or until max rehab potential is met. Pt was agreeable with plan of care and goals established. Primary Functional Limitations standing walking driving exercising ADLs sleeping Plan of Care Rehabilitation Potential Good Physical Therapy Goals Within 10-12 weeks: 1.Pt will demonstrate independence in performance of home exercise program with the use of video and/or handouts in order to optimize functional mobility and reduce risk for re-injury. 2.Pt will demonstrate consistent HEP compliance to ensure progress in reaching established goals during course of care. 3.Patient will be able to grocery shop for up to 30 minutes without pain. 4.Patient will report pain levels <2/10 with all activities in order to improve functional mobility at home, work and during functional leisure activities. 5.Patient is able to sleep without waking more than one time due to pain in a 6-8 hour time frame. 6.Patient will be able to walk up to one mile without pain. 7.Patient will be able to bend and lift household items from the floor to shoulder height to perform ADLs without pain. 8.Pt will be able to ascend/ descend 1 flight of stairs in order to perform ADLs pain free. 9.Pt will exhibit 5 pt improvement in Modified Oswestry Outcome measure to demonstrate functional improvement and progress towards goals Coordination/Communication With Referral Source Treatment Plan/Direct Interventions Joint Mobilization,Manual Therapy,Neuromuscular Re-ed, Therapeutic Activities, Therapeutic Exercises Patient Will Be Discharged From Therapy Independently Progressing Evaluation Billing Untimed Code Treatment Minutes 30 Complexity Low Certification Information Provider Signature Required Yes Provider Signature Shows Agreement With POC & Medical Necessity Physician NPI Number Write NPI# Here Physician Comment/Change : Physician Signature & Date Requested Please Sign/Date Here
== END 2024-08-15 13:11 | disposition home or self-care (01) ==
PROVIDERS: PCP Family Medicine; Visit Provider Family Medicine
DX: M54.50 Low back pain, unspecified (principal); Z51.89 Encounter for other specified aftercare
CPT/HCPCS: 86140; 97110; 97140; 97161

== ENCOUNTER 2024-10-16 08:53 | Outpatient (CLI) | payer MEDICARE, SELFPAY ==
--- NOTE | 2024-10-16 09:15 | CRLHL7_ITS ---
For Patients: As a result of the Century Cures Act, medical imaging exams and procedure reports are released immediately into your electronic medical record. You may view this report before your referring provider. If you have questions, please contact your health care provider. INDICATION: Abnormal findings on previous MRI. COMPARISON: 05/15/2024. TECHNIQUE: Sagittal T1, T2, and STIR sequences. Axial T1 and T2 weighted sequences. Post gadolinium T1 weighted sequences. FINDINGS: Stable grade 1 anterolisthesis of L4 on L5 measures approximately 5 mm. Otherwise, normal alignment. No fractures. Compared to the previous exam, interval decreased marrow edema of the articular processes of the L4-5 facet joints. Surrounding soft tissue edema/inflammation as also decreased. Similarly, interval decreased edema of the bilateral sacral ala. There remains subtle cortical irregularity as seen on axial imaging which may be due to old sacral insufficiency fractures (series 6, image 45). Compared to the previous exam, stable enhancing intradural extramedullary nodules along the cauda equina nerve roots at the level of L2-3 measuring approximately 1 x 1 cm and 0.7 x 0.6 cm (best seen on series 8, image 9). Lumbar spondylosis. Multilevel disc degeneration. T11-12: Disc degeneration. Posterior disc bulge. No spinal canal neural foraminal narrowing. Stable mild loss of height of the T12 vertebral body with a Schmorl`s node at superior endplate. T12-L1 L1-2: Mild disc degeneration. No spinal canal neural foraminal narrowing. L2-3: Disc degeneration and diffuse disc bulge. Mild narrowing of spinal canal. No neural foraminal narrowing. L3-4: Disc degeneration and diffuse disc bulge eccentric to the right. Mild narrowing of the spinal canal. No neural foraminal narrowing. L4-5: Grade 1 anterolisthesis. Disc degeneration. Mixed Modic type 1 and 2 endplate changes. Diffuse disc bulge eccentric to the right. Mild narrowing of spinal canal. Oblique orientation of bilateral foramina with moderate right and mild left neural foraminal narrowing. Moderate facet arthropathy. L5-S1: Posterior disc bulge. No narrowing of spinal canal. No impingement of the traversing S1 nerve roots. Mild narrowing of the bilateral foramina. Mild right and moderate left facet arthropathy. Degenerative changes of the SI joints. Small right renal cyst. IMPRESSION: 1. Stable grade 1 anterolisthesis of L4 on L5. Otherwise normal alignment. No fractures 2. Interval decreased marrow edema of the articular processes of the L4-5 facet joints. Findings again may be secondary to stress reaction or inflammation from facet arthritis. 3. Similarly, decreased edema of the partially visualized sacral ala. Better seen on the current exam is subtle cortical irregularity of the ventral aspect of the sacral ala which may be secondary to old sacral insufficiency fractures. 4. Stable size and appearance of enhancing intradural extramedullary nodules at the level of L2-3 which may represent nerve sheath tumors. 5. Lumbar spondylosis 6. At L2-3, mild narrowing of the spinal canal 7. At L3-4, mild narrowing of the spinal canal 8. At L4-5, mild narrowing of the spinal canal. Moderate right and mild left neural foraminal narrowing. 9. At L5-S1, mild narrowing of the bilateral neural foramina. Dictated by Colton Contreras MD @ 10/16/2024 10:45:09 AM (Electronically Signed)
== END 2024-10-16 08:54 | disposition home or self-care (01) ==
LOC: MRI 08:53
PROVIDERS: PCP Family Medicine; Visit Provider Family Medicine
DX: D49.2 Neoplasm of unspecified behavior of bone, soft tissue, and skin (principal); M47.896 Other spondylosis, lumbar region; M51.26 Other intervertebral disc displacement, lumbar region; M51.27 Other intervertebral disc displacement, lumbosacral region; M54.50 Low back pain, unspecified; R94.8 Abnormal results of function studies of other organs and systems
CPT/HCPCS: 72158; A9575

== ENCOUNTER 2024-10-17 14:29 | Outpatient (CLI) | payer MEDICARE, SELFPAY | END 2024-10-17 14:30 | disposition home or self-care (01) | LOC: NFLDREF 10-21 04:02 | PROVIDERS: PCP Family Medicine; Referring Provider Family Medicine; Visit Provider Internal Medicine | DX: R30.0 Dysuria (principal); N30.00 Acute cystitis without hematuria | CPT/HCPCS: 87086 ==

== ENCOUNTER 2025-01-01 13:45 | Outpatient (CLI) | payer MEDICARE, SELFPAY ==
--- NOTE | 2025-01-01 14:00 | CRLHL7_ITS ---
For Patients: As a result of the Century Cures Act, medical imaging exams and procedure reports are released immediately into your electronic medical record. You may view this report before your referring provider. If you have questions, please contact your health care provider. INDICATION: BILATERAL SCREENING MAMMOGRAM, ASYMPTOMATIC 74 Y/O FEMALE COMPARISON: 09/07/23, 07/22/22, 07/14/21 TECHNIQUE: CC and MLO views were obtained. These mammographic images have been obtained using full-field digital technique. These mammographic images were interpreted with the benefit of computer aided detection and tomosynthesis. BREAST COMPOSITION: There are scattered areas of fibroglandular density. FINDINGS: No suspicious findings. ASSESSMENT: BI-RADS 1 Negative RECOMMENDATION: Annual screening mammogram. A lay language report of this examination will be provided to the patient. Dictated by: Eric Hardy MD @ 01/02/2025 11:13:27 (Electronically Signed)
== END 2025-01-01 13:46 | disposition home or self-care (01) ==
LOC: MAMMO 13:46
PROVIDERS: PCP Family Medicine; Visit Provider Family Medicine
DX: Z12.31 Encounter for screening mammogram for malignant neoplasm of breast (principal)
CPT/HCPCS: 77063; 77067

== ENCOUNTER 2025-01-24 14:59 | Outpatient (CLI) | payer MEDICARE, SELFPAY | END 2025-01-24 15:00 | disposition home or self-care (01) | LOC: NFLDREF 01-26 16:27 | PROVIDERS: PCP Family Medicine; Referring Provider Family Medicine; Visit Provider Registered Nurse | DX: N30.00 Acute cystitis without hematuria (principal); B96.20 Unspecified Escherichia coli [E. coli] as the cause of diseases classified elsewhere | CPT/HCPCS: 87086 ==

== ENCOUNTER 2025-07-12 12:48 | Outpatient (CLI) | payer MEDICARE, SELFPAY | END 2025-07-12 12:49 | disposition home or self-care (01) | LOC: CT 12:49 | PROVIDERS: PCP Family Medicine; Visit Provider Orthopaedic Surgery Sports Medicine | DX: Z01.818 Encounter for other preprocedural examination (principal); M19.011 Primary osteoarthritis, right shoulder | CPT/HCPCS: 73200 ==

== ENCOUNTER 2025-07-16 09:36 | Outpatient (CLI) | payer MEDICARE, SELFPAY | END 2025-07-16 09:37 | disposition home or self-care (01) | LOC: NFLDREF 07-19 07:46 | PROVIDERS: PCP Family Medicine; Referring Provider Family Medicine; Visit Provider Family Medicine | DX: E78.5 Hyperlipidemia, unspecified (principal); Z79.1 Long term (current) use of non-steroidal anti-inflammatories (NSAID); M81.0 Age-related osteoporosis without current pathological fracture; Z86.39 Personal history of other endocrine, nutritional and metabolic disease | CPT/HCPCS: 80053; 80061; 82306; 82652; 84443 ==

== ENCOUNTER 2025-08-08 06:20 | Day surgery (SDC) | payer MEDICARE, SELFPAY ==
[2025-08-08] VITALS (18 sets, daily range): BP systolic 99–142; BP diastolic 55–85; PULSE 72–98; RESP 12–17; TEMP 36.4–37.2; O2SAT 91–100; BMI 28.5
[2025-08-08] MEDS: LACTATED RINGERS 1000 ML 1,000 ML 100 ML IV ×2 (06:55→10:25)
[2025-08-08] MEDS: SODIUM CHLORIDE 0.9 % (FLUSH) 10 ML SYRINGE IVF (06:55)
[2025-08-08] MEDS: OXYCODONE (CR) 10 MG TAB.ER.12H PO (07:00)
[2025-08-08] MEDS: ACETAMINOPHEN 500 MG TABLET 1000 MG PO (07:00)
--- NOTE | 2025-08-08 07:08 | W.PM.H&PU ---
History & Physical Update History & Physical Update H&P Reviewed and patient assessed: No changes noted
[2025-08-08] MEDS: MIDAZOLAM HCL 1 MG/ML inj IVP (07:34)
--- NOTE | 2025-08-08 07:38 | W.PM.NB ---
Nerve Block Nerve Block Time Seen by Provider: 07:36 Date Seen: 08/08/25 Type of block requested by surgeon for post-operative analgesia: supraclavicular Side: right Time out performed: Yes Verification of patient name: Yes Verification of date of : Yes Site marking: site marked Name of person performing procedure: Noel Continuous monitoring Was continuous monitoring of O2 sat, B/P, link trainer mechanic, recorded every 15 minutes?: Yes Procedure Checklist: sterile prep, needles and gloves Ultrasound guided. Images saved: Yes Medications given in 5ml increments after negative aspiration: Ropivicaine %: 0.5 mL: 15 Needle gauge: 22 Precedex (mcg): 25 Patient tolerated procedure well: Yes Block Charges Block Charge (with Pro Fee): Brachial Plexus Use of Ultrasound Machine for Block: Yes- US Guidance/pain block
--- NOTE | 2025-08-08 07:40 | SUR.PREOP ---
TIME?OUT:?0733 PT/RN/MDA?VERIFICATION?OF?SURGICAL?SITE-RIGHT SHOULDER,?PROCEDURE,?NERVE BLOCK AND?CONSENT OBTAINED?PRIOR?TO?INVASIVE?PROCEDURE.
[2025-08-08] MEDS: TRANEXAMIC ACID 100 MG/ML INJ 1000 MG IV (08:09)
[2025-08-08] MEDS: LACTATED RINGERS 1000 ML 1,000 ML 125 ML IV (09:20)
--- NOTE | 2025-08-08 09:36 | P.ORPRC_ITS ---
Procedure Note Date of procedure: 08/08/25 Procedure: PREOPERATIVE DIAGNOSIS: 1. Right shoulder cuff tear arthropathy POSTOPERATIVE DIAGNOSIS: 1. Right shoulder cuff tear arthropathy 2. Right long head of the biceps tendinopathy and tenosynovitis PROCEDURE: 1. Right reverse shoulder arthroplasty. 2. Right long head of biceps open tenodesis SURGEON: Emerson Greenwood MD. TELEPHONE MESSENGER: MILES Agudelo - Of note, a skilled technical assistant was critical for this case to aid in patient positioning, tissue retraction, limb manipulation/positioning, retraction for glenoid exposure, which was challenging, awareness and protection of critical structures, and closure. ANESTHESIA: General plus supraclavicular block EBL: 200 ml IMPLANTS: DJ0 surgical Altivate humeral stem size 12 small shell, short with P2 porous coating vitamin E neutral poly small socket insert RSP glenoid base plate P2 porous coating with 3 perimeter locking screws 32 neutral glenosphere with retaining screw COMPLICATIONS: None evident INDICATIONS: The patient is a pleasant 74-year-old female who has experienced severe right shoulder pain and difficulty with use. Workup included imaging which revealed severe osteoarthrosis along with concern for rotator cuff quality. Physical exam was consistent with associated pain. Given the deformity, the dysfunction, and the pain, and failure of nonoperative management, recommendation was made for surgery. DESCRIPTION OF PROCEDURE: Following a thorough discussion of risks, benefits, and alternatives, consent was obtained and the left shoulder was marked. The patient was brought to the operating room and placed supine on the operating table. Induction of anesthesia was undertaken. 1 g IV Ancef and 1 g tranexamic acid was administered within 1 hr of incision preoperatively. Appropriate time-out was performed identifying proper patient, site, and procedure. The operative extremity was prepped and draped in the appropriate sterile fashion using ChloraPrep after the patient was positioned in the [facility] chair position with head in neutral alignment and all bony prominences well padded. A longitudinal incision was made for deltopectoral approach. Deltoid was retracted laterally. Cephalic vein was identified and retracted laterally as well. Vein was spared/protected throughout the case. The clavipectoral fascia was identified and divided longitudinally staying lateral to the conjoined tendon / coracoid. The conjoined tendon was protected with a blunt Hohmann. The long head of the biceps tendon was identified and the bicipital sheath released. The upper 1/4 of the pectoralis major was also released from its insertion. The long head of the biceps was tenodesed to the pectoralis major tendon. The remaining proximal tendon tissue was excised. The rotator cuff was inspected and found to have good integrity with the subscapularis but fair integrity with a supraspinatus], and a decision for a reverse shoulder arthroplasty was confirmed. The long head of biceps, of note, was significant flattened, thickened, with abundant tenosynovitis. A subscapularis cuff of tissue was left via tenotomy for later repair with the remaining subscapularis released in a subperiosteal fashion with the Bovie. This was tagged for later repair. The 3 sisters were cauterized. The upper subscapularis was released from the capsule with a curved Begum scissors towards the glenoid. The inferior subscapularis was divided from the capsular tissue on its caudal surface with particular caution for the axillary nerve. This was palpated anterior to the subscapularis both prior to and near the finish of the case. Inferior humeral head osteophytes were excised with caution taken throughout the case with regards to the axillary nerve. The humerus was dislocated, and humeral head cut completed. Then a protector plate was applied. We turned our attention to the glenoid. The humerus was retracted posteriorly. The subscap was protected anteriorly and the labrum/long head biceps origin was excised circumferentially. The capsule was released along the anterior and inferior portions of the glenoid cautiously with a Rodriguez elevator being careful not to penetrate deep. The glenoid had appropriate exposure, and was prepared with the cannulated system with a target of approximately 0-5? of inferior tilt and corrected version based on preoperative templating (patient had ~5? of retroversion initially). Utilizing the match Point 3D printed guide, the guide pin was placed. The 3D printed jig removed and after placing the guide pin, the tap was placed followed by the glenoid reaming. The real base plate was opened, and inserted, and excellent compression/purchase was achieved with the central screw. Peripheral screws were then drilled, measured, and placed. The glenosphere was then placed consistent with the preoperative plan utilizing the above noted glenosphere. After securing the glenosphere with the locking, torque limited screw, attention was turned back to the humerus. The guide pin was placed based on preoperative templating followed by reaming of the glenoid and tapping of the central screw. The real base plate was opened, and inserted, and excellent compression/purchase was achieved with the central screw. Peripheral screws were then drilled, measured, and placed. The glenosphere was then placed consistent with the preoperative plan utilizing the above noted glenosphere. After securing the glenosphere with the locking, torque limited screw, attention was turned back to the humerus. The humerus reaming was undertaken with the centered guide. A canal finder/reamer was sequentially enlarged by hand consistent with the preop plan. The real humeral stem was then opened and inserted with excellent metaphyseal fit and stability. A 3 minute Betadine soak was performed followed by a thorough irrigation with normal saline. Subscapularis was repaired with #1 PDS to the cuff of tissue on the lesser tuberosity. Excellent reapproximation of tissue achieved. Hemostasis was found to be appropriate. The deltopectoral interval was reapproximated with 0 Vicryl, subcutaneous and subcuticular closure was then performed with number 2-0 Vicryl and 4-0 Monocryl, respectively. A skilled technical assistant was critical for this case to aid in patient positioning, tissue retraction, limb manipulation/positioning, retraction for glenoid exposure, which was challenging, awareness and protection of critical structures, and closure. PLAN: 1. Sling at all times for the operative upper extremity. 2. AROM of elbow, forearm, wrist, and digits as tolerated. 3. OT consults for education and assistance. 4. Early ambulation, and SCDs for DVT prophylaxis. 5. Analgesics p.r.n.
--- NOTE | 2025-08-08 10:03 | CRLHL7_ITS ---
For Patients: As a result of the Cures Act, medical imaging exams and procedure reports are released immediately into your electronic medical record. You may view this report before your referring provider. If you have questions, please contact your health care provider. Indication: Total shoulder replacement Technique: Two views right shoulder Findings/Impression: Hardware from a right shoulder arthroplasty is in satisfactory position. Bone alignment is normal. No sign of acute fracture. Postop changes are within normal limits. Dictated by Eric Hardy MD @ 08/08/2025 11:01:06 AM (Electronically Signed)
--- NOTE | 2025-08-08 10:08 | P.ANES_ITS ---
Anesthesia Charges Start Date/Time Anesthesia Start Date: 08/08/25 Anesthesia Start Time: 07:42 Stop Date/Time Anesthesia Stop Date: 08/08/25 Anesthesia Stop Time: 10:01 Summary Extremes of Age - Over 70 or under 1: SPECIALTY TRIMMER Coding CPT Codes CPT Codes: ANESTH SHOULDER REPLACEMENT - 56754 ([id number]) P2 - PATIENT W/MILD SYST DISEASE, QK - ORACLE DISTRIBUTION CONSULTANT 2-4 CNCRNT ANES PROC Additional Codes: Summary - Extremes of Age - Over 70 or under 1: SPECIALTY TRIMMER ([id number])
--- NOTE | 2025-08-08 10:08 | W.ANESCHARGE ---
Anesthesia Charges Start Date/Time Anesthesia Start Date: 08/08/25 Anesthesia Start Time: 07:42 Stop Date/Time Anesthesia Stop Date: 08/08/25 Anesthesia Stop Time: 10:01 Summary Extremes of Age - Over 70 or under 1: AIRWAYS OPERATIONS SPECIALIST Coding CPT Codes CPT Codes: ANESTH SHOULDER REPLACEMENT - 03085 ([id number]) P2 - PATIENT W/MILD SYST DISEASE, QK - DRY CLEANING TEACHER 2-4 CNCRNT ANES PROC Additional Codes: Summary - Extremes of Age - Over 70 or under 1: AIRWAYS OPERATIONS SPECIALIST ([id number])
--- NOTE | 2025-08-08 10:35 | P.ANES_ITS ---
Anesthesia Charges Start Date/Time Anesthesia Start Date: 08/08/25 Anesthesia Start Time: 07:42 Stop Date/Time Anesthesia Stop Date: 08/08/25 Anesthesia Stop Time: 10:01 Summary Extremes of Age - Over 70 or under 1: MDA Coding CPT Codes CPT Codes: ANESTH SHOULDER REPLACEMENT - 08969 ([id number]) P2 - PATIENT W/MILD SYST DISEASE, QK - SENIOR INSTRUMENTATION ENGINEER 2-4 CNCRNT ANES PROC, QX - ELECTION ASSISTANT SVC W/ MD MED DIRECTION Additional Codes: Summary - Extremes of Age - Over 70 or under 1: MDA ([id number])
--- NOTE | 2025-08-08 10:35 | W.ANESCHARGE ---
Anesthesia Charges Start Date/Time Anesthesia Start Date: 08/08/25 Anesthesia Start Time: 07:42 Stop Date/Time Anesthesia Stop Date: 08/08/25 Anesthesia Stop Time: 10:01 Summary Extremes of Age - Over 70 or under 1: MDA Coding CPT Codes CPT Codes: ANESTH SHOULDER REPLACEMENT - 88018 ([id number]) P2 - PATIENT W/MILD SYST DISEASE, QK - FASHION BUYER 2-4 CNCRNT ANES PROC, QX - CASUALTY INSURANCE CLAIM ADJUSTER SVC W/ MD MED DIRECTION Additional Codes: Summary - Extremes of Age - Over 70 or under 1: MDA ([id number])
== END 2025-08-08 13:45 | disposition home or self-care (01) ==
LOC: OR 06:21
PROVIDERS: PCP Family Medicine; Visit Provider Orthopaedic Surgery Sports Medicine
PROC: 0RRJ0JZ Replacement of Right Shoulder Joint with Synthetic Substitute, Open Approach (ICD-10-PCS; CPT 23472; principal; 2025-08-08 07:30)
DX: M75.101 Unspecified rotator cuff tear or rupture of right shoulder, not specified as traumatic (principal); M75.21 Bicipital tendinitis, right shoulder; G89.18 Other acute postprocedural pain
CPT/HCPCS: 23472; 23430; 01638; 64415; 73030; 76942; 97110; 97165; 97535; 99100; A9270; C1713; C1776; J0330; J0690; J1100; J2250; J2371; J2405; J2704; J2710; J2795; J3010; J7120; L3670

== ENCOUNTER 2025-08-22 09:40 | Outpatient (CLI) | payer MEDICARE, SELFPAY | END 2025-08-22 09:41 | disposition home or self-care (01) | LOC: NFLDREF 08-27 10:28 | PROVIDERS: PCP Family Medicine; Referring Provider Family Medicine; Visit Provider Family Medicine | DX: N30.90 Cystitis, unspecified without hematuria (principal); B96.20 Unspecified Escherichia coli [E. coli] as the cause of diseases classified elsewhere | CPT/HCPCS: 87086 ==